=== PATIENT | female | born 1960 | race Caucasian/White ===

== ENCOUNTER 2023-06-04 15:39 | Inpatient (IN) | payer OTHER, SELFPAY ==
[2023-06-04 11:02] VITALS: BP 130/85
[2023-06-04] MEDS: ZOFRAN ODT (ORALLY DISINTEGRATING) 4 MG PO (11:07)
[2023-06-04] MEDS: ZOFRAN 4 MG IV ×2 (12:41→18:23)
[2023-06-04] MEDS: DILAUDID 1 MG IV ×2 (12:41→14:50)
[2023-06-04] MEDS: NSS 1000 IV ×2 (12:44→17:46)
[2023-06-04 12:45] LABS: % Basophils 0.2 % (0-2); % Eosinophils 0.7 % (0-6); % Immature Granulocytes 0.2 % (0-0.5); % Lymphocytes 53.9 % (20.5-51.1); % Monocytes 3.6 % (1.7-9.3); % Neutrophils 41.4 % (42.2-75.2); Absolute Eosinophils 0.1 10^3/uL (0-0.7); Absolute Lymphocytes 5.3 10^3/uL (1.2-3.4); Absolute Monocytes 0.4 10^3/uL (0.1-0.6); Absolute Neutrophils 4.1 10^3/uL (1.4-6.5); Hematocrit 43.9 % (37.0-47.0); Mean Corp Hgb Conc. 34.2 g/dL (33.0-37.0); Mean Corpuscular Hgb 32.3 pg (27.0-31.0); Mean Corpuscular Volume 94.4 fL (81.0-99.0); Mean Platelet Volume 9.9 fL (7.4-10.4); Nucleated Red Blood Cells % 0 %; Platelet Count 202 10^3/uL (130-400); Red Blood Cell Count 4.65 10^6/uL (4.20-5.40); White Blood Cell Count 9.8 10^3/uL (4.8-10.8)
[2023-06-04 12:47] VITALS: BMI 25.9
[2023-06-04 12:57] LABS: ALT (SGPT) 23 U/L (0-35); AST (SGOT) 24 U/L (14-36); Alkaline Phosphatase 80 U/L (38-126); Blood Urea Nitrogen 18 mg/dl (7-17); Calcium 9.1 mg/dl (8.4-10.2); Carbon Dioxide 27 mmol/L (22-30); Chloride 105 mmol/L (98-107); Estimated Creatinine Clearance 99 ml/min; Glucose 104 mg/dl (70-99); Potassium 4.4 mmol/L (3.5-5.1); Sodium 134 mmol/L (135-145); Total Bilirubin 0.4 mg/dl (0.2-1.3); eGFR > 60.00
[2023-06-04 13:40] LABS: Lipase 60 U/L (23-300)
[2023-06-04 14:38] VITALS: BP 113/74
--- NOTE | 2023-06-04 14:54 | ED.GENMED ---
History of Present Illness
General
Chief Complaint: Abdominal Pain
Source: patient
Exam Limitations: none
Time Seen by Provider: 06/04/23 12:13
Nursing documentation reviewed up to this point in time: agreed with
Travel History
Have you had any contact with someone who has COVID-19?: No
Do you have any symptoms of coronavirus? Fever > 100 degrees, chills, cough, shortness of breath, sore throat, loss of taste or smell, muscle aches, or headache?: No
History of Present Illness
History of Present Illness:
pt is a 62 y/o F with h/o CANDELARIO after cervical cancer treatment
h/o recurrent SBO
had been through [facility] system but she moved to this area
was dmitted in 02/03 with SBO
sometimes requires NGT and other times not
started with simlar pain and distention and n/v this am
has only vomited once
the pain is same as usual
passed gas a little here
no diarrhea, fever, chills, bloody stool
Past History
Past History
ED Past Medical History: Cancer (cervical cancer), GERD, Psychiatric (Anxiety, Panic disorder) and Other (Bowel obstruction, Adhesions)
ED Past Surgical History: Gynecological (Hysterectomy) and Other (lymph node disectioin. )
Social History
Tobacco: Non-smoker
Alcohol: Occasional
Drug: Marijuana
Personal:
Living: with family
Review of Systems
Review of Systems
Allergies reviewed?: Yes
All Other Systems: Not applicable
Phy Exam
Physical Exam
Physical Exam:
GENERAL: Alert , in no apparent distress
EYE: pupils equal and reactive
NECK: Supple
ENT: o/p clr, mmm.
CARDIAC: Regular rate and rhythm .
LUNGS: Clear breath sounds bilaterally, no acute respiratory distress, no wheezes/rales/rhonchi
ABDOMEN: Soft, lower abd tenderness, mild distension no r/g, no cvat, normal bowel sounds
NEUROLOGICAL: Alert and oriented, no focal neuro deficits
SKIN: Warm and dry, skin intact.
MUSCULOSKELETAL: No edema, well perfused. neg danae's sign
PSYCH: Normal and appropriate interaction.
Course
Orders/Labs/Results
Orders:
Orders
06/04/23 11:07
Ondansetron Orally Disint [Zofran Odt (Orally Disintegrating)] 4 mg .ROUTE .STK-MED ONE
Ondansetron Orally Disint [Zofran Odt (Orally Disintegrating)] 4 mg PO NOW STA
06/04/23 12:28
CT Abd/Pel (IV only)-DH only Urgent
Comment:
Reason For Exam: h/o sbo, vomiting and pain
0.9% Sodium Chloride 1000 ml [Nss] 1,000 ml IV BOLUS
HYDROmorphone [Dilaudid] 1 mg IV NOW STA
06/04/23 12:29
Complete Blood Count/With Diff Urgent
Comprehensive Metabolic Panel Urgent
Lipase Urgent
06/04/23 12:34
Ondansetron Injectable [Zofran] 4 mg IV NOW STA
06/04/23 14:49
HYDROmorphone [Dilaudid] 1 mg .ROUTE .STK-MED ONE
06/04/23 14:50
HYDROmorphone [Dilaudid] 1 mg IV NOW STA
Abnormal Lab Results
06/04/23
12:29
MCH 32.3 H pg
(27.0-31.0)
Sodium 134 L mmol/L
(135-145)
BUN 18 H mg/dl
(7-17)
Glucose 104 H mg/dl
(70-99)
Total Protein 6.0 L g/dl
(6.3-8.2)
06/04/23 12:29
06/04/23 12:29
Vital Signs
Initial and Last Documented VS:
Initial Vital Signs
Temp Pulse Resp BP Pulse Ox
97.8 F 89 18 130/85 97
06/04/23 11:02 06/04/23 11:02 06/04/23 11:02 06/04/23 11:02 06/04/23 11:02
Last Documented Vital Signs
Temp Pulse Resp BP Pulse Ox
98.1 F 65 18 113/74 98
06/04/23 14:38 06/04/23 14:38 06/04/23 14:38 06/04/23 14:38 06/04/23 14:38
MDM/Problems Addressed
Differential Diagnosis Includes:
sbo, partial sbo
MDM/Problems Addressed:
62 y/o F with h/o cervical cancer s/p CANDELARIO, with h/o recurrent SBO (x about 10 total in the past few years); nonop management; sometimes need NG sometimes not; started with pain an nausea this morning 1 episode vomiting, no active vomiting here, labs
ok, ct suggests partial SBO but she needs obs admission for ivf and pain meds, her pain returned and she has required another dose of iv pain meds;
gen surgery made aware
*Critical Care Note
Total Time (30-74mins, 75-104mins- exclusive of procedures): Not Applicable
ED Attending Note
-
Portions of this chart may have been created with voice recognition software.� Occasional wrong word or��sound alike� substitutions may have occurred due to the inherent limitations of voice recognition software.
Discharge Plan
Departure
Patient Disposition: Admit
Date of Disposition: 06/04/23
Time of Disposition: 14:50
Admit to: Med/Surg
Presentation/result/management discussed w/ accepting MD/DO: Hospitalist
Condition: Fair
Covid-19: Not Applicable
Discharge Problem:
SBO (small bowel obstruction)
Prescriptions:
No Action
alprazolam 0.5 mg Tablet
0.5 mg PO BID PRN (Reason: Anxiety)
omeprazole 20 mg Capsule,Delayed Release(Dr/Ec)
20 mg PO DAILY
cholecalciferol (vitamin D3) [Vitamin D3] 25 mcg (1,000 unit) Tablet
25 mcg PO DAILY
mecobalamin (vitamin B12) [B12 Active] 1,000 mcg Tablet,Chewable
1,000 mcg PO DAILY
fluoxetine [Prozac] 10 mg Capsule
10 mg PO DAILY
Referrals:
Maria Isabel Bruce MD [Family Provider] -
Interventions
Interventions:
*Risk Screen - Suicide Last Done: 06/04/23 11:02
*General Assessment Last Done: 06/04/23 11:02
*Neglect/Abuse Screening Last Done: 06/04/23 11:02
ED- Fall Risk Assessment Last Done: 06/04/23 14:40
*ED COVID-19 Vaccine History Last Done: 06/04/23 11:02
BE-Gecwit-Oojgrfzpgh Assessment Last Done: 06/04/23 14:39
Discharge Date and Time
Print Language: SWEDISH
--- NOTE | 2023-06-04 15:03 | HPS.HSE ---
Family Physician
-
Family Physician: Maria Isabel Bruce
Chief Complaint
-
abd pain
History of Present Illness
62-year-old female complaining of abdominal pain with distention/nausea and vomiting x 1 this a.m. She does report passing some gas.had formed stool last night . She has history of recurrent bowel obstruction last 12 January 2023 prior April 2022.
She denies fever, chills, chest pain, palpitations, shortness breath, cough, diarrhea, urinary symptoms.
PMH recurrent SBO last 1 01/28/2023, prior April 2022 at [facility], Hx cervical cancer status post hysterectomy, ex lap/JO x 2 anxiety, depression, GERD, former smoker [id number] total, occasional marijuana for anxiety
Medical History
Past Medical History
Past Medical History: Reports Other
Additional Past Medical History:
Recurrent SBO January 28, 2023 [place], April 2022 at [facility]
Cervical Cancer
Anxiety / Depression
GERD
Past Surgical History: Reports Other
Additional Past Surgical History:
CANDELARIO
Ex lap / JO (x 2)
Social History
Tobacco: Former Smoker (Quit several years ago. Approx 30 pack years total use.)
Alcohol: Occasional
Drug: Marijuana (Medical card for anxiety.)
Personal: (newly in the past few weeks.)
Living: With Family
Family History
Family History: Not pertinent
Allergies / Home Medications
Allergies reflects when Allergies were last updated in [facility].
Home Medications with original date entered in [facility]
Allergy/Medication List:
Allergies
Allergy/AdvReac Type Severity Reaction Status Date / Time
Sulfa (Sulfonamide Allergy Unknown Verified 06/04/23 11:04
Antibiotics)
Home Medications
alprazolam 0.5 mg tablet 0.5 mg PO BID PRN Anxiety 01/28/23
cholecalciferol (vitamin D3) 25 mcg (1,000 unit) tablet (Vitamin D3) 25 mcg PO DAILY Supplement 01/28/23
mecobalamin (vitamin B12) 1,000 mcg chewable tablet (B12 Active) 1,000 mcg PO DAILY Supplement 01/28/23
omeprazole 20 mg capsule,delayed release 20 mg PO DAILY Gastrointestinal Issue 01/28/23
fluoxetine 10 mg capsule (Prozac) 10 mg PO DAILY depression/anxiety 06/04/23
Review of Systems
-
History Source: Patient
A 12 point ROS was completed and negative except as noted: Yes
Constitutional: Denies Fever or Chills
EENT: Denies Tearing or Runny Nose
Respiratory: Denies Cough or Trouble Breathing
Cardiac: Denies Chest Pain, Diaphoresis, Palpitations or Syncope
Abdomen/GI: Reports Abdominal Pain (lower abd), Nausea and Vomiting (x1); Denies Diarrhea or Constipated
: Denies Dysuria, Frequency, Flank Pain, Incontinence or Difficulty Voiding
Musculoskeletal: Denies Joint Pain or Edema
Skin: Denies Itching or Rash
Neurological: Denies Dizzy, Headache or Weakness
Endocrine: Reports No Symptoms
Hematologic/Lymphatic: Reports No Symptoms
Psych: Reports Calm
Physical Exam
Vital Signs
Vital Signs
Temp Pulse Resp BP Pulse Ox
98.1 F 65 18 113/74 98
06/04/23 14:38 06/04/23 14:38 06/04/23 14:38 06/04/23 14:38 06/04/23 14:38
Physical Exam
General: No Apparent Distress and Conversant; No Pain, Fever or Chills
HEENT: NormoCephalic, Anicteric, Moist mucous membranes, PERRLA, [place] Conjunctivae and No Ptosis
Respiratory: Clear; No Wheezes, Rales or Rhonchi
Cardiac: S1/S2 and Regular Rhythm; No Murmur, Rub, Gallop or Peripheral Edema
Breast: Deferred by me
GI: Soft, Non Distended, Normal Bowel Sounds, Tender (lower abdomen) and No Hepatosplenomegaly
Rectal: Deferred by Provider
Genito-urinary: Deferred by me
Musculoskeletal: No Clubbing, No Cyanosis and No Edema
Skin: Warm and Dry; No Rash or Jaundice
Neuro: AO x 3, No Motor Deficits, Nonfocal/grossly intact and No Sensory Deficits; No Slurred Speech, Facial Droop, Tremors or Sedated
Psych: Calm
Laboratory Results
-
06/04/23 12:
06/04/23 12:
Laboratory Results
Total Bilirubin 0.4 mg/dl (0.2-1.3) 06/04/23 12:
AST 24 U/L (14-36) 06/04/23 12:
ALT 23 U/L (0-35) 06/04/23 12:
Alkaline Phosphatase 80 U/L (38-126) 06/04/23 12:
Lipase 60 U/L (23-300) 06/04/23 12:29
Data Reviewed
-
CT Scan: Report Reviewed by me
Lab Data: Labs Reviewed by me
Impression/Plan
-
Impression/plan:
Inpatient MedSurg
#Partial small bowel obstruction
#Hx SBO�recurrent treated medically/conservatively in past(last one was 01/28/2023
-N.p.o.
-If vomiting may require NG tube
-IV NSS
-IV Zofran
-IV PPI
-Consult surgery-Dr. Ronquillo aware
CT abdomen/pelvis IV contrast: Dilated mid small bowel with accompanying small bowel fecal sign measuring up to 4 cm likely on the basis of
adhesions possibly resulting in partial small bowel obstruction
#GERD
-Hold p.o. omeprazole give IV Protonix
#Anxiety
-Hold alprazolam 0.5 mg twice daily as needed
-Hold Prozac 10 mg daily
-Uses medical marijuana as needed
#Cervical cancer with total hysterectomy
#Laparoscopic with debulking
#Lysis of adhesions
# Former smoker
DVT prophylaxis
SCDs
Full code
--- NOTE | 2023-06-04 15:49 | W.PN.UPDATE ---
Update Note
Progress Note Update
This note serves as supplemental to history and physical dated 06/03 by Atiya Adan
62-year-old female with past medical history of recurrent SBO last 1 01/28/2023, prior April 2022 at [facility], Hx cervical cancer status post hysterectomy, ex lap/JO x 2 anxiety, depression, GERD, former smoker [id number] total, occasional
marijuana for anxiety now presents for abdominal pain, distention, nausea and vomiting this morning. Had passed gas in the waiting room although pain still present. Vitals grossly unremarkable. Labs with sodium 134. CAT scan with partial bowel
obstruction. Surgery consulted. Continue conservative management IV fluids, n.p.o., antiemetic, PPI.
--- NOTE | 2023-06-04 16:10 | CON.GS ---
Consultation
-
Date/Time Consultation Requested: 06/04/2023 3 PM
Date/Time Consultation Performed: 06/04/2023 4 PM
Requesting Provider: Dr. Khalil
Performing Provider: Dr. Perez
Reason for Consultation: Small bowel obstruction
Medical History
-
Chief Complaint: Abdominal pain, nausea
History of Present Illness:
This is a 62-year-old female with a history of cervical cancer status post total abdominal hysterectomy via Pfannenstiel incision as well as a lower exploratory laparotomy for ? Lymphadenopathy and lysis of adhesions as well as a laparoscopic lysis
of adhesions back in 2018 with history of recurrent small bowel obstructions most recently managed nonoperatively back in April and January 2023. She Represents today with similar abdominal pain as well as nausea but no vomiting. She does endorse
passing flatus earlier today, but minimal. The patient denies Fever, Chest Pain, Shortness Of Breath, Vomiting, changes in urinary habits, unintentional weight loss, jaundice, icterus, acolic stools.
Past Medical History
Past Medical History: Other (Cervical cancer, GERD, anxiety, small bowel obstructions.)
Past Surgical History: Other (Total abdominal hysterectomy, exploratory laparotomy, lap lysis of adhesions.)
Social History
Tobacco: Former Smoker
Alcohol: Occasional
Drug: Marijuana
Personal:
Living: With Family
Family History
Family History: Reviewed & Not Pertinent
Allergies / Home Medications
Allergy/AdvReac Type Severity Reaction Status Date / Time
Sulfa (Sulfonamide Allergy Unknown Verified 06/04/23 11:04
Antibiotics)
�Medication �Instructions �Recorded �Confirmed �Type
alprazolam 0.5 mg tablet 0.5 mg PO BID PRN Anxiety 01/28/23 06/04/23 History
cholecalciferol (vitamin D3) 25 25 mcg PO DAILY Supplement 01/28/23 06/04/23 History
mcg (1,000 unit) tablet (Vitamin
D3)
mecobalamin (vitamin B12) 1,000 1,000 mcg PO DAILY Supplement 01/28/23 06/04/23 History
mcg chewable tablet (B12 Active)
omeprazole 20 mg capsule,delayed 20 mg PO DAILY Gastrointestinal 01/28/23 06/04/23 History
release Issue
fluoxetine 10 mg capsule (Prozac) 10 mg PO DAILY depression/anxiety 06/04/23 06/04/23 History
Review of Systems
-
All other systems: Negative unless noted
A 10 point review of systems was completed, and was negative except as per HPI.
Physical Exam
Vital Signs
Temp Pulse Resp BP Pulse Ox
98.1 F 65 18 113/74 98
06/04/23 14:38 06/04/23 14:38 06/04/23 14:38 06/04/23 14:38 06/04/23 14:38
06/03/23 06/04/23 06/05/23
06:59 06:59 06:59
Actual Weight 79.379 kg
Body Mass Index (BMI) 25.9
Lab Results
06/04/23 12:29
06/04/23 12:29
WBC 9.8 10^3/uL (4.8-10.8) 06/04/23 12:29
Hgb 15.0 g/dL (12.0-16.0) 06/04/23 12:
Hct 43.9 % (37.0-47.0) 06/04/23 12:29
Plt Count 202 10^3/uL (130-400) 06/04/23 12:29
Abs Immat Gran (auto) 0.0 10^3/uL (0-0.05) 06/04/23 12:29
Neutrophils % 41.4 % (42.2-75.2) L 06/04/23 12:29
Physical Exam
General: Well Developed
HEENT: Normocephalic
Respiratory: Non Labored Respirations
GI: Soft, Non Distended and Tender (Focally tender in the left lower quadrant.)
Psych: Calm
Data Reviewed
-
CT Scan: Image Personally Visualized and interpreted, Report Reviewed by me, Discussed with Physician and Discussed with Patient
Labs: Labs Reviewed by me and Discussed with Patient
Total Time Spent with Patient (in minutes): 30
Assessment / Plan
-
This is a 62-year-old female with a history of cervical cancer status post total abdominal hysterectomy via Pfannenstiel, recurrent SBO cyst status post exploratory laparotomy, lysis of adhesions (last operation was in 2018), with multiple
readmissions for recurrent SBO's all manage since 2018 nonoperatively who presents with 1 day history of abdominal pain, nausea. Exam and imaging concerning for recurrent high-grade small bowel obstruction.
I reviewed the CT scan independently as well as with the reviewing radiologist. Fairly dilated segment of small bowel with some thickening and adjacent fluid however there does not seem to be any stigmata of a closed-loop obstruction.
Will pursue nonoperative management of small bowel obstruction for now.
N.p.o., IV fluids.
Can hold off on NG tube for now as her proximal bowel and stomach do not appear distended. If she does vomit however would place an NG tube.
Will follow clinically for now though anticipate a contrasted study in the next couple days.
All patient questions answered. Plan of care discussed with primary. General surgery will continue to follow.
I spent roughly 60 minutes in total for the care of this patient today including direct patient care and counseling, reviewing labs, imaging, coordination of care, as well as documentation.
[2023-06-04 17:28] VITALS: BP 168/67; BMI 26.3
[2023-06-04] MEDS: LOVENOX SC (17:58)
[2023-06-04] MEDS: DILAUDID 0.5 MG IV ×2 (18:23→23:43)
--- NOTE | 2023-06-04 19:30 | PTCARENOTE ---
Received patient from day shift RN. Pt AAOx3, VSS. Pt ambulatory in room, able to make needs known. Hypoactive BS, denying pain or nausea at this time. Oriented to room, call villareal and plan of care.
[2023-06-04 23:54] VITALS: BP 108/50
[2023-06-05] MEDS: DILAUDID 0.5 MG IV (04:37)
[2023-06-05] MEDS: NSS 1000 IV ×2 (04:37→13:14)
[2023-06-05] MEDS: DILAUDID 1 MG IV ×2 (05:00→09:52)
[2023-06-05 06:55] LABS: % Basophils 0.4 % (0-2); % Eosinophils 1.1 % (0-6); % Immature Granulocytes 0.1 % (0-0.5); % Lymphocytes 59.8 % (20.5-51.1); % Monocytes 4.3 % (1.7-9.3); % Neutrophils 34.3 % (42.2-75.2); Absolute Eosinophils 0.1 10^3/uL (0-0.7); Absolute Lymphocytes 4.3 10^3/uL (1.2-3.4); Absolute Monocytes 0.3 10^3/uL (0.1-0.6); Absolute Neutrophils 2.5 10^3/uL (1.4-6.5); Hematocrit 39.4 % (37.0-47.0); Hemoglobin 12.9 g/dL (12.0-16.0); Mean Corp Hgb Conc. 32.7 g/dL (33.0-37.0); Mean Corpuscular Hgb 31.2 pg (27.0-31.0); Mean Corpuscular Volume 95.4 fL (81.0-99.0); Mean Platelet Volume 9.8 fL (7.4-10.4); Nucleated Red Blood Cells % 0 %; Platelet Count 188 10^3/uL (130-400); Red Blood Cell Count 4.13 10^6/uL (4.20-5.40); Red Cell Dist. Width 13.1 % (11.5-14.5); White Blood Cell Count 7.2 10^3/uL (4.8-10.8)
[2023-06-05 07:19] LABS: Blood Urea Nitrogen 13 mg/dl (7-17); Calcium 8.3 mg/dl (8.4-10.2); Carbon Dioxide 29 mmol/L (22-30); Chloride 105 mmol/L (98-107); Estimated Creatinine Clearance 85 ml/min; Glucose 94 mg/dl (70-99); Potassium 4.4 mmol/L (3.5-5.1); Sodium 135 mmol/L (135-145); eGFR > 60.00
[2023-06-05 08:20] VITALS: BP 95/61
[2023-06-05 09:21] VITALS: BP 117/60; BP 145/86; PULSE 71; O2SAT 98
[2023-06-05] MEDS: ZOFRAN 4 MG IV (09:52)
[2023-06-05] MEDS: PROTONIX IV 40 MG IV (09:56)
[2023-06-05] MEDS: NSS (PRESERVATIVE FREE) 10 ML IV (09:57)
--- NOTE | 2023-06-05 10:19 | W.PN.GS2 ---
Today's Communication / Plan
-
-- Sips of clears, likely advancement tomorrow
-- If no improvement would proceed with contrast study
Assessment / Plan
-
Patient is a 62 yo F p/w SBO likely secondary to adhesions
Signs of clinical improvement with less pain, distention, passage of flatus. Recommend continued medical management. Given her recurrent episodes recommend outpatient follow-up for consideration of JO.
-- Sips of clears, likely advancement tomorrow
-- If no improvement would proceed with contrast study
-- OOB/ambulate
-- Correct lytes minimize narcotics as able
Subjective Data
-
Date of Service: June 05, 2023
Feels slightly improved. Less abdominal pain and distention, though not completely resolved. Passing flatus, no BM. No nausea or vomiting.
Objective Data
-
Intake and Output
06/04/23 06/05/23 06/06/23
06:59 06:59 06:59
Other:
Number of approximated MODERATE 4 1
amounts of urine
Vital Signs
Temp Pulse Resp BP Pulse Ox
97.7 F 64 18 95/61 98
06/05/23 08:20 06/05/23 08:20 06/05/23 08:20 06/05/23 08:20 06/05/23 08:20
Lab Results
06/05/23 05:53
06/05/23 05:53
Calcium 8.3 mg/dl (8.4-10.2) L 06/05/23 05:53
Total Bilirubin 0.4 mg/dl (0.2-1.3) 06/04/23 12:29
AST 24 U/L (14-36) 06/04/23 12:29
ALT 23 U/L (0-35) 06/04/23 12:29
Alkaline Phosphatase 80 U/L (38-126) 06/04/23 12:
Total Protein 6.0 g/dl (6.3-8.2) L 06/04/23 12:
Albumin 4.0 g/dl (3.5-5.0) 06/04/23 12:
Physical Exam
-
Gen: NAD
Abd: soft, mild tenderness, mild distension, non-peritoneal
--- NOTE | 2023-06-05 13:40 | W.PN.HOSP.TC ---
Today's Communication/Plan
-
sips of clears
supportive care
possible small bowel follow through depending on clinical course
Assessment / Plan
Assessment / Plan
Physical Exam
General: No Apparent Distress and Conversant; No Pain, Fever or Chills
HEENT: NormoCephalic, Anicteric, Moist mucous membranes, PERRLA, [place] Conjunctivae and No Ptosis
Respiratory: Clear; No Wheezes, Rales or Rhonchi
Cardiac: S1/S2 and Regular Rhythm; No Murmur, Rub, Gallop or Peripheral Edema
Breast: Deferred by me
GI: Soft, Non Distended, Normal Bowel Sounds, Tender (lower abdomen) and No Hepatosplenomegaly
Rectal: Deferred by Provider
Genito-urinary: Deferred by me
Musculoskeletal: No Clubbing, No Cyanosis and No Edema
Skin: Warm and Dry; No Rash or Jaundice
Neuro: AO x 3, No Motor Deficits, Nonfocal/grossly intact and No Sensory Deficits; No Slurred Speech, Facial Droop, Tremors or Sedated
Psych: Calm
#Partial small bowel obstruction
#Hx SBO�recurrent treated medically/conservatively in past(last one was 01/28/2023
-If vomiting may require NG tube
-IV NSS
-IV Zofran
-IV PPI
- Sips of clears, ADAT
-Surgery consulted
-OOB/ambulate
#GERD
-Hold p.o. omeprazole
-give IV Protonix
#Anxiety
-Hold alprazolam 0.5 mg twice daily as needed; add iv prn as needed
-Hold Prozac 10 mg daily
-Uses medical marijuana as needed
#Cervical cancer with total hysterectomy
#Laparoscopic with debulking
#Lysis of adhesions
# Former smoker
DVT prophylaxis
SCDs
Full code
Anticipated Discharge: 24 - 48 hours
Subjective/Interval History
-
Date of Service: June 05, 2023
slightly nauseous this am after ambulation
Objective Data
-
Labs:
Laboratory Results
06/05/23
05:53
WBC 7.2
Hgb 12.9
Hct 39.4
Plt Count 188
Sodium 135
Potassium 4.4
Chloride 105
Carbon Dioxide 29
BUN 13
Creatinine 0.7
Glucose 94
Calcium 8.3 L
Vital Signs:
Vital Signs
Temp Pulse Resp BP Pulse Ox
97.7 F 64 18 95/61 98
06/05/23 08:20 06/05/23 08:20 06/05/23 08:20 06/05/23 08:20 06/05/23 08:20
Review of Systems
-
History Source: Patient
All other systems: Not reviewed unless documented
Data Reviewed
-
CT Scan: Image personally visualized and interpreted and Report Reviewed by me
Labs: Labs Reviewed by me
[2023-06-05 16:10] VITALS: BP 92/75
--- NOTE | 2023-06-05 16:42 | CM ---
confectionery laboratory manager reviewed patient's chart and met with patient and patient lives with her spouse in a 2 story home, patient is independent with adl's and ambulation, no dme, patient drives, patient has a prescription plan and uses [facility] pharmacy.
PCP: Dr. Bruce
Plan; Home with spouse when stable.
[2023-06-05] MEDS: LOVENOX 40 MG SC (17:22)
[2023-06-05 23:38] VITALS: BP 115/67
[2023-06-06] MEDS: NSS 1000 IV ×2 (00:54→10:55)
[2023-06-06 05:41] LABS: % Basophils 0.4 % (0-2); % Immature Granulocytes 0.1 % (0-0.5); % Lymphocytes 61.8 % (20.5-51.1); % Monocytes 3.7 % (1.7-9.3); Absolute Eosinophils 0.1 10^3/uL (0-0.7); Absolute Lymphocytes 4.2 10^3/uL (1.2-3.4); Absolute Monocytes 0.3 10^3/uL (0.1-0.6); Absolute Neutrophils 2.3 10^3/uL (1.4-6.5); Hematocrit 38.1 % (37.0-47.0); Hemoglobin 12.8 g/dL (12.0-16.0); Mean Corp Hgb Conc. 33.6 g/dL (33.0-37.0); Mean Corpuscular Hgb 31.7 pg (27.0-31.0); Mean Corpuscular Volume 94.3 fL (81.0-99.0); Mean Platelet Volume 9.8 fL (7.4-10.4); Nucleated Red Blood Cells % 0 %; Platelet Count 170 10^3/uL (130-400); Red Blood Cell Count 4.04 10^6/uL (4.20-5.40); Red Cell Dist. Width 12.6 % (11.5-14.5); White Blood Cell Count 6.8 10^3/uL (4.8-10.8)
[2023-06-06 06:03] LABS: Blood Urea Nitrogen 7 mg/dl (7-17); Calcium 8.9 mg/dl (8.4-10.2); Carbon Dioxide 25 mmol/L (22-30); Chloride 106 mmol/L (98-107); Estimated Creatinine Clearance 99 ml/min; Glucose 84 mg/dl (70-99); Potassium 3.8 mmol/L (3.5-5.1); Sodium 136 mmol/L (135-145); eGFR > 60.00
[2023-06-06 08:11] VITALS: BP 119/76
[2023-06-06] MEDS: PROTONIX IV 40 MG IV (08:31)
[2023-06-06] MEDS: NSS (PRESERVATIVE FREE) 10 ML IV (08:32)
[2023-06-06 13:13] VITALS: BP 151/81; PULSE 72; O2SAT 97
--- NOTE | 2023-06-06 14:24 | W.PN.GS2 ---
Today's Communication / Plan
-
Advance diet as tolerated. Dispo planning
Assessment / Plan
-
Patient is a 62 yo F p/w SBO likely secondary to adhesions
Signs of clinical improvement with less pain, distention, passage of flatus. Recommend continued medical management. Given her recurrent episodes recommend outpatient follow-up for consideration of JO.
-- Sips of clears, likely advancement tomorrow
-- If no improvement would proceed with contrast study
-- OOB/ambulate
-- Correct lytes minimize narcotics as able
Time Spent
Total Time Spent with Patient (in minutes): 20
Subjective Data
-
Date of Service: June 06, 2023
Interval Events:
No acute events overnight. Slept well. Pain Controlled. Denies Nausea/Vomiting, +bowel function.
Objective Data
-
Intake and Output
06/05/23 06/06/23 06/07/23
06:59 06:59 06:59
Other:
Number of approximated MODERATE 4 1
amounts of urine
Number of approximated LARGE 2
amounts of urine
Vital Signs
Temp Pulse Resp BP Pulse Ox
98.1 F 69 18 119/76 98
06/06/23 08:11 06/06/23 08:11 06/06/23 08:11 06/06/23 08:11 06/06/23 09:20
Lab Results
06/06/23 05:01
06/06/23 05:01
Calcium 8.9 mg/dl (8.4-10.2) 06/06/23 05:01
Total Bilirubin 0.4 mg/dl (0.2-1.3) 06/04/23 12:29
AST 24 U/L (14-36) 06/04/23 12:29
ALT 23 U/L (0-35) 06/04/23 12:29
Alkaline Phosphatase 80 U/L (38-126) 06/04/23 12:
Total Protein 6.0 g/dl (6.3-8.2) L 06/04/23 12:
Albumin 4.0 g/dl (3.5-5.0) 06/04/23 12:
Physical Exam
-
GENERAL/NEURO: Awake, Alert, no distress
CHEST: Unlabored breathing on RA
ABDOMEN: Soft, Non-Tender, Non-Distended
--- NOTE | 2023-06-06 14:46 | W.PN.HOSP.TC ---
Today's Communication/Plan
-
adat
small bowel follow through as per surg
Assessment / Plan
Assessment / Plan
Physical Exam
General: No Apparent Distress and Conversant; No Pain, Fever or Chills
HEENT: NormoCephalic, Anicteric, Moist mucous membranes, PERRLA, [place] [address] Conjunctivae and No Ptosis
Respiratory: Clear; No Wheezes, Rales or Rhonchi
Cardiac: S1/S2 and Regular Rhythm; No Murmur, Rub, Gallop or Peripheral Edema
Breast: Deferred by me
GI: Soft, Non Distended, Normal Bowel Sounds, Tender (lower abdomen) and No Hepatosplenomegaly
Rectal: Deferred by Provider
Genito-urinary: Deferred by me
Musculoskeletal: No Clubbing, No Cyanosis and No Edema
Skin: Warm and Dry; No Rash or Jaundice
Neuro: AO x 3, No Motor Deficits, Nonfocal/grossly intact and No Sensory Deficits; No Slurred Speech, Facial Droop, Tremors or Sedated
Psych: Calm
#Partial small bowel obstruction
#Hx SBO�recurrent treated medically/conservatively in past(last one was 01/28/2023
-If vomiting may require NG tube
-IV NSS
-IV Zofran
-IV PPI
- Sips of clears, ADAT; can adv to [facility] today;
-Surgery consulted
-OOB/ambulate
#GERD
-Hold p.o. omeprazole
-give IV Protonix
#Anxiety
-Hold alprazolam 0.5 mg twice daily as needed; add iv prn as needed
-Prozac 10 mg daily started
-Uses medical marijuana as needed
#Cervical cancer with total hysterectomy
#Laparoscopic with debulking
#Lysis of adhesions
# Former smoker
DVT prophylaxis
SCDs
Full code
Anticipated Discharge: Within 24 hours
Subjective/Interval History
-
Date of Service: June 06, 2023
Symptomatically improved, passing gas
Objective Data
-
Labs:
Laboratory Results
06/06/23
05:01
WBC 6.8
Hgb 12.8
Hct 38.1
Plt Count 170
Sodium 136
Potassium 3.8
Chloride 106
Carbon Dioxide 25
BUN 7
Creatinine 0.6
Glucose 84
Calcium 8.9
Vital Signs:
Vital Signs
Temp Pulse Resp BP Pulse Ox
98.1 F 69 18 119/76 98
06/06/23 08:11 06/06/23 08:11 06/06/23 08:11 06/06/23 08:11 06/06/23 09:20
Review of Systems
-
History Source: Patient
All other systems: Not reviewed unless documented
Data Reviewed
-
CT Scan: Image personally visualized and interpreted and Report Reviewed by me
Labs: Labs Reviewed by me
[2023-06-06] MEDS: PROZAC 10 MG PO (15:18)
[2023-06-06 16:08] VITALS: BP 124/70
--- NOTE | 2023-06-06 16:15 | CM ---
chart reviewed; no skilled PT needed
--- NOTE | 2023-06-06 16:54 | PTCARENOTE ---
Received patient this am AAOx3. IVF infusing without difficulty. Pt tolerated a clear liquid diet. Diet then advanced to low residue an patient tolerated. Pt OOB ambulating in room hallway an room independently with a steady gait. Offered no
complaints. Made patient comfortable. Cont to assess patient status.
[2023-06-06] MEDS: LOVENOX 40 MG SC (17:35)
[2023-06-06] MEDS: NSS IV ×2 (19:42→23:10)
[2023-06-06 23:46] VITALS: BP 102/62
[2023-06-07 05:48] LABS: % Basophils 0.5 % (0-2); % Eosinophils 1.3 % (0-6); % Immature Granulocytes 0.3 % (0-0.5); % Lymphocytes 61.9 % (20.5-51.1); % Monocytes 4.4 % (1.7-9.3); % Neutrophils 31.6 % (42.2-75.2); Absolute Eosinophils 0.1 10^3/uL (0-0.7); Absolute Lymphocytes 3.8 10^3/uL (1.2-3.4); Absolute Monocytes 0.3 10^3/uL (0.1-0.6); Absolute Neutrophils 1.9 10^3/uL (1.4-6.5); Hematocrit 37.9 % (37.0-47.0); Hemoglobin 13.2 g/dL (12.0-16.0); Mean Corp Hgb Conc. 34.8 g/dL (33.0-37.0); Mean Corpuscular Hgb 31.7 pg (27.0-31.0); Mean Corpuscular Volume 90.9 fL (81.0-99.0); Mean Platelet Volume 9.7 fL (7.4-10.4); Nucleated Red Blood Cells % 0 %; Platelet Count 192 10^3/uL (130-400); Red Blood Cell Count 4.17 10^6/uL (4.20-5.40); Red Cell Dist. Width 12.3 % (11.5-14.5); White Blood Cell Count 6.1 10^3/uL (4.8-10.8)
[2023-06-07 06:08] LABS: Blood Urea Nitrogen 9 mg/dl (7-17); Calcium 9.1 mg/dl (8.4-10.2); Carbon Dioxide 29 mmol/L (22-30); Chloride 105 mmol/L (98-107); Estimated Creatinine Clearance 99 ml/min; Glucose 92 mg/dl (70-99); Sodium 136 mmol/L (135-145); eGFR > 60.00
[2023-06-07 08:02] VITALS: BP 107/76
[2023-06-07] MEDS: NSS (PRESERVATIVE FREE) IV (08:36)
[2023-06-07] MEDS: PROTONIX IV IV (08:36)
[2023-06-07] MEDS: PROZAC 10 MG PO (08:37)
[2023-06-07] MEDS: NSS (PRESERVATIVE FREE) 10 ML IV (09:47)
[2023-06-07] MEDS: PROTONIX IV 40 MG IV (09:49)
--- NOTE | 2023-06-07 11:00 | W.PN.GS2 ---
Addendum entered and electronically signed by Anjum Black MD 06/07/23 11:33:
pt seen and examined with CLERICAL AND OFFICE SUPPORT WORKERS
agree with documented progress note
pt reports symptoms resolve
tolerated regular dinner and breakfast
no abdominal pain, cramps, +flatus but no BM yet
AFVSS
ABD: soft, ND, NTTP, no R/R/G
A/P: clinically resolving recurrent SBO
stable for discharge
pt well educated already on jail dietary mangement for intermittent SBOs, at this point would lean towards continued expectant management unless re-occur with more frequency. offered pt outpatient follow up if she would like
Original Note:
Today's Communication / Plan
-
dispo planning
Assessment / Plan
-
Patient is a 62 yo F p/w SBO likely secondary to adhesions
Clinically much improved
-- Tolerating LRD
-- Clear for d/c from surgical standpoint
Subjective Data
-
Date of Service: June 07, 2023
Patient seen and examined at bedside with Dr. Black. Had spaghetti last night without nausea or vomiting. Eggs this am also went well. Passing flatus. No abdominal pain.
Objective Data
-
Intake and Output
06/06/23 06/07/23 06/08/23
06:59 06:59 06:59
Intake Total 2400 / 2400
Balance 2400 / 2400
Intake:
Oral fluids 1200 / 1200
IV fluids (Total) 1200 / 1200
Other:
Number of approximated MODERATE 1 2
amounts of urine
Number of approximated LARGE 2
amounts of urine
Vital Signs
Temp Pulse Resp BP Pulse Ox
98.0 F 66 17 107/76 96
06/07/23 08:02 06/07/23 08:02 06/07/23 08:02 06/07/23 08:02 06/07/23 08:02
Lab Results
06/07/23 05:20
06/07/23 05:20
Calcium 9.1 mg/dl (8.4-10.2) 06/07/23 05:20
Total Bilirubin 0.4 mg/dl (0.2-1.3) 06/04/23 12:29
AST 24 U/L (14-36) 06/04/23 12:29
ALT 23 U/L (0-35) 06/04/23 12:29
Alkaline Phosphatase 80 U/L (38-126) 06/04/23 12:29
Total Protein 6.0 g/dl (6.3-8.2) L 06/04/23 12:29
Albumin 4.0 g/dl (3.5-5.0) 06/04/23 12:29
Physical Exam
-
Gen: NAD
Abd: soft, NT, ND, non-peritoneal
--- NOTE | 2023-06-07 11:08 | W.PN.HOSP.TC ---
Addendum entered and electronically signed by Wilfredo Perez MD 06/08/23 17:51:
[id number]
Original Note:
Today's Communication/Plan
-
LRD
f/u surgery, pcp outpatient
Assessment / Plan
Assessment / Plan
Physical Exam
General: No Apparent Distress and Conversant; No Pain, Fever or Chills
HEENT: NormoCephalic, Anicteric, Moist mucous membranes, PERRLA, [place] Conjunctivae and No Ptosis
Respiratory: Clear; No Wheezes, Rales or Rhonchi
Cardiac: S1/S2 and Regular Rhythm; No Murmur, Rub, Gallop or Peripheral Edema
Breast: Deferred by me
GI: Soft, Non Distended, Normal Bowel Sounds, Tender (lower abdomen) and No Hepatosplenomegaly
Rectal: Deferred by Provider
Genito-urinary: Deferred by me
Musculoskeletal: No Clubbing, No Cyanosis and No Edema
Skin: Warm and Dry; No Rash or Jaundice
Neuro: AO x 3, No Motor Deficits, Nonfocal/grossly intact and No Sensory Deficits; No Slurred Speech, Facial Droop, Tremors or Sedated
Psych: Calm
#Partial small bowel obstruction
#Hx SBO�recurrent treated medically/conservatively in past(last one was 01/28/2023
-If vomiting may require NG tube
-IV NSS
-IV Zofran
-IV PPI
-Tolerating low residue diet; F/u outpatient
-Surgery consulted
-OOB/ambulate
#GERD
-p.o. omeprazole
#Anxiety
-alprazolam 0.5 mg twice daily as needed
-Prozac 10 mg daily started
-Uses medical marijuana as needed
#Cervical cancer with total hysterectomy
#Laparoscopic with debulking
#Lysis of adhesions
# Former smoker
DVT prophylaxis
SCDs
Full code
More than 30 minutes spent in discharge including
Final examination of the patient
Summarizing hospital stay
Instructions for continuing care to all relevant caregivers
Preparation of discharge records, prescriptions, and referral forms
Total time spent (35 in minutes):
Anticipated Discharge: Today
Subjective/Interval History
-
Date of Service: June 07, 2023
Tolerating low residue diet, passing flatus
Objective Data
-
Labs:
Laboratory Results
06/07/23
05:20
WBC 6.1
Hgb 13.2
Hct 37.9
Plt Count 192
Sodium 136
Potassium 4.0
Chloride 105
Carbon Dioxide 29
BUN 9
Creatinine 0.6
Glucose 92
Calcium 9.1
Vital Signs:
Vital Signs
Temp Pulse Resp BP Pulse Ox
98.0 F 66 17 107/76 96
06/07/23 08:02 06/07/23 08:02 06/07/23 08:02 06/07/23 08:02 06/07/23 08:02
I&O
06/06/23 06/07/23 06/08/23
06:59 06:59 06:59
Intake Total 2400 / 2400
Balance 2400 / 2400
Review of Systems
-
History Source: Patient
All other systems: Not reviewed unless documented
Data Reviewed
-
CT Scan: Image personally visualized and interpreted and Report Reviewed by me
Labs: Labs Reviewed by me
--- NOTE | 2023-06-07 11:10 | W.DS.TRANS ---
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
-
Discharge Instructions:
Discharge Diagnosis/Procedures #Partial small bowel obstruction
Diet Low Residue
Activity As tolerated
Instructions:
Stand-Alone Forms:
Changes to Home Medications: No
Discharge Medications:
DC Medications w/original date entered in [facility]
alprazolam 0.5 mg tablet 0.5 mg PO BID PRN Anxiety 01/28/23
cholecalciferol (vitamin D3) 25 mcg (1,000 unit) tablet (Vitamin D3) 25 mcg PO DAILY Supplement 01/28/23
mecobalamin (vitamin B12) 1,000 mcg chewable tablet (B12 Active) 1,000 mcg PO DAILY Supplement 01/28/23
omeprazole 20 mg capsule,delayed release 20 mg PO DAILY Gastrointestinal Issue 01/28/23
fluoxetine 10 mg capsule (Prozac) 10 mg PO DAILY depression/anxiety 06/04/23
Home Medication Changes
No
Pending Results: No
--- NOTE | 2023-06-07 11:31 | CM ---
Met with patient at bedside to discuss discharge plan
Plan: patient discharge to home today; no needs; will provide ride home
== END 2023-06-07 12:17 | disposition home or self-care (01) | DRG 390 ==
LOC: 4 EAST ACU 15:39
PROVIDERS: Clinical Nurse Specialist Family Health; Student in an Organized Health Care Education/Training Program; ADMITTING PHYSICIAN Internal Medicine; CONSULT PHYSICIAN Surgery; EMERGENCY PHYSICIAN Emergency Medicine; FAMILY PHYSICIAN Family Medicine
DX: K56.51 Intestinal adhesions [bands], with partial obstruction (principal); F41.0 Panic disorder [episodic paroxysmal anxiety]; F32.A Depression, unspecified; K21.9 Gastro-esophageal reflux disease without esophagitis; Z87.891 Personal history of nicotine dependence; Z88.2 Allergy status to sulfonamides; Z85.41 Personal history of malignant neoplasm of cervix uteri; Z90.710 Acquired absence of both cervix and uterus
CPT/HCPCS: 74177; 80048; 80053; 83690; 85025; 96361; 96374; 96375; 96376; 97161; 97530; 99285; Q9967

== ENCOUNTER 2023-11-19 19:53 | Inpatient (IN) | payer OTHER, SELFPAY ==
[2023-11-19 12:41] VITALS: BP 148/97
[2023-11-19 14:50] VITALS: BP 134/75
[2023-11-19 14:55] VITALS: BP 134/75
[2023-11-19 15:11] LABS: ALT (SGPT) 28 U/L (0-35); AST (SGOT) 26 U/L (14-36); Albumin 4.6 g/dl (3.5-5.0); Alkaline Phosphatase 98 U/L (38-126); Blood Urea Nitrogen 15 mg/dl (7-17); Calcium 9.6 mg/dl (8.4-10.2); Carbon Dioxide 27 mmol/L (22-30); Chloride 100 mmol/L (98-107); Glucose 100 mg/dl (70-99); Lipase 66 U/L (23-300); Potassium 3.7 mmol/L (3.5-5.1); Sodium 139 mmol/L (135-145); Total Bilirubin 0.8 mg/dl (0.2-1.3); Total Protein 6.6 g/dl (6.3-8.2); eGFR > 60.00
[2023-11-19] MEDS: ZOFRAN 4 MG IV ×3 (15:20→22:28)
[2023-11-19] MEDS: DILAUDID 1 MG IV ×2 (15:20→18:18)
[2023-11-19] MEDS: NSS 1000 IV ×2 (15:20→22:49)
--- NOTE | 2023-11-19 15:22 | ED.GENMED ---
History of Present Illness
General
Chief Complaint: Abdominal Pain
Time Seen by Provider: 11/19/23 14:30
History of Present Illness
History of Present Illness:
62-year-old female with history of stage IV cervical cancer status post hysterectomy complicated by adhesions and frequent bowel obstructions presenting to the emergency department for abdominal pain. Patient reports she ate a slice of pizza on
Sunday, 4 days ago, and since then has had severe abdominal cramping. She had 2 bowel movements yesterday and has been passing flatus. She has been having nausea, and had 1 episode of vomiting here. Denies chest pain or difficulty breathing. She
has been trying to clear diet without significant relief. Denies fever. Denies additional acute medical complaints
Past History
Past History
ED Past Medical History: Cancer (cervical cancer), GERD, Psychiatric (Anxiety, Panic disorder) and Other (Bowel obstruction, Adhesions)
ED Past Surgical History: Gynecological (Hysterectomy) and Other (lymph node disectioin. )
Social History
Tobacco: Non-smoker
Alcohol: Occasional
Drug: Marijuana
Personal:
Living: with family
Phy Exam
Physical Exam
Physical Exam:
General: Well-appearing, no clinical signs of dehydration, nontoxic and in no acute distress
HEENT: protecting airway
Neck: appears supple
CV: Normal heart rate
Resp: No accessory muscle use, no increased work of breathing
Abd: Soft and non-distended, generalized nonfocal tenderness, bowel sounds present
Extremities: No deformities, no swelling, no erythema
Neuro: alert, no focal neurologic deficit
: deferred
Rectal: deferred
Psych: Normal affect
Skin: Intact
Course
Orders/Labs/Results
Orders:
Orders
11/19/23 14:46
Complete Blood Count/With Diff Urgent
Comprehensive Metabolic Panel Urgent
Lipase Urgent
11/19/23 15:05
0.9% Sodium Chloride 1000 ml [Nss] 1,000 ml IV BOLUS
HYDROmorphone [Dilaudid] 1 mg IV NOW STA
Ondansetron Injectable [Zofran] 4 mg IV NOW STA
11/19/23 15:06
CT Abd/pelvis W Iv Cont Urgent
Comment:
Reason For Exam: diffuse pain, hx of several obstructions
11/19/23 17:58
HYDROmorphone [Dilaudid] 1 mg IV NOW STA
Ondansetron Injectable [Zofran] 4 mg IV NOW STA
11/19/23 18:18
Lactic Acid Urgent
Abnormal Lab Results
11/19/23
14:46
WBC 13.2 H 10^3/uL
(4.8-10.8)
MCH 31.5 H pg
(27.0-31.0)
Abs Immat Gran (auto) 0.1 H 10^3/uL
(0-0.05)
Absolute Lymphs (auto) 6.8 H 10^3/uL
(1.2-3.4)
Lymphocytes % 51.4 H %
(20.5-51.1)
Glucose 100 H mg/dl
(70-99)
11/19/23 14:46
11/19/23 14:46
Vital Signs
Initial and Last Documented VS:
Initial Vital Signs
Temp Pulse Resp BP Pulse Ox
99.1 F 122 20 148/97 97
11/19/23 12:41 11/19/23 12:41 11/19/23 12:41 11/19/23 12:41 11/19/23 12:41
Last Documented Vital Signs
Temp Pulse Resp BP Pulse Ox
99.1 F 88 18 134/75 98
11/19/23 12:41 11/19/23 14:55 11/19/23 14:55 11/19/23 14:55 11/19/23 14:55
MDM/Problems Addressed
MDM/Problems Addressed:
62-year-old female with history of recurrent bowel obstructions presenting for diffuse abdominal pain with nausea and vomiting. Vital signs on arrival are normal.
On exam, patient is in no acute distress, nontoxic. Abdomen is soft without significant distention. Generalized nonfocal tenderness. Patient high risk of obstruction. She notes that she is in significant pain. For this reason we will obtain
laboratory analysis and CT imaging, and administer Dilaudid to, Zofran, IV fluids
18:20 -labs show mild leukocytosis. Will add lactic acid. CT consistent with a partial small bowel obstruction. Surgery made aware. Plan for admission.
*Critical Care Note
Total Time (30-74mins, 75-104mins- exclusive of procedures): Not Applicable
ED Attending Note
-
Portions of this chart may have been created with voice recognition software.� Occasional wrong word or��sound alike� substitutions may have occurred due to the inherent limitations of voice recognition software.
Discharge Plan
Departure
Prescriptions:
No Action
alprazolam 0.5 mg Tablet
0.5 mg PO BID PRN (Reason: Anxiety)
omeprazole 20 mg Capsule,Delayed Release(Dr/Ec)
20 mg PO DAILY
cholecalciferol (vitamin D3) [Vitamin D3] 25 mcg (1,000 unit) Tablet
25 mcg PO DAILY
mecobalamin (vitamin B12) [B12 Active] 1,000 mcg Tablet,Chewable
1,000 mcg PO DAILY
fluoxetine [Prozac] 10 mg Capsule
10 mg PO DAILY
Referrals:
Maria Isabel Bruce MD [Family Provider] -
Interventions
Interventions:
*Neglect/Abuse Screening Last Done: 11/19/23 14:55
*ED COVID-19 Vaccine History Last Done: 11/19/23 14:53
QN-Qaibfc-Etzmhzghrt Assessment Last Done: 11/19/23 14:52
Discharge Date and Time
Print Language: INDONESIAN
[2023-11-19 15:47] LABS: Hematocrit 44.9 % (37.0-47.0); Hemoglobin 15.1 g/dL (12.0-16.0); Mean Corp Hgb Conc. 33.6 g/dL (33.0-37.0); Mean Corpuscular Hgb 31.5 pg (27.0-31.0); Mean Corpuscular Volume 93.5 fL (81.0-99.0); Mean Platelet Volume 9.7 fL (7.4-10.4); Platelet Count 266 10^3/uL (130-400); Red Cell Dist. Width 13.1 % (11.5-14.5); White Blood Cell Count 13.2 10^3/uL (4.8-10.8)
[2023-11-19 15:53] LABS: % Basophils 0.3 % (0-2); % Eosinophils 0.6 % (0-6); % Immature Granulocytes 0.5 % (0-0.5); % Lymphocytes 51.4 % (20.5-51.1); % Monocytes 2.8 % (1.7-9.3); % Neutrophils 44.4 % (42.2-75.2); Absolute Eosinophils 0.1 10^3/uL (0-0.7); Absolute Immature Granulocytes 0.1 10^3/uL (0-0.05); Absolute Lymphocytes 6.8 10^3/uL (1.2-3.4); Absolute Monocytes 0.4 10^3/uL (0.1-0.6); Absolute Neutrophils 5.9 10^3/uL (1.4-6.5); Nucleated Red Blood Cells % 0 %
[2023-11-19 18:25] VITALS: BP 131/63
[2023-11-19 18:53] LABS: Lactic Acid 0.8 mmol/L (0.7-2.0)
--- NOTE | 2023-11-19 19:07 | HPS.HSE ---
Family Physician
-
Family Physician: Maria Isabel Bruce
Chief Complaint
-
abdominal pain
History of Present Illness
62-year-old female past medical history of stage IV cervical cancer status post hysterectomy complicated by adhesions and frequent bowel obstructions, GERD, anxiety, panic disorder, presenting to the emergency room for abdominal pain. She ate a
slice of pizza 4 days ago and since has had severe abdominal cramping. She had 2 bowel movements yesterday and has been passing flatus. She has been having nausea and 1 episode of vomiting here. She denies chest pain or shortness of breath.
Denies fever.
Medical History
Past Medical History
Past Medical History: Reports Other (stage IV cervical cancer status post hysterectomy complicated by adhesions and frequent bowel obstructions, GERD, anxiety, panic disorder)
Past Surgical History: Reports Other (Gynecological (Hysterectomy) and Other (lymph node disectioin. ))
Social History
Tobacco: Non-smoker
Alcohol: None
Drug: Marijuana
Family History
Family History: Not pertinent
Allergies / Home Medications
Allergies reflects when Allergies were last updated in [facility].
Home Medications with original date entered in [facility]
Allergy/Medication List:
Allergies
Allergy/AdvReac Type Severity Reaction Status Date / Time
Sulfa (Sulfonamide Allergy Unknown Verified 11/19/23 15:20
Antibiotics)
Home Medications
cholecalciferol (vitamin D3) 25 mcg (1,000 unit) tablet (Vitamin D3) 25 mcg PO DAILY Supplement 01/28/23
fluoxetine 10 mg capsule (Prozac) 10 mg PO DAILY depression/anxiety 06/04/23
cyanocobalamin (vitamin B-12) 1,000 mcg tablet 1,000 mcg PO DAILY 11/19/23
Review of Systems
-
History Source: Patient
A 12 point ROS was completed and negative except as noted: Yes
Constitutional: Reports No Symptoms
EENT: Reports No Symptoms
Respiratory: Reports No Symptoms
Cardiac: Reports No Symptoms
Abdomen/GI: Reports See HPI
: Reports No Symptoms
Musculoskeletal: Reports No Symptoms
Skin: Reports No Symptoms
Neurological: Reports No Symptoms
Endocrine: Reports No Symptoms
Hematologic/Lymphatic: Reports No Symptoms
Psych: Reports No Symptoms
Physical Exam
Vital Signs
Vital Signs
Temp Pulse Resp BP Pulse Ox
98.3 F 77 18 131/63 97
11/19/23 18:25 11/19/23 18:25 11/19/23 14:55 11/19/23 18:25 11/19/23 18:25
Physical Exam
General: Well Developed, Well Nourished and No Apparent Distress
HEENT: NormoCephalic, Moist mucous membranes and Atraumatic
Respiratory: Clear
Cardiac: S1/S2 and Regular Rhythm; No Murmur or Rub
GI: Soft, Non Distended, Normal Bowel Sounds and Tender (RLQ tender ); No Organomegaly
Rectal: Deferred by Provider
Musculoskeletal: No Clubbing, No Cyanosis and No Edema
Skin: No Rash
Neuro: Nonfocal/grossly intact
Laboratory Results
-
11/19/23 14:46
11/19/23 14:46
Laboratory Results
Lactic Acid 0.8 mmol/L (0.7-2.0) 11/19/23 18:25
Total Bilirubin 0.8 mg/dl (0.2-1.3) 11/19/23 14:46
AST 26 U/L (14-36) 11/19/23 14:46
ALT 28 U/L (0-35) 11/19/23 14:46
Alkaline Phosphatase 98 U/L (38-126) 11/19/23 14:46
Lipase 66 U/L (23-300) 11/19/23 14:46
Data Reviewed
-
Lab Data: Labs Reviewed by me
Old Records: Reviewed
Impression/Plan
-
IMPRESSION:
PLAN:
# Partial small bowel obstruction
# History of recurrent small bowel obstructions
-N.p.o.
-IV fluids
-Zofran, Dilaudid
-General Surgery consult
Cervical cancer with total hysterectomy
-Status post laparoscopic surgery with debulking, lysis of adhesions
Anxiety
-Hold fluoxetine
GERD
Former smoker
Medical marijuana use
Full code
DVT prophylaxis heparin
N.p.o.
[2023-11-19 22:16] VITALS: BP 144/86
[2023-11-19] MEDS: DILAUDID 0.5 MG IV (22:28)
[2023-11-19] MEDS: HEPARIN 5000 UNITS SC (22:51)
[2023-11-20] MEDS: DILAUDID 0.5 MG IV (04:28)
[2023-11-20] MEDS: ZOFRAN 4 MG IV (04:29)
[2023-11-20 06:37] LABS: Hematocrit 38.2 % (37.0-47.0); Hemoglobin 12.5 g/dL (12.0-16.0); Mean Corp Hgb Conc. 32.7 g/dL (33.0-37.0); Mean Corpuscular Hgb 30.9 pg (27.0-31.0); Mean Corpuscular Volume 94.6 fL (81.0-99.0); Mean Platelet Volume 10.3 fL (7.4-10.4); Platelet Count 220 10^3/uL (130-400); Red Blood Cell Count 4.04 10^6/uL (4.20-5.40); Red Cell Dist. Width 12.8 % (11.5-14.5); White Blood Cell Count 7.6 10^3/uL (4.8-10.8)
[2023-11-20 07:04] LABS: ALT (SGPT) 21 U/L (0-35); AST (SGOT) 18 U/L (14-36); Albumin 3.6 g/dl (3.5-5.0); Alkaline Phosphatase 77 U/L (38-126); Blood Urea Nitrogen 13 mg/dl (7-17); Calcium 8.5 mg/dl (8.4-10.2); Carbon Dioxide 24 mmol/L (22-30); Chloride 105 mmol/L (98-107); Estimated Creatinine Clearance 85 ml/min; Glucose 76 mg/dl (70-99); Potassium 4.1 mmol/L (3.5-5.1); Sodium 142 mmol/L (135-145); Total Bilirubin 0.6 mg/dl (0.2-1.3); Total Protein 5.5 g/dl (6.3-8.2); eGFR > 60.00
[2023-11-20 07:11] LABS: % Basophils 0.4 % (0-2); % Eosinophils 0.5 % (0-6); % Immature Granulocytes 0.1 % (0-0.5); % Lymphocytes 60.3 % (20.5-51.1); % Neutrophils 35.7 % (42.2-75.2); Absolute Lymphocytes 4.6 10^3/uL (1.2-3.4); Absolute Monocytes 0.2 10^3/uL (0.1-0.6); Absolute Neutrophils 2.7 10^3/uL (1.4-6.5); Nucleated Red Blood Cells % 0 %
--- NOTE | 2023-11-20 07:21 | CON.GS ---
Addendum entered and electronically signed by Galo Nava MD 11/20/23 11:31:
Patient seen and examined. Agree with assessment plan as documented below.
Patient is a 62 yo F with a PMH of GERD, CLL, stage IV cervical cancer s/p CANDEALRIO via Pfannenstiel incision adjuvant XRT, and s/p exploratory laparotomy for lymphadenopathy? and JO and s/p laparoscopic JO in 2018 (all of her prior procedures have
been performed at [facility] [place] She has had recurrent issues with SBO's related to adhesions. She has previously been admitted to in 01/31/2023 and 06/02/2023. Previous episodes have been managed medically. She presents with several days
of abdominal discomfort and nausea. No episodes of vomiting. Currently she states that she is much improved and is passing flatus, no BM. No clear dietary indiscretion. No fevers or chills.
Gen: NAD
Abd: soft, NT/ND, non-peritoneal, prior incisions well healed
Labs and CT scan imaging were reviewed.
Patient is a 62 yo F p/w recurrent SBO secondary to adhesions
Patient well versed on the natural history and pathophysiology of bowel obstructions. Rapid clinical improvement with passage of flatus, decreased abdominal pain and distention. Plan for trials of sips of clears with possible clear liquids later
this afternoon. No plans or indication for surgical intervention at this time. All questions answered.
-- No plans for surgery
-- Sips of clears
-- UGI if symptoms do not improve
Original Note:
Consultation
-
Date/Time Consultation Requested: 11/19/2023
Date/Time Consultation Performed: 11/20/2023
Requesting Provider: Delaney Isidro
Performing Provider: Galo Greenberg
Reason for Consultation: SBO
Medical History
-
Chief Complaint: Nausea, Abdominal Pain
History of Present Illness:
Leny Oliveira is a 62 year old female with a past medical history of Stage IV cervical cancer s/p laparoscopic hysterectomy, pelvic radiation, CLL, history of recurrent SBO s/p x2 laparoscopic lysis of adhesions at [facility] with most recent JO
within 6 years.
She states that she was in her usual state of health until Sunday morning (11/16) when she began to feel 'off'. She thought that she was becoming sick and decided to eat soup, chicken and potatoes. However, her symptoms soon progressed to
abdominal pain, nausea and dry heaving but not vomiting. She felt the pain was worse than prior episodes in it's intensity, so much so that she was crying (which is unusual). She did not initially come to the ED as she had started having bowel
movements. However, the symptoms did not resolve over the weekend, despite the patient making herself NPO and so she finally came to the ED for evaluation and treatment.
Initially, pain medication requirements were high, but as of this morning she is felling much better and has minimal nausea/abdominal pain. She has passed quite a bit of gas since yesterday and feels much less bloated than before.
Past Medical History
Past Medical History: Cancer (Hx of Stage IV Cervical Cancer, CLL), GERD and Other (Hx of Bowel Obstruction)
Past Surgical History: Gynecological (Hysterectomy, lymph node dissection, lysis of adhesions x2)
Social History
Tobacco: Non-Smoker
Alcohol: None
Drug: Marijuana
Personal:
Living: With Family
Family History
Family History: Reviewed & Not Pertinent
Allergies / Home Medications
Allergy/AdvReac Type Severity Reaction Status Date / Time
Sulfa (Sulfonamide Allergy Unknown Verified 11/19/23 15:20
Antibiotics)
�Medication �Instructions �Recorded �Confirmed �Type
cholecalciferol (vitamin D3) 25 25 mcg PO DAILY Supplement 01/28/23 11/19/23 History
mcg (1,000 unit) tablet (Vitamin
D3)
fluoxetine 10 mg capsule (Prozac) 10 mg PO DAILY depression/anxiety 06/04/23 11/19/23 History
cyanocobalamin (vitamin B-12) 1,000 mcg PO DAILY 11/19/23 11/19/23 History
1,000 mcg tablet
Review of Systems
-
History Source: Patient
All other systems: Negative unless noted
Constitutional: No Symptoms
EENT: No Symptoms
Respiratory: No Symptoms
Cardiac: No Symptoms
Abdomen/GI: Abdominal Pain and Nausea
: No Symptoms
Musculoskeletal: No Symptoms
Skin: No Symptoms
Neurological: No Symptoms
Endocrine: No Symptoms
Hematologic/Lymphatic: No Symptoms
A 10 point review of systems was completed, and was negative except as per HPI.
Physical Exam
Vital Signs
Temp Pulse Resp BP Pulse Ox
97.8 F 86 18 144/86 95
11/19/23 22:16 11/19/23 22:16 11/19/23 22:16 11/19/23 22:16 11/19/23 22:45
11/19/23 11/20/23 11/21/23
06:59 06:59 06:59
Actual Weight 81 kg
Body Mass Index (BMI) 0.0
Lab Results
11/20/23 05:02
11/20/23 05:02
WBC 7.6 10^3/uL (4.8-10.8) 11/20/23 05:02
Hgb 12.5 g/dL (12.0-16.0) 11/20/23 05:02
Hct 38.2 % (37.0-47.0) 11/20/23 05:02
Plt Count 220 10^3/uL (130-400) 11/20/23 05:02
Abs Immat Gran (auto) 0.0 10^3/uL (0-0.05) 11/20/23 05:02
Neutrophils % 35.7 % (42.2-75.2) L 11/20/23 05:02
Physical Exam
General: Well Developed, Well Nourished, No Apparent Distress and Comfortable
HEENT: Normocephalic, Anicteric and Moist Mucous Membranes
Respiratory: Clear
Cardiac: S1/S2 and Regular Rhythm
Breast: Deferred by me
GI: Soft, Non Distended and Tender
Rectal: Deferred by Provider
Musculoskeletal: No Clubbing, No Cyanosis and No Edema
Neuro: Awake, Alert and Oriented
Assessment / Plan
-
62 year old female with PMHx of Stage IV cervical cancer s/p laparoscopic hysterectomy, pelvic radiation, CLL, history of recurrent SBO s/p x2 laparoscopic lysis of adhesions at [facility] with most recent JO within 6 years who presented to the ED
with x3d history of nausea/abdominal pain
#SBO, likely partial
- CT showing dilated, fluid filled loops with distal compression suggesting partial SBO
- AVSS, no indication for surgical intervention at this time
- c/w IVF, Zofran/Dilaudid prn for pain/nausea
- Can advance to CLD for lunch and then as tolerated to full liquid/low residue as symptoms improve
- If symptoms acutely worsen, can consider NGT placement or SB follow through
[2023-11-20 07:41] VITALS: BP 135/71
[2023-11-20 07:47] LABS: Hepatitis C Antibody Negative (Negative)
[2023-11-20] MEDS: NSS 1000 IV ×2 (09:17→22:39)
[2023-11-20] MEDS: HEPARIN 5000 UNITS SC ×2 (09:17→21:08)
--- NOTE | 2023-11-20 10:14 | CM ---
Met with patient at bedside
Dx: SBO - starting clears today
IA Completed.
Lives in a 2 story home with , 2 steps to enter, steps to 2nd floor
PLOF: Independent, uses no device
No DME in home
Denies any food/utilities/housing/transportation insecurities
PCP: Maria Isabel Bruce
Pharmacy: [facility], [id number], [place]
PLAN: Home, currently no needs anticipated.
--- NOTE | 2023-11-20 12:10 | W.PN.HOSP.TC ---
Today's Communication/Plan
-
ice chips, possible CLD later today
conservative management and supportive care
Assessment / Plan
Assessment / Plan
Physical Exam
General: Well Developed, Well Nourished and No Apparent Distress
HEENT: NormoCephalic, Moist mucous membranes and Atraumatic
Respiratory: Clear
Cardiac: S1/S2 and Regular Rhythm; No Murmur or Rub
GI: Soft, Non Distended, Normal Bowel Sounds and nontender; No Organomegaly
Rectal: Deferred by Provider
Musculoskeletal: No Clubbing, No Cyanosis and No Edema
Skin: No Rash
Neuro: Nonfocal/grossly intact
# Partial small bowel obstruction
# History of recurrent small bowel obstructions
-improving
-ice chips, and possible advancement to CLD today
-supportive care
-Surgery on board
-IV fluids
-Zofran, Dilaudid
-if worsens can perform UGI
Cervical cancer with total hysterectomy
-Status post laparoscopic surgery with debulking, lysis of adhesions
Anxiety
-fluoxetine
GERD
Former smoker
Medical marijuana use
Full code
DVT prophylaxis heparin
ADAT
Anticipated Discharge: 24 - 48 hours
Subjective/Interval History
-
Date of Service: November 20, 2023
Passing gas, symptoms improved.
Objective Data
-
Labs:
Laboratory Results
11/20/23
05:02
WBC 7.6
Hgb 12.5
Hct 38.2
Plt Count 220
Sodium 142
Potassium 4.1
Chloride 105
Carbon Dioxide 24
BUN 13
Creatinine 0.7
Glucose 76
Calcium 8.5
Total Bilirubin 0.6
AST 18
ALT 21
Alkaline Phosphatase 77
Vital Signs:
Vital Signs
Temp Pulse Resp BP Pulse Ox
98.2 F 71 15 135/71 97
11/20/23 07:41 11/20/23 07:41 11/20/23 07:41 11/20/23 07:41 11/20/23 07:41
I&O
11/19/23 11/20/23 11/21/23
06:59 06:59 06:59
Intake Total 1000 / 1000
Balance 1000 / 1000
Review of Systems
-
History Source: Patient
All other systems: Not reviewed unless documented
Data Reviewed
-
CT Scan: Image personally visualized and interpreted and Report Reviewed by me
Labs: Labs Reviewed by me
[2023-11-20 14:36] VITALS: BP 134/73
[2023-11-20] MEDS: MELATONIN 5 MG PO (22:39)
[2023-11-20 23:06] VITALS: BP 145/85
[2023-11-21 06:20] LABS: Hematocrit 33.9 % (37.0-47.0); Hemoglobin 11.8 g/dL (12.0-16.0); Mean Corp Hgb Conc. 34.8 g/dL (33.0-37.0); Mean Corpuscular Hgb 31.7 pg (27.0-31.0); Mean Corpuscular Volume 91.1 fL (81.0-99.0); Mean Platelet Volume 9.6 fL (7.4-10.4); Platelet Count 184 10^3/uL (130-400); Red Blood Cell Count 3.72 10^6/uL (4.20-5.40); Red Cell Dist. Width 12.4 % (11.5-14.5)
[2023-11-21 06:55] LABS: ALT (SGPT) 19 U/L (0-35); AST (SGOT) 19 U/L (14-36); Albumin 3.3 g/dl (3.5-5.0); Alkaline Phosphatase 67 U/L (38-126); Blood Urea Nitrogen 8 mg/dl (7-17); Calcium 8.6 mg/dl (8.4-10.2); Carbon Dioxide 27 mmol/L (22-30); Chloride 104 mmol/L (98-107); Estimated Creatinine Clearance 99 ml/min; Glucose 93 mg/dl (70-99); Magnesium 1.6 mg/dl (1.6-2.3); Potassium 4.1 mmol/L (3.5-5.1); Sodium 139 mmol/L (135-145); Total Bilirubin 0.4 mg/dl (0.2-1.3); Total Protein 5.1 g/dl (6.3-8.2); eGFR > 60.00
[2023-11-21 07:35] VITALS: BP 154/91
[2023-11-21] MEDS: PROZAC 10 MG PO (08:24)
[2023-11-21] MEDS: HEPARIN 5000 UNITS SC (08:24)
--- NOTE | 2023-11-21 11:06 | CM ---
Patient seen at bedside.
Regular diet today
no needs anticipated
PLAN: Home, no needs
--- NOTE | 2023-11-21 11:30 | W.PN.GS2 ---
Today's Communication / Plan
-
LRD
Assessment / Plan
-
62F with resolving pSBO liely 2/2 adhesions and possible a component of radiation damage to bowel function
AFVSS, passing flatus and BM, denies n/v
Plan:
Adv to LRD
Dietary education provided
If she does not do well would proceed with PO contrast imaging
If she kath LRD she is OK for DC home from surgical standpoint
DVT ppx
Subjective Data
-
Date of Service: November 21, 2023
AFVSS, ambulating, voiding, passing flatus and BMs, denies n/v
Objective Data
-
Intake and Output
11/20/23 11/21/23 11/22/23
06:59 06:59 06:59
Intake Total 1000 / 1000 2760 / 2760
Balance 1000 / 1000 2760 / 2760
Intake:
Oral fluids 0 / 0 1560 / 1560
IV fluids (Total) 1000 / 1000 1200 / 1200
Other:
Number of approximated MODERATE 1 5
amounts of urine
Number of approximated LARGE 1
amounts of urine
Vital Signs
Temp Pulse Resp BP Pulse Ox
99.0 F 84 16 154/91 98
11/21/23 07:35 11/21/23 07:35 11/21/23 07:35 11/21/23 07:35 11/21/23 07:35
Lab Results
11/21/23 05:26
11/21/23 05:26
Calcium 8.6 mg/dl (8.4-10.2) 11/21/23 05:26
Magnesium 1.6 mg/dl (1.6-2.3) 11/21/23 05:26
Total Bilirubin 0.4 mg/dl (0.2-1.3) 11/21/23 05:26
AST 19 U/L (14-36) 11/21/23 05:26
ALT 19 U/L (0-35) 11/21/23 05:26
Alkaline Phosphatase 67 U/L (38-126) 11/21/23 05:26
Total Protein 5.1 g/dl (6.3-8.2) L 11/21/23 05:26
Albumin 3.3 g/dl (3.5-5.0) L 11/21/23 05:26
Physical Exam
-
Gen: NAD
Abd: soft, nd, mild ttp diffusely
--- NOTE | 2023-11-21 12:06 | W.PN.HOSP.TC ---
Addendum entered and electronically signed by Wilfredo Perez MD 11/25/23 16:22:
SIRS due to a non-infectious source
Original Note:
Today's Communication/Plan
-
LRD
F/u PCP, Surgery outpatient
Assessment / Plan
Assessment / Plan
Physical Exam
General: Well Developed, Well Nourished and No Apparent Distress
HEENT: NormoCephalic, Moist mucous membranes and Atraumatic
Respiratory: Clear
Cardiac: S1/S2 and Regular Rhythm; No Murmur or Rub
GI: Soft, Non Distended, Normal Bowel Sounds and nontender; No Organomegaly
Rectal: Deferred by Provider
Musculoskeletal: No Clubbing, No Cyanosis and No Edema
Skin: No Rash
Neuro: Nonfocal/grossly intact
# Partial small bowel obstruction
# History of recurrent small bowel obstructions
-improving, had bowel movement this morning, distention resolved
-Advance to low residue diet this morning�tolerating low residue diet, continue low residue diet upon discharge
-supportive care
-Surgery on board�foll-up surgery outpatient
Cervical cancer with total hysterectomy
-Status post laparoscopic surgery with debulking, lysis of adhesions
Anxiety
-fluoxetine
GERD
Former smoker
Medical marijuana use
Full code
DVT prophylaxis heparin
More than 30 minutes spent in discharge including
Final examination of the patient
Summarizing hospital stay
Instructions for continuing care to all relevant caregivers
Preparation of discharge records, prescriptions, and referral forms
Total time spent (35 in minutes):
Anticipated Discharge: Today
Subjective/Interval History
-
Date of Service: November 21, 2023
Had bowel movement this morning, passing flatus, tolerated breakfast with low residue diet
Objective Data
-
Labs:
Laboratory Results
11/21/23
05:26
WBC 6.0
Hgb 11.8 L
Hct 33.9 L
Plt Count 184
Sodium 139
Potassium 4.1
Chloride 104
Carbon Dioxide 27
BUN 8
Creatinine 0.6
Glucose 93
Calcium 8.6
Total Bilirubin 0.4
AST 19
ALT 19
Alkaline Phosphatase 67
Vital Signs:
Vital Signs
Temp Pulse Resp BP Pulse Ox
99.0 F 84 16 154/91 98
11/21/23 07:35 11/21/23 07:35 11/21/23 07:35 11/21/23 07:35 11/21/23 07:35
I&O
11/20/23 11/21/23 11/22/23
06:59 06:59 06:59
Intake Total 1000 / 1000 2760 / 2760
Balance 1000 / 1000 2760 / 2760
Review of Systems
-
History Source: Patient
All other systems: Not reviewed unless documented
Data Reviewed
-
CT Scan: Image personally visualized and interpreted and Report Reviewed by me
Labs: Labs Reviewed by me
--- NOTE | 2023-11-21 12:08 | W.DS.TRANS ---
DC Summary - [employer]
-
Discharge Instructions:
Discharge Diagnosis/Procedures
# Partial small bowel obstruction
# History of recurrent small bowel obstructions
Diet Low Residue
Activity As tolerated
Instructions: Small Bowel Obstruction (DC)
Stand-Alone Forms:
Changes to Home Medications: No
Discharge Medications:
DC Medications w/original date entered in [employer]
cholecalciferol (vitamin D3) 25 mcg (1,000 unit) tablet (Vitamin D3) 25 mcg PO DAILY Supplement 01/28/23
fluoxetine 10 mg capsule (Prozac) 10 mg PO DAILY depression/anxiety 06/04/23
cyanocobalamin (vitamin B-12) 1,000 mcg tablet 1,000 mcg PO DAILY Supplement 11/19/23
Home Medication Changes
no
Pending Results: Yes
--- NOTE | 2023-11-21 12:43 | PN.CDI ---
CDI
- -
CDI:
Physician Documentation Request
Admit Date: 11/19/23 19:53
Dear Doctor Ana,
Patient admitted with partial small bowel obstruction.
WBC 11/18 13.4 Presenting heart rate 122, respiratory rate 20 , afebrile,
Please clarify which most accurately describes the patient:
SIRS due to a non-infectious source
Sepsis
Other
Use of terms such as suspected, likely, concern for, or probable (associated with a specific diagnosis that is being evaluated, monitored, or treated as if it exists) are acceptable and can be coded in the inpatient setting, when documented at the
time of discharge.
Thank you,
Tasha Mattehws RN, BSN
CDI Specialist
tiger text
Please use your independent medical judgment in providing your response.
[2023-11-21 12:55] VITALS: BP 148/78
== END 2023-11-21 13:10 | disposition home or self-care (01) | DRG 389 ==
LOC: 2 SOUTH 19:53
PROVIDERS: Emergency Medicine; ADMITTING PHYSICIAN Hospitalist; ATTENDING PHYSICIAN Internal Medicine; CONSULT PHYSICIAN Surgery; EMERGENCY PHYSICIAN Student in an Organized Health Care Education/Training Program; FAMILY PHYSICIAN Family Medicine
DX: K56.51 Intestinal adhesions [bands], with partial obstruction (principal); R65.10 Systemic inflammatory response syndrome (SIRS) of non-infectious origin without acute organ dysfunction; F32.A Depression, unspecified; F41.0 Panic disorder [episodic paroxysmal anxiety]; K21.9 Gastro-esophageal reflux disease without esophagitis; Z79.899 Other long term (current) drug therapy; Z87.19 Personal history of other diseases of the digestive system; Z87.891 Personal history of nicotine dependence; Z90.710 Acquired absence of both cervix and uterus; Z85.41 Personal history of malignant neoplasm of cervix uteri; Z92.3 Personal history of irradiation; Z85.6 Personal history of leukemia; Z88.2 Allergy status to sulfonamides
CPT/HCPCS: 74177; 80053; 83605; 83690; 83735; 85025; 85027; 86803; 96361; 96374; 96375; 96376; 99285; Q9967

== ENCOUNTER 2024-02-27 17:37 | Inpatient (IN) | payer MEDICARE, OTHER, SELFPAY ==
[2024-02-27 10:54] VITALS: BP 127/70
[2024-02-27 11:21] LABS: Urine Albumin Negative (Neg - Trace); Urine Bilirubin Negative (Negative); Urine Character Clear (Clear); Urine Color Yellow; Urine Glucose Negative (Negative); Urine Ketone Negative (Negative); Urine Leukocyte Negative (Negative); Urine Nitrite Negative (Negative); Urine Occult Blood Negative (Negative); Urine Urobilinogen Negative (Neg - 1+)
--- NOTE | 2024-02-27 11:55 | ED.GENMED ---
History of Present Illness
General
Chief Complaint: Abdominal Pain
Source: patient
Exam Limitations: none
Time Seen by Provider: 02/27/24 11:45
Nursing documentation reviewed up to this point in time: agreed with
History of Present Illness
History of Present Illness:
Patient is a 63-year-old with past history of cervical cancer, hysterectomy radiation and chemo adhesions, lysis of adhesions, bowel obstruction presents to the ER complaining abdominal pain. She reports this feels similar to her by obstructions
in the past. She started with abdominal pain yesterday and did vomit this morning. Patient was admitted November 18 and discharged November 20 for partial small bowel obstruction. At that time she had conservative management and symptoms resolved. no
fevers . She has passed gas. small amt of stool this am.
Past History
Past History
ED Past Medical History: Cancer (cervical cancer), GERD, Psychiatric (Anxiety, Panic disorder) and Other (Bowel obstruction, Adhesions)
ED Past Surgical History: Gynecological (Hysterectomy) and Other (lymph node disectioin. )
Social History
Tobacco: Non-smoker
Alcohol: Occasional
Drug: Marijuana
Personal:
Living: with family
Review of Systems
Review of Systems
Allergies reviewed?: Yes
All Other Systems: ROS reviewed and negative except as documented in HPI and ROS
Constitutional: Reports no symptoms; Denies fever, fatigue or chills
EENT: Reports no symptoms
Cardiac: Reports no symptoms
ABD/GI: Reports abdominal pain, nausea and vomiting; Denies diarrhea or constipated
: Reports no symptoms
Musculoskeletal: Reports no symptoms
Skin: Reports no symptoms
Neurological: Reports no symptoms
Psychiatric: Reports no symptoms
Phy Exam
General Physical Exam
General Presentation: no apparent distress
General age: appears stated age
General Skin: warm and dry
General Habitus: normal
General Hydration: appears well hydrated
Cardiovascular Exam
Cardiovascular Exam: regular rate/rhythm and normal peripheral pulses
Pulmonary Exam
Pulmonary Exam: lungs clear and no respiratory distress
Gastrointestinal Exam
Gastrointestinal Exam: soft and other (non specific tenderness)
Neurological Exam
Neurological Exam: alert and oriented x3
Musculoskeletal Exam
Musculoskeletal Exam: full ROM
Skin Exam
Skin Exam: normal color and warm/dry
Psychiatric Exam
Psychiatric Exam: normal mood/affect
Course
Orders/Labs/Results
Orders:
Orders
02/27/24 10:52
Electrocardiogram (*1) Urgent
Reason for Study: Abdominal Pain
02/27/24 10:53
EKG- Treatment ONCE
02/27/24 11:03
Urinalysis Reflex To Culture Urgent
Date Specimen was Collected: 02/27/24
Time Specimen was Collected: 10:53
02/27/24 12:11
IV Insert/Care/Rem.- Treatment PRN
0.9% Sodium Chloride 1000 ml [Nss] 1,000 ml IV BOLUS
HYDROmorphone [Dilaudid] 1 mg IV NOW STA
Ondansetron Injectable [Zofran] 4 mg IV NOW STA
02/27/24 12:31
Complete Blood Count/With Diff Urgent
Manual Differential Urgent
02/27/24 12:48
CT Abd/pelvis W Iv Cont Urgent
Comment:
Reason For Exam: pain n/v hx of SBO
02/27/24 13:22
Comprehensive Metabolic Panel Urgent
Lipase Urgent
02/27/24 15:28
HYDROmorphone [Dilaudid] 1 mg IV NOW STA
Ondansetron Injectable [Zofran] 4 mg IV NOW STA
02/27/24 16:41
NG Tube [Gastrointestinal Tubes] As Directed
Type: [place] sump
To suction?: Yes
Type of suction: Low intermittent
To straight drainage/gravity?: No
Directions to clamp NG tube: for med only clamp 45 min
Irrigate tube?: No
02/27/24 16:51
SURGICAL CONSULT Routine
Consulting Provider: Larry Bull
Was physician already notified: Yes
Reason for consult: impending sbo
02/27/24 16:52
Admit/Transfer Patient As Directed
Co-Sign Provider:
Level of Care: Inpatient admission
Assign to:: Medical/Surgical
Physician / Group: radha celestin
Diagnosis: impending sbo,intrac dry heaves/abd pain
Reason for Hospitalization: impending sbo,intrac dry heaves/abd pain
Expected length of stay greater than two midnights?: Yes
ELOS- Estimated Length of Stay in days: 3
I certify the patient meets the requirements for IP care: Yes
Code Status As Directed
Resuscitation Status: Full Code
02/27/24 16:56
PRN Pain Medication Management As Directed
May give lesser potent ordered pain med per pt: Yes
preference::
Protocol:: Medication orders for pain may be administered in a
manner that supports deferring to patient preference
when the pt is:
- Requesting an ordered lesser potent pain medication.
Least to most potent pain medications are defined
as: acetaminophen < NSAID < tramadol < opioids
(morphine, oxycodone, hydromorphone).
- Requesting a lesser dose of the same medication IF
ORDERED.
- Requesting a less intrusive route of administration
if both routes are prescribed by the provider (PO <
IV).
02/27/24 16:58
Pantoprazole [Protonix IV] 40 mg IV NOW STA
02/27/24 16:59
0.9% Sodium Chloride [Nss (Preservative Free)] 10 ml IV NOW STA
02/27/24 17:52
Influenza A+B Rapid Molecular Urgent
SANJIV Source: Nasal Swab
Specimen Description:
Abnormal Lab Results
02/27/24 02/27/24
12:31 13:22
MCH 31.5 H pg
(27.0-31.0)
Segmented Neutrophils 32 L %
(42-75)
Lymphocytes (Manual) 53 H %
(20-51)
BUN 19 H mg/dl
(7-17)
Glucose 100 H mg/dl
(70-99)
Total Protein 5.5 L g/dl
(6.3-8.2)
02/27/24 12:31
02/27/24 13:22
Vital Signs
Initial and Last Documented VS:
Initial Vital Signs
Temp Pulse Resp Pulse Ox
98.4 F 87 16 98
02/27/24 10:51 02/27/24 10:51 02/27/24 10:51 02/27/24 10:51
Last Documented Vital Signs
Temp Pulse Resp BP Pulse Ox
97.7 F 75 18 126/81 98
02/27/24 15:42 02/27/24 15:42 02/27/24 15:42 02/27/24 15:42 02/27/24 15:42
MDM/Problems Addressed
Differential Diagnosis Includes:
Not limited to small bowel obstruction, ileus, electrolyte abnormality, dehydration
MDM/Problems Addressed:
63 yr old female w/ history of cervical cancer, radiation chemo adhesions lysis of adhesions presents with abdominal pain nausea vomiting. She feels similar to when she had bowel structure in the past. CAT scan does show dilated small bowel
concerning for developing small bowel structure ileus excluded. Patient was treated with pain medication fluids and antiemetic. Case discussed with Dr. Blul will hold off on NGT . Will require admission to surg. will keep NPO.
*Radiology
Radiology exam reviewed: radiology read reviewed
*Pulse Oximetry
Patient hypoxic: no
*Critical Care Note
Total Time (30-74mins, 75-104mins- exclusive of procedures): Not Applicable
Patient Management
Discussion with other providers: Pharmacometrician (Dr. Bull, of surg )
ED Attending Note
-
Portions of this chart may have been created with voice recognition software.� Occasional wrong word or��sound alike� substitutions may have occurred due to the inherent limitations of voice recognition software.
Discharge Plan
Departure
Patient Disposition: Admit
Date of Disposition: 02/27/24
Time of Disposition: 15:54
Admit to: Med/Surg
Presentation/result/management discussed w/ accepting MD/DO: Hospitalist
Patient with high blood pressure during this ER visit?: No
Condition: Fair
Covid-19: Not Applicable
Discharge Problem:
developing small bowel obstruction
Interventions
Interventions:
*Risk Screen - Suicide Last Done: 02/27/24 10:51
*General Assessment Last Done: 02/27/24 12:13
*Neglect/Abuse Screening Last Done: 02/27/24 10:51
*ED COVID-19 Vaccine History Last Done: 02/27/24 12:14
DS-Mslftr-Rlmjtnyofj Assessment Last Done: 02/27/24 12:12
[2024-02-27 12:12] VITALS: BMI 26.7
[2024-02-27 12:43] LABS: Hematocrit 44.9 % (37.0-47.0); Hemoglobin 15.3 g/dL (12.0-16.0); Mean Corp Hgb Conc. 34.1 g/dL (33.0-37.0); Mean Corpuscular Hgb 31.5 pg (27.0-31.0); Mean Corpuscular Volume 92.4 fL (81.0-99.0); Mean Platelet Volume 9.2 fL (7.4-10.4); Platelet Count 305 10^3/uL (130-400); Red Blood Cell Count 4.86 10^6/uL (4.20-5.40); Red Cell Dist. Width 12.3 % (11.5-14.5); White Blood Cell Count 8.9 10^3/uL (4.8-10.8)
[2024-02-27] MEDS: NSS 1000 IV ×2 (12:46→22:00)
[2024-02-27] MEDS: ZOFRAN 4 MG IV ×2 (12:46→15:37)
[2024-02-27] MEDS: DILAUDID 1 MG IV ×3 (12:46→19:49)
[2024-02-27 13:04] LABS: Absolute Neutrophils -Man Diff 2.8 10^3/uL (1.4-6.5); Atypical Lymphocytes 10 %; Band Neutrophils 0 % (0-3); Eosinophils 3 % (0-6); Lymphocytes 53 % (20-51); Monocytes 2 % (2-9); Normal RBC Morphology Yes; Platelets Checked Yes; Segmented Neutrophils 32 % (42-75)
[2024-02-27 13:05] LABS: Total Cells Counted 100
[2024-02-27 13:52] LABS: ALT (SGPT) 24 U/L (0-35); AST (SGOT) 17 U/L (14-36); Albumin 3.7 g/dl (3.5-5.0); Alkaline Phosphatase 95 U/L (38-126); Blood Urea Nitrogen 19 mg/dl (7-17); Calcium 8.6 mg/dl (8.4-10.2); Carbon Dioxide 25 mmol/L (22-30); Chloride 106 mmol/L (98-107); Estimated Creatinine Clearance 73 ml/min; Glucose 100 mg/dl (70-99); Lipase 151 U/L (23-300); Sodium 137 mmol/L (135-145); Total Bilirubin 0.4 mg/dl (0.2-1.3); Total Protein 5.5 g/dl (6.3-8.2); eGFR > 60.00
[2024-02-27 15:42] VITALS: BP 126/81
--- NOTE | 2024-02-27 16:09 | HPS.HSE ---
Addendum entered and electronically signed by MEGHANA Rainey 02/27/24 21:11:
Flu a positive
-Symptoms of cough, runny nose, cold on and off since before June then approximately 4 days without symptoms and then reoccurring on 02/18/2024
-Past window for Tamiflu
-Advised patient to inform to test for flu and COVID or call restorative aide in a.m. for his routine visit. If he decides to go to cardiology visit she informed him to double mask
Original Note:
Family Physician
-
Family Physician: Maria Isabel Bruce
Chief Complaint
-
Small amount of vomit, belching, generalized abdominal pain.
History of Present Illness
63-year-old female complaining of abdominal pain that started yesterday with vomiting small amount this a.m. but mainly belching this morning 02/27/2024. She reports last bowel movement was this morning followed with gas and flatulence. She has
history of partial SBO 11/18 - 11/21/2023 secondary to history of cervical cancer stage IVb status post laparoscopic hysterectomy April 2012 with lymph nodes positive then requiring horizontal abdominal incision with debulking of lymph nodes/lysis of
adhesions May 2012 then radiation/chemo. She states her first bowel obstruction was in 2014. She reports recent runny nose, sore throat, has been sick with same things she states she vaped her medical marijuana which seemed to help that symptom
yesterday.
Her other past medical history includes CLL Dx 2006 stable as of January [address] Kim Sapp GERD, anxiety, panic disorder, former smoker, marijuana use.
Medical History
Past Medical History
Past Medical History: Reports Other
Additional Past Medical History:
CLL Dx 2006 stable as of January [address] [facility] [address] Kim Sapp
stage IVB cervical cancer status post laparoscopic hysterectomy April 2012 followed by linear open abdominal incision for debulking of cancerous lymph nodes May 2012 then followed by adhesions with lysis.
First SBO 2014, recent SBO November 2023
GERD
anxiety,/panic disorder
Daily marijuana flower use smoking at night
Occasional vaping during day
Former smoker
Past Surgical History: Reports Other
Additional Past Surgical History:
stage IVB cervical cancer status post laparoscopic hysterectomy April 2012 followed by linear open abdominal incision for debulking of cancerous lymph nodes May 2012 then followed by adhesions with lysis.
Social History
Tobacco: Former Smoker
Alcohol: None
Drug: Marijuana (Smokes marijuana but at night occasionally vapes daily)
Living: With Family
Employment: Retired
Family History
Family History: Not pertinent
Allergies / Home Medications
Allergies reflects when Allergies were last updated in [employer].
Home Medications with original date entered in [employer]
Allergy/Medication List:
Allergies
Allergy/AdvReac Type Severity Reaction Status Date / Time
Sulfa (Sulfonamide Allergy Unknown Verified 02/27/24 10:52
Antibiotics)
Home Medications
cholecalciferol (vitamin D3) 25 mcg (1,000 unit) tablet (Vitamin D3) 25 mcg PO DAILY Supplement 01/28/23
fluoxetine 10 mg capsule (Prozac) 10 mg PO DAILY depression/anxiety 06/04/23
cyanocobalamin (vitamin B-12) 1,000 mcg tablet 1,000 mcg PO DAILY Supplement 11/19/23
alprazolam 0.5 mg tablet 0.5 mg PO TIDPRN PRN anxiety 02/27/24
Review of Systems
-
History Source: Patient
A 12 point ROS was completed and negative except as noted: Yes
Constitutional: Denies Fever, Fatigue or Chills
EENT: Reports Sore Throat and Runny Nose
Respiratory: Reports Cough; Denies Trouble Breathing
Cardiac: Denies Chest Pain, Diaphoresis or Palpitations
Abdomen/GI: Reports Abdominal Pain (Generalized increased across lower abdomen on palpation), Nausea and Vomiting (Belching); Denies Diarrhea, Constipated, Bloody Stools or Black Stools
: Denies Dysuria, Frequency, Flank Pain, Incontinence or Difficulty Voiding
Musculoskeletal: Denies Joint Pain or Edema
Skin: Denies Itching or Rash
Neurological: Denies Dizzy, Headache or Weakness
Endocrine: Reports No Symptoms
Hematologic/Lymphatic: Reports No Symptoms
Psych: Reports Calm
Physical Exam
Vital Signs
Vital Signs
Temp Pulse Resp BP Pulse Ox
97.7 F 75 18 126/81 98
02/27/24 15:42 02/27/24 15:42 02/27/24 15:42 02/27/24 15:42 02/27/24 15:42
Physical Exam
General: Conversant and Other (Belching toward end of conversation); No Fever or Chills
HEENT: NormoCephalic, Anicteric, PERRLA, [place] Conjunctivae, No Ptosis and Nose Appears Normal
Respiratory: Clear; No Wheezes, Rales or Rhonchi
Cardiac: S1/S2 and Regular Rhythm; No Murmur, Rub, Gallop or Peripheral Edema
Breast: Deferred by me
GI: Soft, Non Distended, Tender (Across entire abdomen but increased across lower abdomen with hypoactive bowel sounds abdomen is not distended) and No Hepatosplenomegaly
Genito-urinary: Deferred by me
Musculoskeletal: No Clubbing, No Cyanosis and No Edema
Skin: Warm and Dry; No Rash
Neuro: AO x 3, No Motor Deficits, Nonfocal/grossly intact, Cranial Nerves Intact and No Sensory Deficits; No Slurred Speech, Facial Droop, Tremors or Sedated
Psych: Calm
Laboratory Results
-
02/27/24 12:31
02/27/24 13:22
Laboratory Results
Total Bilirubin 0.4 mg/dl (0.2-1.3) 02/27/24 13:22
AST 17 U/L (14-36) 02/27/24 13:22
ALT 24 U/L (0-35) 02/27/24 13:22
Alkaline Phosphatase 95 U/L (38-126) 02/27/24 13:22
Lipase 151 U/L (23-300) 02/27/24 13:22
Data Reviewed
-
CT Scan: Report Reviewed by me
Lab Data: Labs Reviewed by me
Impression/Plan
-
Impression/plan:
Admit to MedSurg
#Abdominal pain with Developing SBO
#Hx partial SBO 11/19/2023
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
-N.p.o.
-Patient requesting NG tube
-Consult general surgery Dr. Bull aware
-IV NSS
-IV Zofran as needed nausea vomiting
-IV Dilaudid as needed pain
-Flatplate abdomen in a.m.
CT abdomen pelvis with IV contrast:
1. Dilated small bowel in the pelvis concerning for developing small bowel obstruction. Progressed. Ileus cannot be completely excluded.
Limited evaluation without oral contrast.
2. Mild diverticulosis. No evidence of acute diverticulitis.
3. Moderate fecal material in the colon.
#Rhinorrhea, sore throat, cough
Has been the same symptoms
-Check influenza swab as
#Cervical cancer status post total laparoscopic hysterectomy April 2012
Followed by debulking/lysis of adhesions May 2012 then radiation and chemo
#CLL Dx 2006
-Has been stable had follow-up outpatient with Dr. Kim Sapp January 2024 reports stable
#Anxiety
-Continue fluoxetine
-Continue alprazolam 0.5 mg 3 times daily as needed anxiety
#GERD
-Will give IV Protonix 40 mg daily
#Former smoker
#Medical marijuana
-Smokes marijuana flower at night occasional vapes
-Cessation advised
#Insomnia
-Takes as needed melatonin
DVT prophylaxis
Subcu Lovenox
Full code
--- NOTE | 2024-02-27 16:32 | W.PN.UPDATE ---
Update Note
Progress Note Update
Pt seen and evaluated at bedside.
63F with acute onset abd pain, diffuse but more intense at suprapubic area that began yesterday in the evening. She has had multiple similar episodes in the past and knows how to follow a low res diet, denies any dietary indiscretion. This morning
the pain progressed to n/v prompting ED presentation. She has been passing flatus and some stool throughout up until earlier today. Denies f/c. She reports recent URI with persistent cough and malaise, tested herself for covid and was neg. Known to
our service for prior admissions for similar presentation. Presently she c/o nausea and pain.
AFVSS, mild-mod ttp on exam, diffusely and more severe at suprapubic area
labs unremarkable
CT with dilated sb loops and suspected transition point in the pelvis, similar location to prior scans also reviewed by me. No signs of bowel threat or compromise.
known hx of cervical cancer s/p hysterectomy, ex lap for debulking, chemoXRT and has undergone JO x2 in the past
We discussed that there is likely a component of chronic dysmotility in her recurrent presentations 2/2 chemoXRT and she likely also has adhesions from prior open surgery.
Plan
Agree with Hospitalist admit
Trial nonop mgmt
If nausea persists rec NGT placement
NPO/IVF
PRN pain meds and anti-emetics
DVT ppx
Ambulate
GS will follow
Full consult note to follow
--- NOTE | 2024-02-27 17:00 | W.PN.UPDATE ---
Addendum entered and electronically signed by Delaney Isidro MD 02/27/24 21:13:
Flu positive although URI symptoms since before New Years which resolved and again since Feb 17.
Original Note:
Update Note
Progress Note Update
This is an addendum to the H&P written by Atiya Adan on 02/27/2024.
63-year-old female past medical history of recurrent small bowel obstruction, cervical cancer status post total hysterectomy, anxiety, GERD, presenting with abdominal pain and vomiting.
CT abdomen pelvis shows developing small bowel obstruction. N.p.o., IV fluids, pain control, nausea control, general surgery consulted.
[2024-02-27] MEDS: PROTONIX IV 40 MG IV (17:19)
[2024-02-27] MEDS: NSS (PRESERVATIVE FREE) 10 ML IV (17:19)
[2024-02-27] MEDS: MELATONIN 5 MG PO (22:08)
[2024-02-27 22:24] VITALS: BP 107/67
[2024-02-28] MEDS: DILAUDID 1 MG IV (00:20)
[2024-02-28] MEDS: ZOFRAN 4 MG IV ×3 (00:23→16:00)
[2024-02-28 05:34] LABS: % Basophils 0.3 % (0-2); % Eosinophils 1.4 % (0-6); % Immature Granulocytes 0.1 % (0-0.5); % Lymphocytes 43.6 % (20.5-51.1); % Monocytes 4.3 % (1.7-9.3); % Neutrophils 50.3 % (42.2-75.2); Absolute Eosinophils 0.1 10^3/uL (0-0.7); Absolute Lymphocytes 3.3 10^3/uL (1.2-3.4); Absolute Monocytes 0.3 10^3/uL (0.1-0.6); Absolute Neutrophils 3.8 10^3/uL (1.4-6.5); Hematocrit 41.2 % (37.0-47.0); Hemoglobin 13.7 g/dL (12.0-16.0); Mean Corp Hgb Conc. 33.3 g/dL (33.0-37.0); Mean Corpuscular Hgb 31.1 pg (27.0-31.0); Mean Corpuscular Volume 93.4 fL (81.0-99.0); Mean Platelet Volume 9.3 fL (7.4-10.4); Nucleated Red Blood Cells % 0 %; Platelet Count 266 10^3/uL (130-400); Red Blood Cell Count 4.41 10^6/uL (4.20-5.40); Red Cell Dist. Width 12.4 % (11.5-14.5); White Blood Cell Count 7.6 10^3/uL (4.8-10.8)
[2024-02-28] MEDS: DILAUDID 0.5 MG IV ×5 (05:34→22:59)
[2024-02-28] MEDS: NSS 1000 IV ×2 (05:34→16:27)
[2024-02-28 06:06] LABS: ALT (SGPT) 21 U/L (0-35); AST (SGOT) 16 U/L (14-36); Albumin 3.4 g/dl (3.5-5.0); Alkaline Phosphatase 87 U/L (38-126); Blood Urea Nitrogen 17 mg/dl (7-17); Calcium 8.5 mg/dl (8.4-10.2); Carbon Dioxide 25 mmol/L (22-30); Chloride 104 mmol/L (98-107); Estimated Creatinine Clearance 98 ml/min; Glucose 110 mg/dl (70-99); Potassium 4.1 mmol/L (3.5-5.1); Sodium 137 mmol/L (135-145); Total Bilirubin 0.7 mg/dl (0.2-1.3); Total Protein 5.4 g/dl (6.3-8.2); eGFR > 60.00
[2024-02-28] MEDS: NSS (PRESERVATIVE FREE) 10 ML IV (08:58)
[2024-02-28] MEDS: PROTONIX IV 40 MG IV (08:58)
--- NOTE | 2024-02-28 09:03 | CON.GS ---
Consultation
-
Date/Time Consultation Performed: 02/27/24
Requesting Provider: Antionette
Performing Provider: Jorgito
Reason for Consultation: SBO
Medical History
-
Chief Complaint: Abd pain
History of Present Illness:
63F with acute onset abd pain, diffuse but more intense at suprapubic area that began yesterday in the evening. She has had multiple similar episodes in the past and knows how to follow a low res diet, denies any dietary indiscretion. This morning
the pain progressed to n/v prompting ED presentation. She has been passing flatus and some stool throughout up until earlier today. Denies f/c. She reports recent URI with persistent cough and malaise, tested herself for covid and was neg. Known to
our service for prior admissions for similar presentation. Presently she c/o nausea and pain.
Past Medical History
Past Medical History: Other (CLL Dx 2006 stable as of January 2024 ; stage IVB cervical cancer, sbo, gerd, anxiety )
Past Surgical History: Other (aparoscopic hysterectomy April 2012, then ex-lap for debulking and LND May 2012, ex-lap JO x2)
Social History
Tobacco: Non-Smoker
Alcohol: Occasional
Drug: Marijuana
Personal:
Living: With Family
Family History
Family History: Reviewed & Noncontributory
Allergies / Home Medications
Allergy/AdvReac Type Severity Reaction Status Date / Time
Sulfa (Sulfonamide Allergy Unknown Verified 02/27/24 10:52
Antibiotics)
�Medication �Instructions �Recorded �Confirmed �Type
cholecalciferol (vitamin D3) 25 25 mcg PO DAILY Supplement 01/28/23 02/27/24 History
mcg (1,000 unit) tablet (Vitamin
D3)
fluoxetine 10 mg capsule (Prozac) 10 mg PO DAILY depression/anxiety 06/04/23 02/27/24 History
cyanocobalamin (vitamin B-12) 1,000 mcg PO DAILY Supplement 11/19/23 02/27/24 History
1,000 mcg tablet
alprazolam 0.5 mg tablet 0.5 mg PO TIDPRN PRN anxiety 02/27/24 02/27/24 History
Review of Systems
-
A 10 point review of systems was completed, and was negative except as per HPI.
Physical Exam
Vital Signs
Temp Pulse Resp BP Pulse Ox
98.1 F 68 18 107/67 98
02/28/24 00:00 02/27/24 22:24 02/27/24 22:24 02/27/24 22:24 02/27/24 22:24
02/27/24 02/28/24 02/29/24
06:59 06:59 06:59
Actual Weight 82.1 kg
Body Mass Index (BMI) 26.7
Lab Results
02/28/24 05:23
02/28/24 05:23
WBC 7.6 10^3/uL (4.8-10.8) 02/28/24 05:23
Hgb 13.7 g/dL (12.0-16.0) 02/28/24 05:23
Hct 41.2 % (37.0-47.0) 02/28/24 05:23
Plt Count 266 10^3/uL (130-400) 02/28/24 05:23
Abs Immat Gran (auto) 0.0 10^3/uL (0-0.05) 02/28/24 05:23
Neutrophils % 50.3 % (42.2-75.2) 02/28/24 05:23
Physical Exam
General: No Apparent Distress
GI: Soft, Non Distended and Tender (diffuse mild ttp with mod-sev ttp at suprapubic)
Skin: Warm and Dry
Neuro: AO x 3
Psych: Calm
Data Reviewed
-
CT Scan: Image Personally Visualized and interpreted, Report Reviewed by me and Discussed with Patient
Labs: Labs Reviewed by me, Discussed with Physician and Discussed with Patient
Old Records: Reviewed
Assessment / Plan
-
63F with recurrent pSBO in setting of chronic dysmotility 2/2 radiation
AFVSS, mild-mod ttp on exam, diffusely and more severe at suprapubic area
labs unremarkable
CT with dilated sb loops and suspected transition point in the pelvis, similar location to prior scans also reviewed by me. No signs of bowel threat or compromise.
known hx of cervical cancer s/p hysterectomy, ex lap for debulking, chemoXRT and has undergone JO x2 in the past
We discussed that there is likely a component of chronic dysmotility in her recurrent presentations 2/2 chemoXRT and she likely also has adhesions from prior open surgery.
Plan
Agree with Hospitalist admit
Trial nonop mgmt
If nausea persists rec NGT placement
NPO/IVF
PRN pain meds and anti-emetics
DVT ppx
Ambulate
GS will follow
[2024-02-28 09:12] VITALS: BP 106/65
[2024-02-28 09:48] VITALS: BP 105/67
--- NOTE | 2024-02-28 11:26 | W.PN.GS2 ---
Today's Communication / Plan
-
`
Assessment / Plan
-
Assessment: 63-year-old female with recurrent small bowel obstruction; positive flu however radiographically and clinically her symptoms are more consistent with a mechanical small bowel obstruction.
Last laparotomy 2018 at outside hospital with lysis of adhesions. Previous admissions at [facility] for SBO include 02/03, 06/05, 12/05. Between these episodes she is generally feeling well and well adherent to a low residue diet.
AFVSS
X-ray imaging today reviewed and there remains a persistent dilated small bowel loop in a similar pattern as to CT imaging suggestive of persistent SBO.
Some subjective improvement but not resolved.
Plan: Okay to hold on NG tube as long as clinically stable/improving
Maintain n.p.o. except ice chips for comfort
Continue IV fluid hydration and supportive care
We had further discussions regarding indications for surgical intervention. No clinical signs of immediate bowel threat or compromise to necessitate urgent surgery.
Will follow
Subjective Data
-
Date of Service: February 28, 2024
Patient seen and examined.
Reports improvement overnight but still with some abdominal pain/discomfort. She has been able to reduce the frequency of narcotics.
Mild nausea but no vomiting.
No flatus or BM yet
No worsening abdominal bloating or distention reported.
Objective Data
-
Intake and Output
02/27/24 02/28/24 02/29/24
06:59 06:59 06:59
Intake Total 1200 / 1200
Balance 1200 / 1200
Intake:
IV fluids (Total) 1200 / 1200
Nss 1,000 ml @ 100 mls/hr IV . 1200 / 1200
Q10H REKHA Rx#:[id number]
Other:
Number of unmeasured voidings 4
Vital Signs
Temp Pulse Resp BP Pulse Ox
98.4 F 70 16 106/65 99
02/28/24 10:25 02/28/24 09:12 02/28/24 09:12 02/28/24 09:12 02/28/24 09:12
Lab Results
02/28/24 05:23
02/28/24 05:23
Calcium 8.5 mg/dl (8.4-10.2) 02/28/24 05:23
Total Bilirubin 0.7 mg/dl (0.2-1.3) 02/28/24 05:23
AST 16 U/L (14-36) 02/28/24 05:23
ALT 21 U/L (0-35) 02/28/24 05:23
Alkaline Phosphatase 87 U/L (38-126) 02/28/24 05:23
Total Protein 5.4 g/dl (6.3-8.2) L 02/28/24 05:23
Albumin 3.4 g/dl (3.5-5.0) L 02/28/24 05:23
Physical Exam
-
NAD AAOx3
ABD: Soft, slightly distended. Tenderness to palpation central and lower quadrant. Slight guarding on deep palpation. No rebound or rigidity. No significant right sided abdominal tenderness. Midline laparotomy surgical scar. No hernias.
--- NOTE | 2024-02-28 12:35 | W.PN.HOSP.TC ---
Today's Communication/Plan
-
N.p.o.
IV fluid
Pain control
Await return of bowel function
Assessment / Plan
Assessment / Plan
#Abdominal pain with Developing SBO
#Hx partial SBO 11/19/2023
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
-N.p.o.
-If it severe nausea, vomiting abdominal distention and then place NG tube
-IV NSS
-IV Zofran as needed nausea vomiting
-IV Dilaudid as needed pain
-AXR remains with distention
-General surgery following
# Influenza A positive
-Tylenol as needed. Symptomatic management. Seems out of window for Tamiflu and also unable to take p.o. meds
#Cervical cancer status post total laparoscopic hysterectomy April 2012
Followed by debulking/lysis of adhesions May 2012 then radiation and chemo
#CLL Dx 2006
-Has been stable had follow-up outpatient with Dr. Kim Sapp January 2024 reports stable
#Anxiety
-Continue fluoxetine
-Continue alprazolam 0.5 mg 3 times daily as needed anxiety
-restart above meds once can take po.
#GERD
-Will give IV Protonix 40 mg daily
#Former smoker
#Medical marijuana
-Smokes marijuana flower at night occasional vapes
-Cessation advised
#Insomnia
-Takes as needed melatonin
DVT prophylaxis
Subcu Lovenox
Full code
Anticipated Discharge: > 48 hours
Subjective/Interval History
-
Date of Service: February 28, 2024
States of intermittent abdominal pain
States of intermittent nausea
Denies passing flatulence or having bowel movements in the last 24 hours. States last bowel movement was earlier in the morning yesterday nothing since then
Objective Data
-
Labs:
Laboratory Results
02/28/24
05:23
WBC 7.6
Hgb 13.7
Hct 41.2
Plt Count 266
Sodium 137
Potassium 4.1
Chloride 104
Carbon Dioxide 25
BUN 17
Creatinine 0.6
Glucose 110 H
Calcium 8.5
Total Bilirubin 0.7
AST 16
ALT 21
Alkaline Phosphatase 87
Vital Signs:
Vital Signs
Temp Pulse Resp BP Pulse Ox
98.4 F 70 16 106/65 99
02/28/24 10:25 02/28/24 09:12 02/28/24 09:12 02/28/24 09:12 02/28/24 09:12
I&O
02/27/24 02/28/24 02/29/24
06:59 06:59 06:59
Intake Total 1200 / 1200
Balance 1200 / 1200
Physical Exam
-
General: Well Developed and No Apparent Distress
HEENT: Normocephalic, Atraumatic and Moist Mucous Membranes
Respiratory: Clear to Auscultation
Cardiac: Regular Rhythm and S1/S2; Negative Murmur, Rub or Gallop
GI: Soft, Nondistended and Normal Bowel Sounds; Negative Organomegaly
Rectal: Deferred by Provider
Musculoskeletal: No Clubbing, No Cyanosis and No Edema
Skin: Negative Rash
Neuro: Awake, Alert, Oriented, AO x 3, No Motor Deficits and Nonfocal/Grossly Intact
Psych: Calm
Data Reviewed
-
Total Time Spent with Patient (in minutes): 55
[2024-02-28 16:00] VITALS: BP 113/62
[2024-02-28 16:25] VITALS: BMI 26.2
[2024-02-28 19:19] LABS: Hepatitis C Antibody Negative (Negative)
[2024-02-28] MEDS: MELATONIN 5 MG PO (22:57)
[2024-02-28 23:19] VITALS: BP 102/63
[2024-02-29] MEDS: NSS 1000 IV (02:28)
[2024-02-29 06:43] LABS: Hematocrit 37.4 % (37.0-47.0); Hemoglobin 12.3 g/dL (12.0-16.0); Mean Corp Hgb Conc. 32.9 g/dL (33.0-37.0); Mean Corpuscular Hgb 31.1 pg (27.0-31.0); Mean Corpuscular Volume 94.7 fL (81.0-99.0); Mean Platelet Volume 9.5 fL (7.4-10.4); Platelet Count 212 10^3/uL (130-400); Red Blood Cell Count 3.95 10^6/uL (4.20-5.40); Red Cell Dist. Width 12.3 % (11.5-14.5); White Blood Cell Count 5.5 10^3/uL (4.8-10.8)
[2024-02-29 07:24] LABS: ALT (SGPT) 16 U/L (0-35); AST (SGOT) 16 U/L (14-36); Albumin 2.8 g/dl (3.5-5.0); Alkaline Phosphatase 72 U/L (38-126); Blood Urea Nitrogen 9 mg/dl (7-17); Calcium 7.8 mg/dl (8.4-10.2); Carbon Dioxide 28 mmol/L (22-30); Chloride 104 mmol/L (98-107); Estimated Creatinine Clearance 84 ml/min; Glucose 81 mg/dl (70-99); Sodium 138 mmol/L (135-145); Total Bilirubin 0.5 mg/dl (0.2-1.3); Total Protein 4.6 g/dl (6.3-8.2); eGFR > 60.00
[2024-02-29 07:45] VITALS: BP 107/59
--- NOTE | 2024-02-29 08:04 | CM ---
Reviewed the chart notes and spoke with the patient at the bedside. Patient resides with her spouse in a two story home with two steps to enter. The patient reports no DME/VN/SNF in the past. The patient confirmed her pharmacy of choice is the
[facility] and PCP is Maria Isabel Bruce. CM continues to be available to patient/family and is monitoring medical plan for needs at discharge.
Plan: Discharge to home when medically stable. No needs anticipated.
[2024-02-29 08:05] LABS: % Basophils 0.5 % (0-2); % Eosinophils 1.3 % (0-6); % Immature Granulocytes 0.2 % (0-0.5); % Monocytes 5.3 % (1.7-9.3); % Neutrophils 38.7 % (42.2-75.2); Absolute Eosinophils 0.1 10^3/uL (0-0.7); Absolute Monocytes 0.3 10^3/uL (0.1-0.6); Absolute Neutrophils 2.1 10^3/uL (1.4-6.5); Nucleated Red Blood Cells % 0 %
[2024-02-29] MEDS: NSS (PRESERVATIVE FREE) 10 ML IV (09:16)
[2024-02-29] MEDS: PROTONIX IV 40 MG IV (09:16)
--- NOTE | 2024-02-29 10:48 | PTCARENOTE ---
Patient reports that she tolerated clear liquids for breakfast; ambulating in hallway.
--- NOTE | 2024-02-29 11:03 | CM ---
Reviewed the chart notes. CM continues to be available to patient/family and is monitoring medical plan for needs at discharge.
Plan: Discharge to home when medically stable. No needs anticipated.
--- NOTE | 2024-02-29 11:15 | W.PN.GS2 ---
Addendum entered and electronically signed by Larry Bull MD 02/29/24 11:45:
I saw and examined the patient.
The Support Coordinator's note was reviewed and I agree with the note.
Comment: feels improved, nausea resolved, pain much improved, passing flatus, exam minimal distention, nt, will trial cld. OK to ADAT to LRD if she feels up to it
Original Note:
Today's Communication / Plan
-
Trial of clears
Assessment / Plan
-
Assessment: 63-year-old female with recurrent small bowel obstruction; positive flu however radiographically and clinically her symptoms are more consistent with a mechanical small bowel obstruction.
Last laparotomy 2018 at outside hospital with lysis of adhesions. Previous admissions at [facility] for SBO include 02/03, 06/05, 12/05. Between these episodes she is generally feeling well and well adherent to a low residue diet.
AFVSS
Continues to improve. Passing flatus, exam improved
Plan:
Trial of clears, ok to advance to FLD later today if tolerating
Continue IV fluid hydration and supportive care
Continue to follow clinically
Subjective Data
-
Date of Service: February 29, 2024
Patient seen and examined at bedside with Dr. Bull. Notes she is now passing flatus. Ambulating in halls. Denies n/v. Appetite is returning.
Objective Data
-
Intake and Output
02/28/24 02/29/24 03/01/24
06:59 06:59 06:59
Intake Total 1200 / 1200 400 / 400
Balance 1200 / 1200 400 / 400
Intake:
Oral fluids 0 / 0
IV fluids (Total) 1200 / 1200 400 / 400
Nss 1,000 ml @ 100 mls/hr IV . 1200 / 1200
Q10H REKHA Rx#:[id number]
Other:
Number of unmeasured voidings 4
Number of approximated MODERATE 3
amounts of urine
Vital Signs
Temp Pulse Resp BP Pulse Ox
99.0 F 66 17 107/59 97
02/29/24 07:45 02/29/24 07:45 02/29/24 07:45 02/29/24 07:45 02/29/24 07:45
Lab Results
02/29/24 06:16
02/29/24 06:16
Calcium 7.8 mg/dl (8.4-10.2) L 02/29/24 06:16
Total Bilirubin 0.5 mg/dl (0.2-1.3) 02/29/24 06:16
AST 16 U/L (14-36) 02/29/24 06:16
ALT 16 U/L (0-35) 02/29/24 06:16
Alkaline Phosphatase 72 U/L (38-126) 02/29/24 06:16
Total Protein 4.6 g/dl (6.3-8.2) L 02/29/24 06:16
Albumin 2.8 g/dl (3.5-5.0) L 02/29/24 06:16
Physical Exam
-
NAD AAOx3
ABD: Soft, slightly distended. Nt. No rebound or rigidity. Midline laparotomy surgical scar. No hernias.
--- NOTE | 2024-02-29 12:57 | W.PN.HOSP.TC ---
Today's Communication/Plan
-
clears
IVF
monitor for po intake tolerance
Assessment / Plan
Assessment / Plan
#Abdominal pain with Developing SBO
#Hx partial SBO 11/19/2023
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
-If it severe nausea, vomiting abdominal distention and then place NG tube
-IV NSS
-IV Zofran as needed nausea vomiting
-IV Dilaudid as needed pain
-AXR remains with distention
-Diet advance to clear liquid diet. Can we advance to LAD if patient is able to tolerated without any difficulty.
-Recommend continue to ambulate out of bed.
-General surgery following
# Influenza A positive
-Tylenol as needed. Symptomatic management. Seems out of window for Tamiflu and also unable to take p.o. meds
#Cervical cancer status post total laparoscopic hysterectomy April 2012
Followed by debulking/lysis of adhesions May 2012 then radiation and chemo
#CLL Dx 2006
-Has been stable had follow-up outpatient with Dr. Kim Sapp January 2024 reports stable
#Anxiety
-Continue fluoxetine
-Continue alprazolam 0.5 mg 3 times daily as needed anxiety
-restart above meds once can take po.
#GERD
-Will give IV Protonix 40 mg daily
#Former smoker
#Medical marijuana
-Smokes marijuana flower at night occasional vapes
-Cessation advised
#Insomnia
-Takes as needed melatonin
DVT prophylaxis
Subcu Lovenox
Full code
Anticipated Discharge: > 48 hours
Subjective/Interval History
-
Date of Service: February 29, 2024
passing increasing amount of flatulence
No bowel movements
Ambulating in the hallway
Denies abdominal pain nausea vomiting
Objective Data
-
Labs:
Laboratory Results
02/29/24
06:16
WBC 5.5
Hgb 12.3
Hct 37.4
Plt Count 212 D
Sodium 138
Potassium 4.0
Chloride 104
Carbon Dioxide 28
BUN 9
Creatinine 0.7
Glucose 81
Calcium 7.8 L
Total Bilirubin 0.5
AST 16
ALT 16
Alkaline Phosphatase 72
Vital Signs:
Vital Signs
Temp Pulse Resp BP Pulse Ox
99.0 F 66 17 107/59 97
02/29/24 07:45 02/29/24 07:45 02/29/24 07:45 02/29/24 07:45 02/29/24 07:45
I&O
02/28/24 02/29/24 03/01/24
06:59 06:59 06:59
Intake Total 1200 / 1200 400 / 400
Balance 1200 / 1200 400 / 400
Physical Exam
-
General: Well Developed and No Apparent Distress
HEENT: Normocephalic, Atraumatic and Moist Mucous Membranes
Respiratory: Clear to Auscultation
Cardiac: Regular Rhythm and S1/S2; Negative Murmur, Rub or Gallop
GI: Soft, Nondistended and Normal Bowel Sounds; Negative Organomegaly
Rectal: Deferred by Provider
Musculoskeletal: No Clubbing, No Cyanosis and No Edema
Skin: Negative Rash
Neuro: Awake, Alert, Oriented, AO x 3, No Motor Deficits and Nonfocal/Grossly Intact
Psych: Calm
Data Reviewed
-
Total Time Spent with Patient (in minutes): 55
[2024-02-29] MEDS: NSS IV (14:12)
[2024-02-29 15:53] VITALS: BP 110/66
--- NOTE | 2024-02-29 16:18 | W.DCSUMMARY ---
Discharge Summary
Discharge Data
Date of Admission: 02/27/24
Date of Discharge: 02/29/24
-
Pending Results: No
Hospital Course
63-year-old respiratory status cervical cancer status post hysterectomy, CLL anxiety, GERD, history of tobacco abuse, history of partial SBO who is presented with complaint of abdominal pain nausea vomiting. Patient with CT abdomen pelvis with
concern for developing SBO. Patient was kept n.p.o. and received IV fluid. Patient was eval by general surgery. Patient had significant pain and vomiting. Post vomiting patient felt better thus NG tube was not placed. Patient started to feel
better. Patient was passing increasing amount of flatulence and general surgery advance diet from liquids to low residue diet. Patient tolerated low residue diet without any abdominal pain nausea or vomiting. Patient notices symptoms of bowel
obstruction and understand to go easy on up titration of her diet. Patient also understand that she is to return to the ER if you develop significant abdominal pain nausea or vomiting. Currently patient vital signs are stable and she is
tolerating diet, passing flatulence and ambulating without any difficulty. Patient eager to get discharged home. Per general surgery patient can be discharged.
Discharge Plan
-
Patient Disposition: Home (Routine Discharge)
Discharge Diagnosis/Procedures: Small bowel obstruction
Condition: Fair
Diet: Low Residue
Activity: As tolerated
Driving Restrictions: As prior to admission
Referrals:
Maria Isabel Bruce MD [Family Provider] - in less than 1 week
Anjum Black MD [Active] - in four to six weeks
Prescriptions:
Continued
cholecalciferol (vitamin D3) [Vitamin D3] 25 mcg (1,000 unit) Tablet
25 mcg PO DAILY
fluoxetine [Prozac] 10 mg Capsule
10 mg PO DAILY
cyanocobalamin (vitamin B-12) 1,000 mcg Tablet
1,000 mcg PO DAILY
alprazolam 0.5 mg Tablet
0.5 mg PO TIDPRN PRN (Reason: anxiety)
Patient Comments:
02/27/24: last filled 02/04/24 for 45 tablets over 15 days
Discharge Orders:
Discharge Patient (As Directed); Ordered 02/29/24
Ordered By: Torito Sofia
Discharge Date and Time
Print Language: DANISH
== END 2024-02-29 17:00 | disposition home or self-care (01) | DRG 390 ==
LOC: 2 NORTH 17:37
PROVIDERS: Clinical Nurse Specialist Family Health; ADMITTING PHYSICIAN Hospitalist; ATTENDING PHYSICIAN Hospitalist; CONSULT PHYSICIAN Surgery; EMERGENCY PHYSICIAN Emergency Medicine; FAMILY PHYSICIAN Family Medicine
DX: K56.609 Unspecified intestinal obstruction, unspecified as to partial versus complete obstruction (principal); J10.1 Influenza due to other identified influenza virus with other respiratory manifestations; K21.9 Gastro-esophageal reflux disease without esophagitis; F17.290 Nicotine dependence, other tobacco product, uncomplicated; F41.0 Panic disorder [episodic paroxysmal anxiety]; G47.00 Insomnia, unspecified; Z79.899 Other long term (current) drug therapy; Z85.41 Personal history of malignant neoplasm of cervix uteri; Z90.710 Acquired absence of both cervix and uterus; Z88.2 Allergy status to sulfonamides; Z92.21 Personal history of antineoplastic chemotherapy; Z92.3 Personal history of irradiation
CPT/HCPCS: 74019; 74177; 80053; 81003; 83690; 85025; 86803; 87502; 93005; 96361; 96374; 96375; 96376; 97162; 99285; Q9967

== ENCOUNTER → 2024-04-03 14:02 | Outpatient (REF) | payer MEDICARE, OTHER, SELFPAY | LOC: HWRAD 14:02 | PROVIDERS: ATTENDING PHYSICIAN Internal Medicine Critical Care Medicine; FAMILY PHYSICIAN Family Medicine | DX: J43.9 Emphysema, unspecified (principal); R05.3 Chronic cough; C91.10 Chronic lymphocytic leukemia of B-cell type not having achieved remission | CPT/HCPCS: 71250 ==

== ENCOUNTER 2024-04-17 06:20 | Day surgery (SDC) | payer MEDICARE, OTHER, SELFPAY | END 2024-04-17 16:43 | disposition home or self-care (01) | LOC: GI 06:20 | PROVIDERS: ATTENDING PHYSICIAN Internal Medicine Gastroenterology | DX: K64.8 Other hemorrhoids (principal); K57.30 Diverticulosis of large intestine without perforation or abscess without bleeding; K31.7 Polyp of stomach and duodenum; K31.89 Other diseases of stomach and duodenum; D12.0 Benign neoplasm of cecum; D12.2 Benign neoplasm of ascending colon; K63.5 Polyp of colon; K29.50 Unspecified chronic gastritis without bleeding | CPT/HCPCS: 44361; 45380; 88305; 88342 ==

== ENCOUNTER → 2024-04-25 08:35 | Outpatient (REF) | payer MEDICARE, OTHER, SELFPAY | LOC: RAD 08:35 | PROVIDERS: ATTENDING PHYSICIAN Surgery; FAMILY PHYSICIAN Family Medicine | DX: Z87.19 Personal history of other diseases of the digestive system (principal) | CPT/HCPCS: 74250 ==

== ENCOUNTER 2024-07-25 13:03 | Inpatient (IN) | payer MEDICARE, OTHER, SELFPAY ==
[2024-07-25] VITALS (11 sets, daily range): BP systolic 98–138; BP diastolic 43–85; BMI 29.2; BMI 26.5
--- NOTE | 2024-07-25 08:16 | ED.GENMED ---
History of Present Illness
General
Chief Complaint: Abdominal Pain
Source: patient
Exam Limitations: none
Time Seen by Provider: 07/25/24 08:05
Nursing documentation reviewed up to this point in time: agreed with
History of Present Illness
History of Present Illness:
63-year-old female with a history of a previous hysterectomy secondary to cervical cancer, multiple surgeries for lysis of adhesions, most recent in 2018, history of SBO presents with pain similar to her previous SBO which began at 5 AM this
morning. Patient got up to go to the bathroom and started feeling discomfort generalized in her abdomen. She tried to have a bowel movement but was unable to. Patient developed nausea and dry heaves since. Her pain is up to a 6 out of 10 and is
diffuse. She feels like she cannot pass gas. This feels very similar to her previous SBO. She has seen Dr. Kaplan previously for this. She has not had a resection. Patient did take a dose of Xanax this morning but did not take anything for
pain.
Past History
Past History
ED Past Medical History: Cancer (cervical cancer), GERD, Psychiatric (Anxiety, Panic disorder) and Other (Bowel obstruction, Adhesions)
ED Past Surgical History: Gynecological (Hysterectomy) and Other (lymph node disectioin. )
Social History
Tobacco: Non-smoker
Alcohol: Occasional
Drug: Marijuana
Personal:
Living: with family
Review of Systems
Review of Systems
Allergies reviewed?: Yes
All Other Systems: Not applicable
Phy Exam
Physical Exam
Physical Exam:
GENERAL: Alert , in no apparent distress
EYE: pupils equal and reactive
NECK: Supple
ENT: o/p clr, mmm.
CARDIAC: Regular rate and rhythm .
LUNGS: Clear breath sounds bilaterally, no acute respiratory distress, no wheezes/rales/rhonchi
ABDOMEN: Soft, diffuse mild bloating, tenderness no r/g, no cvat, normal bowel sounds
NEUROLOGICAL: Alert and oriented, no focal neuro deficits
SKIN: Warm and dry, skin intact.
MUSCULOSKELETAL: No edema, well perfused.
PSYCH: Normal and appropriate interaction.
Course
Orders/Labs/Results
Orders:
Orders
07/25/24 08:15
CT Abd/Pel (IV only)-DH only Urgent
Comment:
Reason For Exam: h/o SBO, vomiting;
0.9% Sodium Chloride 1000 ml [Nss] 1,000 ml IV BOLUS
HYDROmorphone [Dilaudid] 0.5 mg IV NOW STA
Ondansetron Injectable [Zofran] 4 mg IV NOW STA
07/25/24 08:20
Complete Blood Count/With Diff Urgent
Comprehensive Metabolic Panel Urgent
Lipase Urgent
07/25/24 08:41
Urinalysis Reflex To Culture Urgent
Date Specimen was Collected: 07/25/24
Time Specimen was Collected: 08:21
Urine Microscopic Reflex Cult Urgent
Urine Culture Urgent
SANJIV Source: U
Specimen Description:
Date Specimen was Collected: 07/25/24
Time Specimen was Collected: 08:21
07/25/24 08:56
HYDROmorphone [Dilaudid] 0.5 mg IV NOW STA
07/25/24 11:17
Ketorolac [Toradol] 30 mg IV NOW STA
07/25/24 12:37
Admit/Transfer Patient As Directed
Co-Sign Provider:
Level of Care: Inpatient admission
Assign to:: Medical/Surgical
Physician / Group: [email or web address]
Diagnosis: small bowel obstrucion
Reason for Hospitalization: small bowel obstruction
Expected length of stay greater than two midnights?: Yes
ELOS- Estimated Length of Stay in days: 2
I certify the patient meets the requirements for IP care: Yes
Code Status As Directed
Resuscitation Status: Full Code
PRN Pain Medication Management As Directed
May give lesser potent ordered pain med per pt: Yes
preference::
Protocol:: Medication orders for pain may be administered in a
manner that supports deferring to patient preference
when the pt is:
- Requesting an ordered lesser potent pain medication.
Least to most potent pain medications are defined
as: acetaminophen < NSAID < tramadol < opioids
(morphine, oxycodone, hydromorphone).
- Requesting a lesser dose of the same medication IF
ORDERED.
- Requesting a less intrusive route of administration
if both routes are prescribed by the provider (PO <
IV).
07/25/24 13:58
0.9% Sodium Chloride 1000 ml [Nss] 1,000 ml IV 100 mls/hr
HYDROmorphone [Dilaudid] 0.5 mg IV Q4HPRN PRN
Ondansetron Injectable [Zofran] 4 mg IV Q6HPRN PRN
07/25/24 13:58
SURGICAL CONSULT Routine
Consulting Provider: Anjum Kaplan
Was physician already notified: Yes
Activity As Directed
Activity Level: As Tolerated
Vital Signs As Directed
Frequency: Per unit guidelines
DX Deep Vein Thrombosis Video Routine
07/25/24 Dinner
NPO
Allow oral meds: Yes
Allow clear liquids: No
07/25/24 20:00
Heparin 5,000 units SC Q12
07/26/24 06:00
Complete Blood Count/With Diff IN AM
Comprehensive Metabolic Panel IN AM
Abnormal Lab Results
07/25/24 07/25/24
08:20 08:41
MCH 32.0 H pg
(27.0-31.0)
Absolute Lymphs (auto) 5.0 H 10^3/uL
(1.2-3.4)
Neutrophils % 28.2 L %
(42.2-75.2)
Lymphocytes % 66.4 H %
(20.5-51.1)
BUN 23 H mg/dl
(7-17)
Glucose 107 H mg/dl
(70-99)
Total Protein 6.1 L g/dl
(6.3-8.2)
Ur Occult Blood Reflex 1+ A
(Negative)
Leukocyte Esterase Rfl 1+ A
(Negative)
07/25/24 08:20
07/25/24 08:20
Vital Signs
Initial and Last Documented VS:
Initial Vital Signs
Temp Pulse Resp BP Pulse Ox
36.5 C 70 16 103/76 98
07/25/24 07:28 07/25/24 07:28 07/25/24 07:28 07/25/24 07:28 07/25/24 07:28
Last Documented Vital Signs
Temp Pulse Resp BP Pulse Ox
36.6 C 62 16 129/69 96
07/25/24 14:03 07/25/24 14:03 07/25/24 14:03 07/25/24 14:03 07/25/24 14:03
MDM/Problems Addressed
Differential Diagnosis Includes:
SBO, ileus, enteritis, uti
MDM/Problems Addressed:
63 y/o F
h/o multiple SBO in the past
sometimes treated witH NGT
previous hysterectomy, lysis of adhesions
presents with several hours of similar type pain diffusely in abdomen, coming in waves, nausea, dry heaves;
no fever
abdomen soft, hypoactive BS
mild distension
pending CT
CT shows SBO
d/w dr. kaplan
will admit to medicine, ivf, npo
*Pulse Oximetry
Patient hypoxic: no
Comment: 96%
*Critical Care Note
Total Time (30-74mins, 75-104mins- exclusive of procedures): Not Applicable
ED Attending Note
-
Portions of this chart may have been created with voice recognition software.� Occasional wrong word or��sound alike� substitutions may have occurred due to the inherent limitations of voice recognition software.
Discharge Plan
Departure
Patient Disposition: Admit
Date of Disposition: 07/25/24
Time of Disposition: 12:20
Admit to: Med/Surg
Presentation/result/management discussed w/ accepting MD/DO: Hospitalist
Condition: Fair
Covid-19: Not Applicable
Discharge Problem:
Complete small bowel obstruction
Interventions
Interventions:
*Risk Screen - Suicide Last Done: 07/25/24 07:28
*General Assessment Last Done: 07/25/24 07:45
*Neglect/Abuse Screening Last Done: 07/25/24 07:28
*ED- Fall Risk Assessment Last Done: 07/25/24 07:45
*ED COVID-19 Vaccine History Last Done: 07/25/24 14:13
*Nursing Disposition Last Done: 07/25/24 13:14
XZ-Gircbs-Sfhwerfkgv Assessment Last Done: 07/25/24 07:45
Discharge Date and Time
Discharge Date/Time: 07/25/24 13:45
[2024-07-25] MEDS: ZOFRAN 4 MG IV ×2 (08:19→22:27)
[2024-07-25] MEDS: NSS 1000 IV ×3 (08:19→22:26)
[2024-07-25] MEDS: DILAUDID 0.5 MG IV ×5 (08:19→22:26)
[2024-07-25 08:48] LABS: Hematocrit 40.7 % (37.0-47.0); Hemoglobin 13.9 g/dL (12.0-16.0); Mean Corp Hgb Conc. 34.2 g/dL (33.0-37.0); Mean Corpuscular Volume 93.6 fL (81.0-99.0); Mean Platelet Volume 9.6 fL (7.4-10.4); Platelet Count 215 10^3/uL (130-400); Red Blood Cell Count 4.35 10^6/uL (4.20-5.40); Red Cell Dist. Width 13.1 % (11.5-14.5); White Blood Cell Count 7.6 10^3/uL (4.8-10.8)
[2024-07-25 09:04] LABS: Urine Albumin Negative (Neg - Trace); Urine Bilirubin Negative (Negative); Urine Character Clear (Clear); Urine Color Yellow; Urine Glucose Negative (Negative); Urine Ketone Negative (Negative); Urine Leukocyte 1+ (Negative); Urine Nitrite Negative (Negative); Urine Occult Blood 1+ (Negative); Urine Urobilinogen Negative (Neg - 1+)
[2024-07-25 09:16] LABS: ALT (SGPT) 26 U/L (0-35); AST (SGOT) 20 U/L (14-36); Albumin 4.1 g/dl (3.5-5.0); Alkaline Phosphatase 72 U/L (38-126); Blood Urea Nitrogen 23 mg/dl (7-17); Calcium 9.4 mg/dl (8.4-10.2); Carbon Dioxide 28 mmol/L (22-30); Chloride 107 mmol/L (98-107); Estimated Creatinine Clearance 93 ml/min; Glucose 107 mg/dl (70-99); Lipase 123 U/L (23-300); Potassium 4.2 mmol/L (3.5-5.1); Sodium 141 mmol/L (135-145); Total Bilirubin 0.6 mg/dl (0.2-1.3); Total Protein 6.1 g/dl (6.3-8.2); eGFR > 60.00
[2024-07-25 09:19] LABS: % Basophils 0.7 % (0-2); % Eosinophils 1.2 % (0-6); % Immature Granulocytes 0.3 % (0-0.5); % Lymphocytes 66.4 % (20.5-51.1); % Monocytes 3.2 % (1.7-9.3); % Neutrophils 28.2 % (42.2-75.2); Absolute Basophils 0.1 10^3/uL (0-0.2); Absolute Eosinophils 0.1 10^3/uL (0-0.7); Absolute Monocytes 0.2 10^3/uL (0.1-0.6); Absolute Neutrophils 2.2 10^3/uL (1.4-6.5); Nucleated Red Blood Cells % 0 %
[2024-07-25 09:29] LABS: Urine Squamous Cell >30 /LPF (Few)
[2024-07-25 09:30] LABS: Urine Amorphous Seen; Urine Urothelial Cell 16-20 /LPF (FEW)
[2024-07-25 09:32] LABS: Urine Red Blood Cell 0-2 /HPF (0-2)
[2024-07-25] MEDS: TORADOL 30 MG IV (11:23)
--- NOTE | 2024-07-25 12:39 | HPS.HSE ---
Family Physician
-
Family Physician: Maria Isabel Bruce
Chief Complaint
-
abdominal pain
History of Present Illness
63-year-old female past medical history of cervical cancer status post prior hysterectomy, multiple surgeries for lysis of adhesions most recently in 2018, history of SBO, CLL, GERD, anxiety/panic disorder, presenting with abdominal pain similar to
prior small bowel obstruction which started this morning. She went up to go to the bathroom and started feeling generalized discomfort in her abdomen. Was unable to have a bowel movement apart from a little bit in the morning. She has nausea and
dry heaving since then. She feels like she cannot pass gas. No fevers or chills.
She smokes marijuana. She drinks alcohol occasionally. Does not smoke cigarettes.
Medical History
Past Medical History
Past Medical History: Reports Other (cervical cancer status post prior hysterectomy, multiple surgeries for lysis of adhesions most recently in 2018, history of SBO, CLL, GERD, anxiety/panic disorder)
Past Surgical History: Reports Other (Gynecological (Hysterectomy) and Other (lymph node disectioin)
Social History
Tobacco: Non-smoker
Alcohol: None
Drug: Marijuana
Family History
Family History: Not pertinent
Allergies / Home Medications
Allergies reflects when Allergies were last updated in [facility].
Home Medications with original date entered in [facility]
Allergy/Medication List:
Allergies
Allergy/AdvReac Type Severity Reaction Status Date / Time
Sulfa (Sulfonamide Allergy Unknown Verified 07/25/24 07:29
Antibiotics)
Home Medications
cholecalciferol (vitamin D3) 25 mcg (1,000 unit) tablet (Vitamin D3) 25 mcg PO DAILY Supplement 01/28/23
fluoxetine 10 mg capsule (Prozac) 10 mg PO DAILY depression/anxiety 06/04/23
cyanocobalamin (vitamin B-12) 1,000 mcg tablet 1,000 mcg PO DAILY Supplement 11/19/23
alprazolam 0.5 mg tablet 0.5 mg PO TIDPRN PRN anxiety 02/27/24
Review of Systems
-
History Source: Patient
A 12 point ROS was completed and negative except as noted: Yes
Constitutional: Reports No Symptoms
EENT: Reports No Symptoms
Respiratory: Reports No Symptoms
Cardiac: Reports No Symptoms
Abdomen/GI: Reports See HPI
: Reports No Symptoms
Musculoskeletal: Reports No Symptoms
Skin: Reports No Symptoms
Neurological: Reports No Symptoms
Endocrine: Reports No Symptoms
Hematologic/Lymphatic: Reports No Symptoms
Psych: Reports No Symptoms
Physical Exam
Vital Signs
Vital Signs
Temp Pulse Resp BP Pulse Ox
98 F 69 16 118/69 99
07/25/24 10:00 07/25/24 12:00 07/25/24 12:00 07/25/24 12:00 07/25/24 12:00
Physical Exam
General: Well Developed, Well Nourished and No Apparent Distress
HEENT: NormoCephalic, Moist mucous membranes and Atraumatic
Respiratory: Clear
Cardiac: S1/S2 and Regular Rhythm; No Murmur or Rub
GI: Soft, Non Tender, Normal Bowel Sounds and Tender (diffusely ); No Organomegaly
Rectal: Deferred by Provider
Musculoskeletal: No Clubbing, No Cyanosis and No Edema
Skin: No Rash
Neuro: Nonfocal/grossly intact
Laboratory Results
-
07/25/24 08:20
07/25/24 08:20
Laboratory Results
Total Bilirubin 0.6 mg/dl (0.2-1.3) 07/25/24 08:20
AST 20 U/L (14-36) 07/25/24 08:20
ALT 26 U/L (0-35) 07/25/24 08:20
Alkaline Phosphatase 72 U/L (38-126) 07/25/24 08:20
Lipase 123 U/L (23-300) 07/25/24 08:20
Data Reviewed
-
Lab Data: Labs Reviewed by me
Old Records: Reviewed
Impression/Plan
-
IMPRESSION:
PLAN:
# Recurrent small bowel obstruction
# History of prior hysterectomy for cervical cancer status post multiple surgeries for debulking and lysis of adhesions most recently 2017
-CT abdomen pelvis shows small bowel obstruction
- N.p.o.
- IV fluids
- Zofran, Dilaudid
- General Surgery consulted
Cervical cancer status post laparoscopic hysterectomy in April 2012
History of CLL diagnosed 2006
- Being followed by Dr. Rubio
Anxiety/panic disorder
- Continue alprazolam, fluoxetine, when able
GERD
Former smoker
Medical marijuana use
Insomnia
Full code
DVT prophylaxis�heparin
N.p.o.
--- NOTE | 2024-07-25 13:21 | CON.GS ---
Addendum entered and electronically signed by Anjum Black MD 07/26/24 10:39:
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 Agree with documented consultation note consistent with my concurrent evaluation.
This is a delayed entry.
HPI: 63-year-old female well-known to myself due to history of recurrent partial small bowel obstructions. We have been following these expectantly. Recent outpatient small bowel follow-through study was unremarkable showing no signs of chronic
partial obstruction between episodes.
She was in her usual baseline state of health until this a.m. when she began developing nausea and colicky abdominal pain followed by vomiting. She reports no dietary indiscretion. Only recent changes that she has not been taking MiraLAX as
frequently but also has not had significant constipation. She thinks this may be stress related as her had a cardiac procedure scheduled for today which she brought him to and then went to the emergency department.
Feeling better at this time of evaluation. Has passed intermittent flatus. No nausea and no significant active abdominal pain.
AFVSS
NAD AAO x 3
ABD: Soft, not distended or significantly tympanitic. Mild tenderness palpation lower midline and left lower quadrant. No rebound or guarding.
CT abdomen/pelvis. No significant gastric distention. Proximal small bowel loops generally normal caliber. Central small bowel with feces sign and transition point similar to previous CT imaging. Distal small bowel decompression.
Assessment/plan: 63-year-old female presenting with recurrent partial small bowel obstruction
Clinically improving
No indications for urgent surgical intervention
N.p.o., IV fluids and supportive care
Will follow
Original Note:
Consultation
-
Date/Time Consultation Performed: 07/25/24 1320
Requesting Provider: Vance
Performing Provider: Lucian Black
Reason for Consultation: recurrent SBO
Medical History
-
Chief Complaint: Abd pain
History of Present Illness:
63 with a h/o CLL, cervical cancer s/p hysterectomy and ex lap for debulking in 2012, SBO's with ex lap for JO x2 (most recent was in 2017), and multiple SBO's last admitted at 01/2023, 05/2023, 11/2023 and 02/2024 with recent endo/colo in April
with benign polyps who presents with acute onset of nausea, vomiting and abdominal pain near the umbilicus which began early this morning. Between admissions, she notes that she generally does quite well and does follow a low residue diet. She was
in her normal state of health when she awakened this am and developed nausea and vomiting with pain. She was able to pass some flatus and a small amount of stool but discomfort has persisted although not as severe. She has passed flatus once or
twice since presentation. She reports a good deal of retching but not much emesis. She has been belching but currently denies active nausea. She denies fevers or chills. She denies hematemesis or hematochezia.
Past Medical History
Past Medical History: Cancer (CLL Dx 2006, stage IVB cervical cancer tx surgically and with XRT/Chemo), GERD, Psychiatric (anxiety) and Other (multiple sbo with last admission February 2024, cervical radiculopathy)
Past Surgical History: Gynecological (Lap hysterectomy followed by ex lap for debulking and LND 2012) and Other (Ex-lap JO x2 (most recent was 2017), Colonoscopy/Small bowel enteroscopy 04/2024 )
Social History
Tobacco: Former Smoker
Alcohol: Occasional
Drug: Marijuana (medical )
Personal:
Living: With Family
Family History
Family History: Reviewed & Noncontributory and Cancer (mother: breast)
Allergies / Home Medications
Allergy/AdvReac Type Severity Reaction Status Date / Time
Sulfa (Sulfonamide Allergy Unknown Verified 07/25/24 07:29
Antibiotics)
�Medication �Instructions �Recorded �Confirmed �Type
cholecalciferol (vitamin D3) 25 25 mcg PO DAILY Supplement 01/28/23 07/25/24 History
mcg (1,000 unit) tablet (Vitamin
D3)
fluoxetine 10 mg capsule (Prozac) 10 mg PO DAILY depression/anxiety 06/04/23 07/25/24 History
cyanocobalamin (vitamin B-12) 1,000 mcg PO DAILY Supplement 11/19/23 07/25/24 History
1,000 mcg tablet
alprazolam 0.5 mg tablet 0.5 mg PO TIDPRN PRN anxiety 02/27/24 07/25/24 History
Review of Systems
-
History Source: Patient and Family
All other systems: Negative unless noted
A 10 point review of systems was completed, and was negative except as per HPI.
Physical Exam
Vital Signs
Temp Pulse Resp BP Pulse Ox
98 F 69 16 118/69 99
07/25/24 10:00 07/25/24 12:00 07/25/24 12:00 07/25/24 12:00 07/25/24 12:00
07/24/24 07/25/24 07/26/24
06:59 06:59 06:59
Actual Weight 87.1 kg
Body Mass Index (BMI) 29.2
Lab Results
07/25/24 08:20
07/25/24 08:20
WBC 7.6 10^3/uL (4.8-10.8) 07/25/24 08:20
Hgb 13.9 g/dL (12.0-16.0) 07/25/24 08:20
Hct 40.7 % (37.0-47.0) 07/25/24 08:20
Plt Count 215 10^3/uL (130-400) 07/25/24 08:20
Abs Immat Gran (auto) 0.0 10^3/uL (0-0.05) 07/25/24 08:20
Neutrophils % 28.2 % (42.2-75.2) L 07/25/24 08:20
Physical Exam
General: Well Developed, Well Nourished and Comfortable
HEENT: Normocephalic and Moist Mucous Membranes
Respiratory: Non Labored Respirations
GI: Soft, Tender (mild to the right of the umbilicus) and Distended (mild)
Skin: Warm and Dry
Neuro: Awake, Alert and AO x 3
Psych: Calm
Data Reviewed
-
CT Scan: Image Personally Visualized and interpreted, Report Reviewed by me, Discussed with Physician and Discussed with Patient
Labs: Labs Reviewed by me, Discussed with Physician and Discussed with Patient
Old Records: Reviewed
Assessment / Plan
-
63 with a h/o CLL, cervical cancer s/p hysterectomy and ex lap for debulking in 2012, SBO's with ex lap for JO x2 (most recent was in 2017), and multiple SBO's last admitted at 01/2023, 05/2023, 11/2023 and 02/2024 which resolved with nonoperative
management who presents with acute onset of nausea, vomiting and abdominal pain near the umbilicus which began early this morning.
CT imaging w/o PO contrast reviewed with likely adhesive partial SBO. Transition point suspected near the proximal ileum. No evidence of bowel threat or compromise. No pneumatosis or free air. Labs without leukocytosis. Afebrile, VSS.
Plan:
--NPO for bowel rest, ok for PO meds
--IVF until tolerating PO
--Analgesics/antiemetics prn
--Medical management as per primary team
Will follow
--- NOTE | 2024-07-25 15:50 | CM ---
CM reviewed chart and met with pt bedside in rm 327. Pt lives with , multistory home, [address], 1st floor BA.
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
PCP: Maria Isabel Bruce
Pharmacy: [facility] [address], [place]
Plan: Anticipate home, watch for needs
[2024-07-25] MEDS: HEPARIN 5000 UNITS SC (20:14)
[2024-07-26] MEDS: DILAUDID 0.5 MG IV (03:03)
[2024-07-26 06:49] LABS: Hematocrit 36.7 % (37.0-47.0); Mean Corp Hgb Conc. 32.7 g/dL (33.0-37.0); Mean Corpuscular Hgb 30.8 pg (27.0-31.0); Mean Corpuscular Volume 94.1 fL (81.0-99.0); Mean Platelet Volume 9.9 fL (7.4-10.4); Platelet Count 168 10^3/uL (130-400); Red Cell Dist. Width 13.2 % (11.5-14.5); White Blood Cell Count 5.6 10^3/uL (4.8-10.8)
[2024-07-26 06:54] LABS: ALT (SGPT) 19 U/L (0-35); AST (SGOT) 16 U/L (14-36); Alkaline Phosphatase 65 U/L (38-126); Blood Urea Nitrogen 15 mg/dl (7-17); Calcium 8.2 mg/dl (8.4-10.2); Carbon Dioxide 24 mmol/L (22-30); Chloride 112 mmol/L (98-107); Estimated Creatinine Clearance 84 ml/min; Glucose 75 mg/dl (70-99); Sodium 140 mmol/L (135-145); Total Bilirubin 0.4 mg/dl (0.2-1.3); Total Protein 4.8 g/dl (6.3-8.2); eGFR > 60.00
[2024-07-26 08:06] VITALS: BP 92/48
[2024-07-26] MEDS: NSS 1000 IV (09:03)
[2024-07-26] MEDS: HEPARIN 5000 UNITS SC (09:13)
[2024-07-26 10:20] LABS: % Basophils 0.4 % (0-2); % Eosinophils 1.3 % (0-6); % Immature Granulocytes 0.2 % (0-0.5); % Lymphocytes 58.6 % (20.5-51.1); % Monocytes 3.9 % (1.7-9.3); % Neutrophils 35.6 % (42.2-75.2); Absolute Eosinophils 0.1 10^3/uL (0-0.7); Absolute Lymphocytes 3.3 10^3/uL (1.2-3.4); Absolute Monocytes 0.2 10^3/uL (0.1-0.6); Nucleated Red Blood Cells % 0 %
--- NOTE | 2024-07-26 10:39 | W.PN.GS2 ---
Today's Communication / Plan
-
`
Assessment / Plan
-
Assessment: 63-year-old female with recurrent probable low-grade partial small bowel obstruction likely adhesive related given her extensive prior abdominal surgical history.
AFVSS
Clinically resolving.
Plan: Full liquid diet
MiraLAX x 1
Okay with discharge from surgical standpoint this afternoon if tolerates liquid p.o. challenge without return of obstructive symptoms. Patient very familiar with managing her partial small bowel obstructions and can progress diet at home if doing
well with full liquid intake.
Subjective Data
-
Date of Service: July 26, 2024
Patient seen and examined this a.m.
Feeling much better. Denies significant abdominal pain just slight discomfort.
No nausea, appetite returning.
Passing flatus. No bowel movement
Feels like obstructive symptoms are resolving
Objective Data
-
Intake and Output
07/25/24 07/26/24 07/27/24
06:59 06:59 06:59
Intake Total 1320 / 1320
Balance 1320 / 1320
Intake:
Oral fluids 120 / 120
IV piggybacks 1200 / 1200
Other:
Number of approximated MODERATE 2
amounts of urine
Vital Signs
Temp Pulse Resp BP Pulse Ox
97.3 F 52 16 92/48 97
07/26/24 08:06 07/26/24 08:06 07/26/24 08:06 07/26/24 08:06 07/26/24 08:06
Lab Results
07/26/24 05:50
07/26/24 05:50
Calcium 8.2 mg/dl (8.4-10.2) L 07/26/24 05:50
Total Bilirubin 0.4 mg/dl (0.2-1.3) 07/26/24 05:50
AST 16 U/L (14-36) 07/26/24 05:50
ALT 19 U/L (0-35) 07/26/24 05:50
Alkaline Phosphatase 65 U/L (38-126) 07/26/24 05:50
Total Protein 4.8 g/dl (6.3-8.2) L D 07/26/24 05:50
Albumin 3.0 g/dl (3.5-5.0) L 07/26/24 05:50
Physical Exam
-
NAD, AAO x 3 resting comfortably in hospital bed
ABD: Soft, nondistended, no significant tenderness on palpation.
[2024-07-26] MEDS: MIRALAX 17 GRAMS PO (11:05)
[2024-07-26 11:31] VITALS: BP 101/35
--- NOTE | 2024-07-26 14:27 | W.PN.HOSP.TC ---
Today's Communication/Plan
-
possible discharge later today if tolerated liquid lunch
Assessment / Plan
Assessment / Plan
# Recurrent small bowel obstruction
# History of prior hysterectomy for cervical cancer status post multiple surgeries for debulking and lysis of adhesions most recently 2017
-CT abdomen pelvis shows small bowel obstruction
-General Surgery evaluated and patient cleared to be started on liqui diet
-As patient have episode of recurrent SBO, feels comfortable advancing diet at home. General surgery is okay with this. If patient able to tolerate liquid diet will be discharged home
Cervical cancer status post laparoscopic hysterectomy in April 2012
History of CLL diagnosed 2006 - Being followed by Dr. Rubio
Anxiety/panic disorder - Continue alprazolam, fluoxetine, when able
GERD
Former smoker
Medical marijuana use
Insomnia
Full code
DVT prophylaxis�heparin
Anticipated Discharge: Within 24 hours
Subjective/Interval History
-
Date of Service: July 26, 2024
Able to pass some gas
No significant abdominal pain/nausea/vomiting
No other acute events reported
Objective Data
-
Labs:
Laboratory Results
07/26/24
05:50
WBC 5.6
Hgb 12.0
Hct 36.7 L
Plt Count 168 D
Sodium 140
Potassium 4.0
Chloride 112 H
Carbon Dioxide 24
BUN 15
Creatinine 0.7
Glucose 75
Calcium 8.2 L
Total Bilirubin 0.4
AST 16
ALT 19
Alkaline Phosphatase 65
Vital Signs:
Vital Signs
Temp Pulse Resp BP Pulse Ox
97.3 F 52 16 101/35 97
07/26/24 08:06 07/26/24 08:06 07/26/24 08:06 07/26/24 11:31 07/26/24 08:06
I&O
07/25/24 07/26/24 07/27/24
06:59 06:59 06:59
Intake Total 1320 / 1320
Balance 1320 / 1320
Review of Systems
-
Respiratory: Reports No Symptoms
Cardiac: Reports No Symptoms
Abdomen/GI: Reports No Symptoms
Physical Exam
-
General: Negative Cachectic
HEENT: Negative Oxygen
GI: Soft and Nontender; Negative Normal Bowel Sounds (Decreased bowel sounds)
Neuro: Awake, Alert, Oriented and No Motor Deficits
--- NOTE | 2024-07-26 16:09 | CM ---
MD entered order for discharge.
Spoke with pt she tolerated her lunch and she said she is ready for discharge today.
Her Boy will drive her home.
PLAN Home no needs
--- NOTE | 2024-07-26 16:32 | W.DCSUMMARY ---
Discharge Summary
Discharge Data
Date of Admission: 07/25/24
Date of Discharge: 07/26/24
-
Pending Results: No
Hospital Course
Discharging Physician : Dr Harley Berg
Disposition : To home
Primary care physician : Dr Maria Isabel Bruce
Principal Discharge diagnosis :
Small bowel obstruction/ileus
Chronic Discharge diagnosis :
History of hysterectomy for cervical cancer
History of recurrent bowel obstruction
History of lysis of adhesion
History of chronic lymphocytic leukemia
Generalized anxiety disorder
Gastroesophageal reflux disorder
Former smoker
History of medical marijuana use
Hospital Course :
Patient is a 63-year-old female with mentioned past medical history came to ER for having new onset of abdominal pain and some distention. Patient has history of recurrent small bowel obstruction and was concerned about having a repeat episode. In
ER patient had CT abdomen pelvis which showed possible developing small bowel obstruction. General surgery was evaluated in care and patient was managed conservatively. Patient did recovery of bowel function within 24 hours and was started on
trial of clear liquid diet. Patient was able to tolerate diet without any problems. As patient felt confident advancing diet slowly at home General Surgery recommended for patient to be discharged home with follow-up in the office.
Important imaging findings :
None
Procedure findings :
None
Discharge Plan
-
Patient Disposition: Home (Routine Discharge)
Discharge Diagnosis/Procedures: SBO
Condition: Fair
Diet: Low Fiber
Additional Diets: slowly advance back to low fiber diet
Activity: As tolerated
Driving Restrictions: As prior to admission
Bathing Restrictions: OK to Shower
Referrals:
Maria Isabel Bruce MD [Family Provider, Family Practice] - in one week
Anjum Black MD [Active, Surgical] - As needed
Prescriptions:
Continued
cholecalciferol (vitamin D3) [Vitamin D3] 25 mcg (1,000 unit) Tablet
25 mcg PO DAILY
fluoxetine [Prozac] 10 mg Capsule
10 mg PO DAILY
cyanocobalamin (vitamin B-12) 1,000 mcg Tablet
1,000 mcg PO DAILY
alprazolam 0.5 mg Tablet
0.5 mg PO TIDPRN PRN (Reason: anxiety)
Patient Comments:
02/27/24: last filled 02/04/24 for 45 tablets over 15 days
Discharge Orders:
Discharge Patient (As Directed); Ordered 07/26/24
Ordered By: Harley Berg
Discharge Date and Time
Discharge Date/Time: 07/26/24 16:39
Print Language: TONGAN
== END 2024-07-26 16:39 | disposition home or self-care (01) | DRG 390 ==
LOC: 3 WEST ACU 13:03
PROVIDERS: Physician Assistant; ADMITTING PHYSICIAN Hospitalist; ATTENDING PHYSICIAN Hospitalist; CONSULT PHYSICIAN Surgery; EMERGENCY PHYSICIAN Emergency Medicine; FAMILY PHYSICIAN Family Medicine
DX: K56.600 Partial intestinal obstruction, unspecified as to cause (principal); Z85.41 Personal history of malignant neoplasm of cervix uteri; Z85.6 Personal history of leukemia; K21.9 Gastro-esophageal reflux disease without esophagitis; Z87.891 Personal history of nicotine dependence; F41.0 Panic disorder [episodic paroxysmal anxiety]; G47.00 Insomnia, unspecified; Z80.3 Family history of malignant neoplasm of breast; Z88.2 Allergy status to sulfonamides; Z90.710 Acquired absence of both cervix and uterus
CPT/HCPCS: 74177; 80053; 81003; 81015; 83690; 85025; 87086; 96361; 96374; 96375; 96376; 99284; Q9967

== ENCOUNTER 2024-08-12 21:21 | Inpatient (IN) | payer MEDICARE, OTHER, SELFPAY ==
[2024-08-12 18:16] VITALS: BP 144/96
[2024-08-12 18:37] VITALS: BP 160/98
--- NOTE | 2024-08-12 18:40 | ED.GENMED ---
History of Present Illness
General
Chief Complaint: Bowel Problem
Source: patient and records
Exam Limitations: none
Time Seen by Provider: 08/12/24 18:32
History of Present Illness
History of Present Illness:
63yoF with a history of cervical cancer s/p hysterectomy and recurrent bowel obstructions presenting with her for evaluation of abdominal pain. She started with abdominal pain earlier today and thought she may have eaten something that made
her stomach upset. The pain has been constant and gradually worsening. She is now having nausea and dry heaving. She had 3 bowel movements today but has not passed flatus since around noon. Symptoms feel identical to her prior bowel
obstructions. Of note, patient was admitted about 2 weeks ago for a bowel obstruction that was managed conservatively.
Past History
Past History
ED Past Medical History: Cancer (cervical cancer), GERD, Psychiatric (Anxiety, Panic disorder) and Other (Bowel obstruction, Adhesions)
ED Past Surgical History: Gynecological (Hysterectomy) and Other (lymph node disectioin. )
Social History
Tobacco: Non-smoker
Alcohol: Occasional
Drug: Marijuana
Personal:
Living: with family
Phy Exam
Physical Exam
Physical Exam:
Moaning in pain, dry heaving
General Physical Exam
General Presentation: moderate distress
General Skin: warm and dry
General Habitus: normal
ENT Exam
ENT Exam: normocephalic
Cardiovascular Exam
Cardiovascular Exam: regular rate/rhythm
Pulmonary Exam
Pulmonary Exam: no respiratory distress
Gastrointestinal Exam
Gastrointestinal Exam: soft, non distended and other (+Generalized abdominal tenderness. No rebound or guarding.)
Neurological Exam
Neurological Exam: alert
[place] Coma Scale
Eye Opening: Spontaneous
Verbal Response: Oriented
Motor Response: Obeys Commands
GCS Total Score: 15
Skin Exam
Skin Exam: normal color and warm/dry
Psychiatric Exam
Psychiatric Exam: normal mood/affect
Course
Orders/Labs/Results
Orders:
Orders
08/12/24 Dinner
NPO
Allow oral meds: Yes
Allow clear liquids: No
NPO with Ice Chips: Yes
08/12/24 18:38
CT Abd/pelvis W Iv Cont Urgent
Reason For Exam: abd pain, vomiting, hx of SBO
0.9% Sodium Chloride 1000 ml [Nss] 1,000 ml IV BOLUS
HYDROmorphone [Dilaudid] 1 mg IV NOW STA
Iohexol [Omnipaque] See Protocol PO NOW STA
Ondansetron Injectable [Zofran] 4 mg IV NOW STA
08/12/24 18:50
Complete Blood Count/With Diff Urgent
Comprehensive Metabolic Panel Urgent
Lactate Level [Lactic Acid] Urgent
Lipase Urgent
08/12/24 20:41
HYDROmorphone [Dilaudid] 1 mg IV NOW STA
08/12/24 20:45
Ondansetron Injectable [Zofran] 4 mg IV NOW STA
08/12/24 21:08
Admit/Transfer Patient As Directed
Co-Sign Provider:
Level of Care: Inpatient admission
Assign to:: Medical/Surgical
Physician / Group: Delaney Isidro
Diagnosis: recurrent small bowel obstruction
Reason for Hospitalization: recurrent small bowel obstruction
Expected length of stay greater than two midnights?: Yes
ELOS- Estimated Length of Stay in days: 2
I certify the patient meets the requirements for IP care: Yes
PRN Pain Medication Management As Directed
May give lesser potent ordered pain med per pt: Yes
preference::
Protocol:: Medication orders for pain may be administered in a
manner that supports deferring to patient preference
when the pt is:
- Requesting an ordered lesser potent pain medication.
Least to most potent pain medications are defined
as: acetaminophen < NSAID < tramadol < opioids
(morphine, oxycodone, hydromorphone).
- Requesting a lesser dose of the same medication IF
ORDERED.
- Requesting a less intrusive route of administration
if both routes are prescribed by the provider (PO <
IV).
08/12/24 21:09
Code Status As Directed
Resuscitation Status: Full Code
08/12/24 22:00
0.9% Sodium Chloride 1000 ml [Nss] 1,000 ml IV 100 mls/hr
HYDROmorphone [Dilaudid] 0.5 mg IV Q4HPRN PRN
Ondansetron Injectable [Zofran] 4 mg IV Q6HPRN PRN
08/12/24 22:00
Activity As Directed
Activity Level: As Tolerated
Intake/ Output As Directed
Frequency: Per unit guidelines
Vital Signs As Directed
Frequency: Per unit guidelines
Weight As Directed
Frequency: Once
Comment: on admission
DX Deep Vein Thrombosis Video Routine
08/13/24 06:00
Basic Metabolic Panel IN AM
08/13/24 18:00
Enoxaparin Sodium [Lovenox] 40 mg SC QPM
Abnormal Lab Results
08/12/24
18:50
MCH 31.9 H pg
(27.0-31.0)
Absolute Lymphs (auto) 4.2 H 10^3/uL
(1.2-3.4)
Chloride 110 H mmol/L
(98-107)
Glucose 108 H mg/dl
(70-99)
08/12/24 18:50
08/12/24 18:50
Vital Signs
Initial and Last Documented VS:
Initial Vital Signs
Temp Pulse Resp BP Pulse Ox
97.8 F 89 16 144/96 99
08/12/24 18:16 08/12/24 18:16 08/12/24 18:16 08/12/24 18:16 08/12/24 18:16
Last Documented Vital Signs
Temp Pulse Resp BP Pulse Ox
97.4 F 62 18 109/64 99
08/12/24 23:58 08/12/24 23:58 08/12/24 23:58 08/12/24 23:58 08/12/24 23:58
MDM/Problems Addressed
Differential Diagnosis Includes:
63yoF here with abd pain and vomiting that began today. Hx of SBO and this feels the same. VSS. She is moaning in pain and dry heaving. No signs of peritonitis on abdominal exam. Differential diagnosis includes but is not limited to: SBO,
gastroenteritis, constipation
Initial ED plan: Check abdominal labs, lactate, and CT abdomen. IV Zofran, Dilaudid, and fluid bolus for symptoms.
*Pulse Oximetry
SaO2: 99
Oxygen Mode of Delivery: Room air
Patient hypoxic: no (99%)
*Critical Care Note
Total Time (30-74mins, 75-104mins- exclusive of procedures): Not Applicable
Update Note
Update Note:
CT originally ordered with PO contrast but patient refused. CT shows evidence of developing SBO. White count and lactate normal. She has not had any vomiting here and stomach does not look distended on CT so will hold off on NG tube. Patient
admitted for further management.
ED Attending Note
-
Portions of this chart may have been created with voice recognition software.� Occasional wrong word or��sound alike� substitutions may have occurred due to the inherent limitations of voice recognition software.
Discharge Plan
Departure
Patient Disposition: Admit
Date of Disposition: 08/12/24
Time of Disposition: 20:47
Presentation/result/management discussed w/ accepting MD/DO: Hospitalist
Discharge Problem:
Small bowel obstruction
Interventions
Interventions:
*Risk Screen - Suicide Last Done: 08/12/24 23:14
*General Assessment Last Done: 08/12/24 22:08
*Neglect/Abuse Screening Last Done: 08/12/24 18:18
*ED- Fall Risk Assessment Last Done: 08/12/24 22:08
*ED COVID-19 Vaccine History Last Done: 08/12/24 23:14
*Nursing Disposition Last Done: 08/12/24 22:07
FQ-Ipusvd-Ahxkrghney Assessment Last Done: 08/12/24 19:28
[2024-08-12 18:57] VITALS: BMI 25.9
[2024-08-12] MEDS: DILAUDID 1 MG IV ×2 (19:05→20:55)
[2024-08-12] MEDS: ZOFRAN 4 MG IV ×2 (19:06→20:54)
[2024-08-12 19:22] LABS: Hematocrit 44.6 % (37.0-47.0); Hemoglobin 15.7 g/dL (12.0-16.0); Mean Corp Hgb Conc. 35.2 g/dL (33.0-37.0); Mean Corpuscular Volume 90.7 fL (81.0-99.0); Nucleated Red Blood Cells % 0 %; Platelet Count 230 10^3/uL (130-400); Red Cell Dist. Width 13.2 % (11.5-14.5)
[2024-08-12] MEDS: NSS 1000 IV ×2 (19:41→22:32)
[2024-08-12 19:49] LABS: ALT (SGPT) 21 U/L (0-35); AST (SGOT) 19 U/L (14-36); Albumin 4.5 g/dl (3.5-5.0); Alkaline Phosphatase 88 U/L (38-126); Blood Urea Nitrogen 16 mg/dl (7-17); Calcium 9.8 mg/dl (8.4-10.2); Carbon Dioxide 22 mmol/L (22-30); Chloride 110 mmol/L (98-107); Estimated Creatinine Clearance 84 ml/min; Glucose 108 mg/dl (70-99); Lipase 58 U/L (23-300); Potassium 3.9 mmol/L (3.5-5.1); Sodium 139 mmol/L (135-145); Total Protein 6.4 g/dl (6.3-8.2); eGFR > 60.00
[2024-08-12 20:00] VITALS: BP 112/67
--- NOTE | 2024-08-12 20:50 | HPS.HSE ---
Family Physician
-
Family Physician: Maria Isabel Bruce
Chief Complaint
-
abdominal pain
History of Present Illness
Patient is a 63-year-old female with past medical history significant for history of small bowel obstruction, CLL, GERD and anxiety/panic disorder who presented to [facility] ED for evaluation of abdominal pain. Patient reports acute onset of abdominal
pain earlier today that gradually got worse as the day when on. She then started with nausea and vomiting. She does report 3 bowel movements today and denies diarrhea. She does not recall passing any faltus since lunchtime. Denies any fever, chills,
cough, shortness of breath, chest pain or urinary symptoms.
Medical History
Past Medical History
Past Medical History: Reports Other
Additional Past Medical History:
history of small bowel obstruction
CLL
GERD
anxiety/panic disorder
Hx cervical cancer
Past Surgical History: Reports Other
Additional Past Surgical History:
cervical cancer status post prior hysterectomy
multiple surgeries for lysis of adhesions most recently in 2018
Social History
Tobacco: Non-smoker
Alcohol: Occasional
Drug: Marijuana (daily )
Personal:
Living: With Family
Family History
Family History: Not pertinent
Allergies / Home Medications
Allergies reflects when Allergies were last updated in [employer].
Home Medications with original date entered in [employer]
Allergy/Medication List:
Allergies
Allergy/AdvReac Type Severity Reaction Status Date / Time
Sulfa (Sulfonamide Allergy Unknown Verified 07/25/24 07:29
Antibiotics)
Home Medications
fluoxetine 10 mg capsule (Prozac) 10 mg PO DAILY depression/anxiety 06/04/23
cyanocobalamin (vitamin B-12) 1,000 mcg tablet 1,000 mcg PO DAILY Supplement 11/19/23
alprazolam 0.5 mg tablet 0.5 mg PO TIDPRN PRN anxiety 02/27/24
cholecalciferol (vitamin D3) 50 mcg (2,000 unit) chewable tablet 50 mcg PO DAILY 08/12/24
diphenhydramine HCl 25 mg capsule (Benadryl) 25 mg PO ONCE PRN antihistamine 08/12/24
polyethylene glycol 3350 17 gram oral powder packet (Miralax) 17 g PO Q48H 08/12/24
Review of Systems
-
History Source: Patient
A 12 point ROS was completed and negative except as noted: Yes
Constitutional: Reports No Symptoms
EENT: Reports No Symptoms
Respiratory: Reports No Symptoms
Cardiac: Reports No Symptoms
Abdomen/GI: Reports Abdominal Pain, Nausea and Vomiting
: Reports No Symptoms
Musculoskeletal: Reports No Symptoms
Skin: Reports No Symptoms
Neurological: Reports No Symptoms
Endocrine: Reports No Symptoms
Hematologic/Lymphatic: Reports No Symptoms
Psych: Reports No Symptoms
Physical Exam
Vital Signs
Vital Signs
Temp Pulse Resp BP Pulse Ox
97.8 F 72 18 160/98 99
08/12/24 18:16 08/12/24 18:45 08/12/24 18:45 08/12/24 18:37 08/12/24 18:45
Physical Exam
General: Well Developed, Well Nourished and No Apparent Distress
HEENT: NormoCephalic, Moist mucous membranes, Atraumatic, Nose Appears Normal and Ears Appear Normal
Respiratory: Clear
Cardiac: S1/S2 and Regular Rhythm
GI: Soft, Non Tender, Normal Bowel Sounds and Tender (diffusely )
Rectal: Deferred by Provider
Genito-urinary: Deferred by me
Musculoskeletal: No Clubbing, No Cyanosis and No Edema
Neuro: Awake, Alert, AO x 3 and Nonfocal/grossly intact
Psych: Calm and Intact Judgment/Insight
Laboratory Results
-
08/12/24 18:50
08/12/24 18:50
Laboratory Results
Lactic Acid 1.3 mmol/L (0.7-2.0) 08/12/24 18:50
Total Bilirubin 0.7 mg/dl (0.2-1.3) 08/12/24 18:50
AST 19 U/L (14-36) 08/12/24 18:50
ALT 21 U/L (0-35) 08/12/24 18:50
Alkaline Phosphatase 88 U/L (38-126) 08/12/24 18:50
Lipase 58 U/L (23-300) 08/12/24 18:50
Data Reviewed
-
CT Scan: Report Reviewed by me (Abd/Pel: CT findings most suspicious for a developing small bowel obstruction. The transition point is located in the lower abdomen/pelvis where there is a 6 cm in length segment of small bowel wall thickening
suggestive of an enteritis.)
Lab Data: Labs Reviewed by me
Impression/Plan
-
IMPRESSION/PLAN:
#recurrent small bowel obstruction
Abd/Pel CT: CT findings most suspicious for a developing small bowel obstruction. The transition point is located in the lower abdomen/pelvis where there is a 6 cm in length segment of small bowel wall
thickening suggestive of an enteritis.
- Admit to med/surg
- Consult surgery
- NPO
- IVF NSS 100cc/hr
- consider NGT if vomiting returns
- supportive care
#CLL
follows with Dr. Sapp at [place]
#anxiety/panic disorder
- continue alprazolam and fluoxetine when able to tolerate
#GERD
#Hx cervical cancer
Code status: Full code
DVT prophylaxis: Lovenox sq
--- NOTE | 2024-08-12 20:58 | W.PN.UPDATE ---
Update Note
Progress Note Update
This is an addendum to the H&P written by Nicki Dc on 02/27/2024.
65-year-old female 63-year-old female past medical history of cervical cancer status post prior hysterectomy, multiple surgeries for lysis of adhesions most recently in 2018, history of recurrent SBO, CLL, GERD, anxiety/panic disorder, here for
abdominal pain, and vomiting. Had a few bowel movements today. Recently admitted 2 weeks ago for mild small bowel obstruction.
Vital signs normal. Labs unremarkable.
CT scan shows developing small bowel obstruction. Transition point in the lower abdomen/pelvis further 6 cm length segment of small bowel thickening suggestive of enteritis.
N.p.o., IV fluids, Zofran, Dilaudid, general surgery consulted.
[2024-08-12 21:00] VITALS: BP 125/79
[2024-08-12 22:06] VITALS: BP 128/78
[2024-08-12 22:07] VITALS: BMI 26.3
[2024-08-12] MEDS: BENADRYL 12.5 MG IV (22:40)
[2024-08-12 23:58] VITALS: BP 109/64
--- NOTE | 2024-08-13 00:11 | PTCARENOTE ---
Patient arrived from the ED via stretcher at approximately 2200. Patient ambulated from stretcher to bed x1 assist - gait steady. AAOx3. VSS as documented. Assessment as documented. Patient oriented to room. Bed in lowest position. Call villareal within
reach.
[2024-08-13] MEDS: DILAUDID 0.5 MG IV ×3 (00:57→22:33)
[2024-08-13] MEDS: NSS 1000 IV ×2 (07:35→17:06)
[2024-08-13 07:53] VITALS: BP 98/63
[2024-08-13 08:37] LABS: Blood Urea Nitrogen 12 mg/dl (7-17); Calcium 8.2 mg/dl (8.4-10.2); Carbon Dioxide 23 mmol/L (22-30); Chloride 111 mmol/L (98-107); Estimated Creatinine Clearance 98 ml/min; Glucose 86 mg/dl (70-99); Potassium 4.1 mmol/L (3.5-5.1); Sodium 139 mmol/L (135-145); eGFR > 60.00
--- NOTE | 2024-08-13 10:54 | W.PN.GS2 ---
Today's Communication / Plan
-
Continue diet regimen of clears
Continue IV fluid
Continue Zofran
Continue Dilaudid
Continue monitoring for flatus and BM
Encourage ambulation
SBO resolved through nonsurgical management
Assessment / Plan
-
Continue to progress diet regimen by allowing clears
Continue IV Fluids
Continue pain/nausea medications prn
Monitor for flatus episodes or BM
Time Spent
Total Time Spent with Patient (in minutes): 20
Subjective Data
-
Date of Service: August 13, 2024
63 y/o F presenting on 08/12/2024 with abdominal pain and vomiting for a recurrent small bowel obstruction that has been resolved. As of today, patient states she had a mild episode of nausea around 2 AM, but denies any fever or vomiting. Patient has
a significant PMH of cervical cancer s/p hysterectomy, multiple surgeries for lysis of adhesions, and a hx of recurrent SBO, CLL, and GERD, along with anxiety and panic disorder. Patient states that she is feeling much better and denies any pain or
tenderness. Patient states that she had 3 bowel movements yesterday and one recent episode of flatus earlier today. She also states that she hasn't eaten anything since she was admitted. Of note, the patient was recently admitted two weeks ago for
SBO that was managed conservatively.
Objective Data
-
Intake and Output
08/12/24 08/13/24 08/14/24
06:59 06:59 06:59
Intake Total 1200 / 1200
Balance 1200 / 1200
Intake:
IV fluids (Total) 1200 / 1200
Other:
Number of approximated MODERATE 2
amounts of urine
Vital Signs
Temp Pulse Resp BP Pulse Ox
97.9 F 59 16 98/63 96
08/13/24 07:53 08/13/24 07:53 08/13/24 07:53 08/13/24 07:53 08/13/24 07:53
Lab Results
08/12/24 18:50
08/13/24 07:33
Calcium 8.2 mg/dl (8.4-10.2) L D 08/13/24 07:33
Total Bilirubin 0.7 mg/dl (0.2-1.3) 08/12/24 18:50
AST 19 U/L (14-36) 08/12/24 18:50
ALT 21 U/L (0-35) 08/12/24 18:50
Alkaline Phosphatase 88 U/L (38-126) 08/12/24 18:50
Total Protein 6.4 g/dl (6.3-8.2) 08/12/24 18:50
Albumin 4.5 g/dl (3.5-5.0) 08/12/24 18:50
AFVSS
Labs WNL
Physical Exam
-
General: NAD
AAAOx3
Chest: No labored breathing
Abdomen: Mild tenderness and distension around abdominal area. No erythema noted.
Patient has a zamudio catheter: No
Patient has a central line: No
--- NOTE | 2024-08-13 11:45 | CON.GS ---
Consultation
-
Date/Time Consultation Performed: 08/13/24
Requesting Provider: Ana
Performing Provider: Jorgito
Reason for Consultation: pSBO
Medical History
-
Chief Complaint: Abd pain
History of Present Illness:
63F with acute onset abd pain that began yesterday, a/w retching, n/v. Denies f/c. Had this many times before and known to our service from multiple prior admissions for SBO, most recently 2 weeks ago. Last BM yesterday was normal. Denies dietary
indiscretion. Tried xanax and cannabis without relief. This am she feels '180 degrees' better and passed some flatus.
Past Medical History
Past Medical History: Other (history of small bowel obstruction CLL GERD anxiety/panic disorder Hx cervical cancer)
Past Surgical History: Other (cervical cancer status post prior hysterectomy, ex lap for unknown reasons, lap lysis of adhesions in 2018)
Social History
Tobacco: Non-Smoker
Alcohol: Occasional
Drug: Marijuana
Personal:
Living: With Family
Family History
Family History: Reviewed & Noncontributory
Allergies / Home Medications
Allergy/AdvReac Type Severity Reaction Status Date / Time
Sulfa (Sulfonamide Allergy Unknown Verified 07/25/24 07:29
Antibiotics)
�Medication �Instructions �Recorded �Confirmed �Type
fluoxetine 10 mg capsule (Prozac) 10 mg PO DAILY depression/anxiety 06/04/23 08/12/24 History
cyanocobalamin (vitamin B-12) 1,000 mcg PO DAILY Supplement 11/19/23 08/12/24 History
1,000 mcg tablet
alprazolam 0.5 mg tablet 0.5 mg PO TIDPRN PRN anxiety 02/27/24 08/12/24 History
cholecalciferol (vitamin D3) 50 50 mcg PO DAILY 08/12/24 08/12/24 History
mcg (2,000 unit) chewable tablet
diphenhydramine HCl 25 mg capsule 25 mg PO ONCE PRN antihistamine 08/12/24 08/12/24 History
(Benadryl)
polyethylene glycol 3350 17 gram 17 g PO Q48H 08/12/24 08/12/24 History
oral powder packet (Miralax)
Review of Systems
-
A 10 point review of systems was completed, and was negative except as per HPI.
Physical Exam
Vital Signs
Temp Pulse Resp BP Pulse Ox
97.9 F 59 16 98/63 96
08/13/24 07:53 08/13/24 07:53 08/13/24 07:53 08/13/24 07:53 08/13/24 07:53
08/12/24 08/13/24 08/14/24
06:59 06:59 06:59
Actual Weight 80.739 kg
Body Mass Index (BMI) 26.3
Lab Results
08/12/24 18:50
08/13/24 07:33
WBC 9.3 10^3/uL (4.8-10.8) 08/12/24 18:50
Hgb 15.7 g/dL (12.0-16.0) 08/12/24 18:50
Hct 44.6 % (37.0-47.0) 08/12/24 18:50
Plt Count 230 10^3/uL (130-400) 08/12/24 18:50
Abs Immat Gran (auto) 0.0 10^3/uL (0-0.05) 08/12/24 18:50
Neutrophils % 49.9 % (42.2-75.2) 08/12/24 18:50
Physical Exam
General: Well Developed, Well Nourished and No Apparent Distress
GI: Soft, Non Tender and Non Distended
Skin: Warm and Dry
Hematologic/Lymphatic: No Lymphadenopathy
Psych: Calm
Data Reviewed
-
CT Scan: Image Personally Visualized and interpreted, Report Reviewed by me and Discussed with Patient
Labs: Labs Reviewed by me
Old Records: Reviewed
Assessment / Plan
-
63F with resolving pSBO
AFVSS, exam benign, passing flatus, clinically improved
Labs unremarkable
CT with pSBO, right pelvis transition point, decompressed distal sb with some wall edema suggestive of possible enteritis, no PV gas, no free air, no pneumatosis
Plan:
Adv to CLD
Ambulate
DC IVF when PO intake adequate
PRN pain meds and anti-emetics
Home meds
DVT ppx
--- NOTE | 2024-08-13 11:59 | W.PN.HOSP.TC ---
Today's Communication/Plan
-
ADAT
supportive care
Assessment / Plan
Assessment / Plan
Physical Exam
General: Well Developed, Well Nourished and No Apparent Distress
HEENT: NormoCephalic, Moist mucous membranes, Atraumatic, Nose Appears Normal and Ears Appear Normal
Respiratory: Clear
Cardiac: S1/S2 and Regular Rhythm
GI: Soft, Non Tender, Normal Bowel Sounds and Tender (diffusely)
Rectal: Deferred by Provider
Genito-urinary: Deferred by me
Musculoskeletal: No Clubbing, No Cyanosis and No Edema
Neuro: Awake, Alert, AO x 3 and Nonfocal/grossly intact
Psych: Calm and Intact Judgment/Insight
#recurrent small bowel obstruction
Abd/Pel CT: CT findings most suspicious for a developing small bowel obstruction. The transition point is located in the lower abdomen/pelvis where there is a 6 cm in length segment of small bowel wall
thickening suggestive of an enteritis.
- Improving
- ADAT - CLD
- surgery consulted
-Supportive care
#CLL
follows with Dr. Sapp at [place]
#anxiety/panic disorder
- continue alprazolam and fluoxetine when able to tolerate
#GERD
#Hx cervical cancer
Code status: Full code
DVT prophylaxis: Lovenox sq
Anticipated Discharge: Within 24 hours
Subjective/Interval History
-
Date of Service: August 13, 2024
feeling better, passing flatus, ambulating
Objective Data
-
Labs:
Laboratory Results
08/13/24
07:33
Sodium 139
Potassium 4.1
Chloride 111 H
Carbon Dioxide 23
BUN 12
Creatinine 0.6
Glucose 86
Calcium 8.2 L D
Vital Signs:
Vital Signs
Temp Pulse Resp BP Pulse Ox
97.9 F 59 16 98/63 96
08/13/24 07:53 08/13/24 07:53 08/13/24 07:53 08/13/24 07:53 08/13/24 07:53
I&O
08/12/24 08/13/24 08/14/24
06:59 06:59 06:59
Intake Total 1200 / 1200
Balance 1200 / 1200
Review of Systems
-
History Source: Patient
All other systems: Not reviewed unless documented
Physical Exam
-
General: Negative Cachectic
HEENT: Negative Oxygen
GI: Soft and Nontender; Negative Normal Bowel Sounds (Decreased bowel sounds)
Neuro: Awake, Alert, Oriented and No Motor Deficits
Data Reviewed
-
Total Time Spent with Patient (in minutes): 55
CT Scan: Report Reviewed by me
Labs: Labs Reviewed by me
--- NOTE | 2024-08-13 13:58 | CM ---
Reviewed the chart notes and spoke with the patient and her spouse at the bedside. The patient resides with spouse in a two story home with two steps to enter. The patient reports no DME/VN/SNF in the past. The patient confirmed her pharmacy of
choice is [facility] [address] [place]. CM continues to be available to patient/family and is monitoring medical plan for needs at discharge.
Plan: Discharge to home when medically stable. Patient's spouse will provide transportation.
[2024-08-13 15:53] VITALS: BP 108/65
[2024-08-13] MEDS: LOVENOX 40 MG SC (17:04)
[2024-08-13 17:31] LABS: Urine Character Clear (Clear)
[2024-08-13] MEDS: ZOFRAN 4 MG IV (17:57)
[2024-08-13] MEDS: MOTRIN 200 MG PO (21:44)
[2024-08-13] MEDS: MELATONIN 5 MG PO (21:44)
[2024-08-13] MEDS: BENADRYL 12.5 MG IV (21:45)
[2024-08-13 23:38] VITALS: BP 99/66
[2024-08-14] VITALS (11 sets, daily range): BP systolic 95–120; BP diastolic 51–65
[2024-08-14 06:49] LABS: Hematocrit 36.8 % (37.0-47.0); Hemoglobin 12.2 g/dL (12.0-16.0); Mean Corp Hgb Conc. 33.2 g/dL (33.0-37.0); Mean Corpuscular Volume 94.6 fL (81.0-99.0); Platelet Count 169 10^3/uL (130-400); Red Cell Dist. Width 13.2 % (11.5-14.5)
[2024-08-14 07:32] LABS: ALT (SGPT) 15 U/L (0-35); AST (SGOT) 16 U/L (14-36); Albumin 3.2 g/dl (3.5-5.0); Alkaline Phosphatase 65 U/L (38-126); Blood Urea Nitrogen 8 mg/dl (7-17); Calcium 8.4 mg/dl (8.4-10.2); Carbon Dioxide 21 mmol/L (22-30); Chloride 112 mmol/L (98-107); Estimated Creatinine Clearance 98 ml/min; Glucose 72 mg/dl (70-99); Potassium 3.9 mmol/L (3.5-5.1); Sodium 138 mmol/L (135-145); Total Protein 5.0 g/dl (6.3-8.2); eGFR > 60.00
[2024-08-14] MEDS: NSS 1000 IV (08:14)
[2024-08-14] MEDS: DILAUDID 0.5 MG IV ×3 (08:20→16:34)
[2024-08-14] MEDS: ZOFRAN 4 MG IV (08:21)
--- NOTE | 2024-08-14 08:43 | W.PN.GS2 ---
Addendum entered and electronically signed by Anjum Black MD 08/14/24 09:08:
Patient seen and examined in follow-up today with residents. Agree with documented progress note with additions noted here.
Still with some right lower quadrant abdominal pain. Did not have much clear liquids for dinner due to nausea and anorexia. No vomiting. She has passed a bit of flatus but no BM over the last 24 hours.
AFVSS
NAD AAO x 3
ABD: Softly distended, mild tenderness to palpation, no rebound rigidity or guarding
Assessment/plan: 63-year-old female well-known to our surgical service with numerous admissions for small bowel obstruction. Her most recent episode was just over 2 weeks ago. Preceding that was February 2024 and November 2023. While these are all
partial obstructions that do alleviate themselves with conservative management there appears to be a similar radiographic appearance and transition point on all of the CT imaging studies. Given the fact that she has had 4 hospitalizations over the
last 10 months we discussed indications for consideration of surgical intervention.
Diagnostic laparoscopy, laparoscopic lysis of adhesions, possible open, possible bowel resection was reviewed in detail with the patient including the operative technique, potential operative findings and the management, alternative treatment
options including continued nonoperative management. We discussed potential benefits of surgery mainly being reducing but not eliminating future risk of small bowel obstruction. Risks such as but not limited to bleeding, infectious and related
complications, iatrogenic injury to surrounding viscera, anastomotic related complications. Reviewed the typical postoperative recovery pending operative findings and subsequent care.
Any of the patient's concerns or questions were fully addressed and she advises that she would like to proceed with surgical intervention over continue conservative management.
Patient has been added onto the OR schedule for today for the above outlined procedure.
NPO
Supportive care
Await OR availability today
[facility] on-call to the OR
Original Note:
Today's Communication / Plan
-
Patient is scheduled for surgery as early as this afternoon the remove scar tissue from the bowel.
Patient is educated on the risks and recovery process of her elective procedure.
Keep patient on IV fluids and prep for procedure
Assessment / Plan
-
Patient is recovering well via nonoperative management from her SBO
Dr. Black offered patient various options in terms of penitentiary treatment plan
Patient opted to have surgery for lysis of adhesions and scar tissue with bowel resection and anastomosis.
Time Spent
Total Time Spent with Patient (in minutes): 20
Subjective Data
-
Date of Service: August 14, 2024
63 y/o F with PMH of cervical cancer s/p hysterectomy, multiple surgeries for lysis of adhesions, and Hx of recurrent SBO, CLL, GERD and anxiety/panic disorder, presented on August 12 with recurrent abdominal pain and vomiting indicative of a mild
small bowel obstruction. Patients obstruction was resolved nonoperatively. She has been tolerating a clears diet, ambulating well, passing gas and had 3 bowel movements since yesterday. She denies any fever, chills, nausea or vomiting. Patient
states that she isn't in any pain but she does display frustration with the frequency of her condition.
Objective Data
-
Intake and Output
08/13/24 08/14/24 08/15/24
06:59 06:59 06:59
Intake Total 1200 / 1200 2039
Balance 1200 / 1200 2039
Intake:
Oral fluids 840 / 840
IV fluids (Total) 1200 / 1200 1200 / 1200
Other:
Number of approximated MODERATE 2 2
amounts of urine
Vital Signs
Temp Pulse Resp BP Pulse Ox
98 F 63 20 95/51 96
08/14/24 07:00 08/14/24 07:00 08/14/24 07:00 08/14/24 07:00 08/14/24 07:00
Lab Results
08/14/24 06:36
08/14/24 06:36
Calcium 8.4 mg/dl (8.4-10.2) 08/14/24 06:36
Total Bilirubin 0.6 mg/dl (0.2-1.3) 08/14/24 06:36
AST 16 U/L (14-36) 08/14/24 06:36
ALT 15 U/L (0-35) 08/14/24 06:36
Alkaline Phosphatase 65 U/L (38-126) 08/14/24 06:36
Total Protein 5.0 g/dl (6.3-8.2) L D 08/14/24 06:36
Albumin 3.2 g/dl (3.5-5.0) L 08/14/24 06:36
AFVSS
Lab values WNL
Physical Exam
-
General: NAD
AAAOx3
Chest: No labored breathing
Abdomen: mild distention and discomfort on palpation of the abdominal area. No swelling or erythema
Patient has a zamudio catheter: No
Patient has a central line: No
[2024-08-14] MEDS: NORMOSOL-R/PLASMALYTE-A 1000 IV ×3 (09:43→23:42)
[2024-08-14] MEDS: XANAX 0.5 MG PO (09:44)
--- NOTE | 2024-08-14 12:29 | W.SUR.PREOP ---
Pre-Operative Surgical Note
-
I have examined this patient prior to the performance of the scheduled procedure.
The patient's condition is unchanged from the time of the current History and
Physical and the patient is able to undergo the scheduled procedure.
--- NOTE | 2024-08-14 13:27 | CM ---
OR today for Dx laparoscopy, laparoscopic lysis of adhesions, possibly open, possible bowel resection. Discharge POC: TBD following surgery.
--- NOTE | 2024-08-14 15:00 | W.PN.HOSP.TC ---
Today's Communication/Plan
-
OR today
NPO
Assessment / Plan
Assessment / Plan
Physical Exam
General: Well Developed, Well Nourished and No Apparent Distress
HEENT: NormoCephalic, Moist mucous membranes, Atraumatic, Nose Appears Normal and Ears Appear Normal
Respiratory: Clear
Cardiac: S1/S2 and Regular Rhythm
GI: Soft, Non Tender, Normal Bowel Sounds and Tender (diffusely)
Rectal: Deferred by Provider
Genito-urinary: Deferred by me
Musculoskeletal: No Clubbing, No Cyanosis and No Edema
Neuro: Awake, Alert, AO x 3 and Nonfocal/grossly intact
Psych: Calm and Intact Judgment/Insight
#recurrent small bowel obstruction
Abd/Pel CT: CT findings most suspicious for a developing small bowel obstruction. The transition point is located in the lower abdomen/pelvis where there is a 6 cm in length segment of small bowel wall
thickening suggestive of an enteritis.
- gong to OR today
- NPO
- surgery consulted
-Supportive care
#CLL
follows with Dr. Sapp at [place]
#anxiety/panic disorder
- continue alprazolam and fluoxetine when able to tolerate
#GERD
#Hx cervical cancer
Code status: Full code
DVT prophylaxis: Lovenox sq
Total time spent on today's encounter was 50 minutes which included time spent in counseling the patient/family regarding diagnosis and treatment plan as listed above, goals of care, and symptom management. Case was discussed with nursing staff,
specialists, and care coordinators/case management. All labs and imaging personally reviewed by me. Remainder the time spent in detailed review of previous records, lab data, imaging, and other medical provider documentation.
Anticipated Discharge: Today
Subjective/Interval History
-
Date of Service: August 14, 2024
worsening symptoms overnight
Objective Data
-
Labs:
Laboratory Results
08/14/24
06:36
WBC 5.8
Hgb 12.2 D
Hct 36.8 L
Plt Count 169 D
Sodium 138
Potassium 3.9
Chloride 112 H
Carbon Dioxide 21 L
BUN 8
Creatinine 0.6
Glucose 72
Calcium 8.4
Total Bilirubin 0.6
AST 16
ALT 15
Alkaline Phosphatase 65
Vital Signs:
Vital Signs
Temp Pulse Resp BP Pulse Ox
98 F 63 20 95/51 96
08/14/24 07:00 08/14/24 07:00 08/14/24 07:00 08/14/24 07:00 08/14/24 07:00
I&O
08/13/24 08/14/24 08/15/24
06:59 06:59 06:59
Intake Total 1200 / 1200 2039
Balance 1200 / 1200 2039
Review of Systems
-
History Source: Patient
All other systems: Not reviewed unless documented
Physical Exam
-
General: Negative Cachectic
HEENT: Negative Oxygen
GI: Soft and Nontender; Negative Normal Bowel Sounds (Decreased bowel sounds)
Neuro: Awake, Alert, Oriented and No Motor Deficits
Data Reviewed
-
Total Time Spent with Patient (in minutes): 55
CT Scan: Report Reviewed by me
Labs: Labs Reviewed by me
--- NOTE | 2024-08-14 15:20 | W.IMMPOSTOP ---
Addendum entered and electronically signed by Anjum Black MD 08/21/24 18:42:
#[id number]
Original Note:
Surgical Immed Post Op Note
-
Primary Surgeon: Anjum Black MD
Assisting Surgeon: Bela TURK
Pre-op Diagnosis: Multiple recurrent pSBO
Post-op Diagnosis: Distal ileal strictures x 4
Procedure Performed: Laparoscopic Assisted Small Bowel Resection x 2, JO
Anesthesia Type: GETA +0.25% Marcaine/1% lidocaine fascial and incisional block
Specimen / Cultures: Small bowel resection x 2 -distal ileum
Estimated Blood Loss: 20 mL
Complications: None immediate
Operative Findings: Modest distal ileal adhesions lysed laparoscopically. Visible areas of stricturing identified in the distal ileum with resultant partial SBO. Lower midline hand-assisted port placed for small bowel extraction confirming for
palpable stricture sites. 3 were adjacent to each other with 1 more proximal. 3 distal sites resected en bloc -35cm -[id number] Vijay technique anastomosis with CARLA 80 purple. Few centimeter short segment small bowel resection at more
proximal isolated site of pSBO; [id number] Vijay technique anastomosis with CARLA purple stapler. No additional adhesions noted. 1 more proximal site of slight nodularity along the mesenteric border of small bowel but elected not to resect as
there did not appear to be any signs of luminal narrowing or chronic stricturing similar to distal ileal sites identified.
Patient and spouse updated postoperatively via phone call
[2024-08-14] MEDS: TORADOL 10 MG IV ×2 (16:39→23:37)
[2024-08-14] MEDS: DILAUDID 1 MG IV ×2 (17:39→20:47)
[2024-08-14] MEDS: BENADRYL 12.5 MG IV (21:51)
[2024-08-15] MEDS: DILAUDID 1 MG IV (01:32)
[2024-08-15 03:28] VITALS: BP 103/56
[2024-08-15] MEDS: ZOFRAN 4 MG IV ×2 (05:27→20:31)
[2024-08-15] MEDS: TORADOL 10 MG IV ×2 (05:37→22:52)
[2024-08-15 07:20] VITALS: BP 99/57
[2024-08-15 07:30] LABS: Hematocrit 37.5 % (37.0-47.0); Hemoglobin 12.6 g/dL (12.0-16.0); Mean Corp Hgb Conc. 33.6 g/dL (33.0-37.0); Mean Corpuscular Volume 93.1 fL (81.0-99.0); Platelet Count 133 10^3/uL (130-400); Red Cell Dist. Width 12.7 % (11.5-14.5)
--- NOTE | 2024-08-15 07:38 | W.PN.GS2 ---
Today's Communication / Plan
-
-- No major changes from surgical perspective
-- Lovenox resumed
Assessment / Plan
-
Patient is a 63 yo F p/w recurrent pSBO likely secondary to adhesions
POD#1 s/p laparoscopic assisted JO, and SBR x2
AVSS, BP soft
Labs with normal WBC, stable Hb, BMP pending
Recovering well overall. Awaiting ROBF.
-- NPO, NGT decompression
-- IVF
-- Pain control: Toradol and IV Dilaudid PRN
-- OOB/ambulate
-- Zamudio removed, due to void
-- DVT: Lovenox
-- GI: PPI
Subjective Data
-
Date of Service: August 15, 2024
Pain overall well controlled. No nausea or emesis. No flatus or BM.
Objective Data
-
Intake and Output
08/14/24 08/15/24 08/16/24
06:59 06:59 06:59
Intake Total 2039
Output Total 1899
Balance 2039 130 / 130
Intake:
Oral fluids 840 / 840 0 / 0
IV fluids (Total) 1200 / 1200 1909
normosol 350 / 350
Amount instilled into GI Tube ( 120 / 120
Total)
[place] Sump 120 / 120
Output:
Gastrointestinal tube output ( 375 / 375
Total)
[place] Sump 375 / 375
Urine, Zamudio 1525 / 1525
Other:
Number of approximated MODERATE 2
amounts of urine
Vital Signs
Temp Pulse Resp BP Pulse Ox
99.1 F 74 16 99/57 95
08/15/24 07:20 08/15/24 07:20 08/15/24 07:20 08/15/24 07:20 08/15/24 07:20
Lab Results
08/15/24 06:18
Calcium 8.4 mg/dl (8.4-10.2) 08/14/24 06:36
Total Bilirubin 0.6 mg/dl (0.2-1.3) 08/14/24 06:36
AST 16 U/L (14-36) 08/14/24 06:36
ALT 15 U/L (0-35) 08/14/24 06:36
Alkaline Phosphatase 65 U/L (38-126) 08/14/24 06:36
Total Protein 5.0 g/dl (6.3-8.2) L D 08/14/24 06:36
Albumin 3.2 g/dl (3.5-5.0) L 08/14/24 06:36
Physical Exam
-
Gen: NAD
HEENT: light brownish output, non-bilious
Abd: soft, mild tenderness, mild distension, non-peritoneal, incisions c/d/i - no erythema, ecchymosis or drainage
Patient has a zamudio catheter: No
Patient has a central line: No
[2024-08-15] MEDS: NSS (PRESERVATIVE FREE) 10 ML IV (08:19)
[2024-08-15] MEDS: PROTONIX IV 40 MG IV (08:20)
[2024-08-15] MEDS: DILAUDID 0.5 MG IV ×4 (08:22→20:36)
[2024-08-15 08:49] LABS: ALT (SGPT) 14 U/L (0-35); AST (SGOT) 18 U/L (14-36); Albumin 3.3 g/dl (3.5-5.0); Alkaline Phosphatase 71 U/L (38-126); Blood Urea Nitrogen 9 mg/dl (7-17); Calcium 8.2 mg/dl (8.4-10.2); Carbon Dioxide 19 mmol/L (22-30); Chloride 107 mmol/L (98-107); Estimated Creatinine Clearance 98 ml/min; Glucose 63 mg/dl (70-99); Potassium 3.9 mmol/L (3.5-5.1); Sodium 135 mmol/L (135-145); Total Protein 5.0 g/dl (6.3-8.2); eGFR > 60.00
[2024-08-15 10:31] VITALS: BMI 26.3
[2024-08-15 11:25] VITALS: BP 115/63
[2024-08-15] MEDS: NORMOSOL-R/PLASMALYTE-A 1000 IV (12:36)
[2024-08-15 15:16] VITALS: BP 108/61
[2024-08-15] MEDS: LOVENOX 40 MG SC (17:03)
[2024-08-15 23:12] VITALS: BP 121/65
[2024-08-16] MEDS: DILAUDID 0.5 MG IV ×3 (00:55→19:49)
[2024-08-16 06:23] LABS: Hematocrit 35.0 % (37.0-47.0); Hemoglobin 11.9 g/dL (12.0-16.0); Mean Corp Hgb Conc. 34.0 g/dL (33.0-37.0); Mean Corpuscular Volume 93.3 fL (81.0-99.0); Platelet Count 178 10^3/uL (130-400); Red Cell Dist. Width 12.9 % (11.5-14.5)
[2024-08-16] MEDS: ZOFRAN 4 MG IV ×2 (06:30→13:48)
[2024-08-16 06:42] LABS: ALT (SGPT) 12 U/L (0-35); AST (SGOT) 15 U/L (14-36); Albumin 3.3 g/dl (3.5-5.0); Alkaline Phosphatase 64 U/L (38-126); Blood Urea Nitrogen 10 mg/dl (7-17); Calcium 8.5 mg/dl (8.4-10.2); Carbon Dioxide 18 mmol/L (22-30); Chloride 109 mmol/L (98-107); Estimated Creatinine Clearance 98 ml/min; Glucose 70 mg/dl (70-99); Potassium 4.0 mmol/L (3.5-5.1); Sodium 136 mmol/L (135-145); Total Protein 5.1 g/dl (6.3-8.2); eGFR > 60.00
[2024-08-16 07:20] VITALS: BP 124/67
[2024-08-16] MEDS: NSS (PRESERVATIVE FREE) 10 ML IV (07:53)
[2024-08-16] MEDS: PROTONIX IV 40 MG IV (07:53)
[2024-08-16] MEDS: NORMOSOL-R/PLASMALYTE-A 1000 IV (09:33)
[2024-08-16] MEDS: TORADOL 10 MG IV (10:06)
--- NOTE | 2024-08-16 12:49 | W.PN.GS2 ---
Today's Communication / Plan
-
-- Awaiting ROBF
-- mIVF
Assessment / Plan
-
Patient is a 63 yo F p/w recurrent pSBO likely secondary to adhesions
POD#2 s/p laparoscopic assisted JO, and SBR x2
AVSS, BP soft
Labs with normal WBC, stable Hb, normal lytes and renal function
Recovering well overall. Awaiting ROBF.
-- NPO, NGT decompression
-- mIVF
-- Pain control: Toradol and IV Dilaudid PRN
-- OOB/ambulate
-- DVT: Lovenox
-- GI: PPI
Subjective Data
-
Date of Service: August 16, 2024
No complaints. Mild crampy abdominal discomfort. No nausea or vomiting. No flatus or BM. No fevers. Voiding. No ambulation.
Objective Data
-
Intake and Output
08/15/24 08/16/24 08/17/24
06:59 06:59 06:59
Intake Total 2029 90 / 90 270 / 270
Output Total 1899 675 / 675
Balance 130 / 130 -585 / -585 270 / 270
Intake:
Oral fluids 0 / 0
IV fluids (Total) 1909 240 / 240
normosol 350 / 350
Amount instilled into GI Tube ( 120 / 120 90 / 90 30 / 30
Total)
[place] Sump 120 / 120 90 / 90 30 / 30
Output:
Gastrointestinal tube output ( 375 / 375 375 / 375
Total)
[place] S[place] 375 / 375 375 / 375
Urine, Zamudio 1525 / 1525
Urine, Voided 300 / 300
Other:
Number of approximated MODERATE 3
amounts of urine
Number of approximated LARGE 2
amounts of urine
Vital Signs
Temp Pulse Resp BP Pulse Ox
98.3 F 74 16 124/67 96
08/16/24 07:20 08/16/24 07:20 08/16/24 07:20 08/16/24 07:20 08/16/24 08:04
Lab Results
08/16/24 05:56
08/16/24 05:56
Calcium 8.5 mg/dl (8.4-10.2) 08/16/24 05:56
Total Bilirubin 0.7 mg/dl (0.2-1.3) 08/16/24 05:56
AST 15 U/L (14-36) 08/16/24 05:56
ALT 12 U/L (0-35) 08/16/24 05:56
Alkaline Phosphatase 64 U/L (38-126) 08/16/24 05:56
Total Protein 5.1 g/dl (6.3-8.2) L 08/16/24 05:56
Albumin 3.3 g/dl (3.5-5.0) L 08/16/24 05:56
Physical Exam
-
Gen: NAD
HEENT: NGT currently clamped
Abd: soft, mild tenderness around midline incision, ND, non-peritoneal, incisions c/d/i - no erythema, ecchymosis or drainage
Patient has a zamudio catheter: No
Patient has a central line: No
[2024-08-16] MEDS: D5/0.45%NSS with KCL 20 MEQ 1000 IV (13:48)
[2024-08-16 15:20] VITALS: BP 123/69
[2024-08-16] MEDS: LOVENOX 40 MG SC (17:02)
[2024-08-16 23:43] VITALS: BP 131/75
[2024-08-17] MEDS: D5/0.45%NSS with KCL 20 MEQ 1000 IV ×2 (01:20→15:07)
[2024-08-17] MEDS: TORADOL 10 MG IV ×3 (01:29→22:25)
[2024-08-17 05:53] LABS: Hematocrit 33.9 % (37.0-47.0); Hemoglobin 11.8 g/dL (12.0-16.0); Mean Corp Hgb Conc. 34.8 g/dL (33.0-37.0); Mean Corpuscular Volume 90.6 fL (81.0-99.0); Platelet Count 186 10^3/uL (130-400); Red Cell Dist. Width 12.8 % (11.5-14.5)
[2024-08-17 06:26] LABS: ALT (SGPT) 11 U/L (0-35); AST (SGOT) 14 U/L (14-36); Albumin 3.3 g/dl (3.5-5.0); Alkaline Phosphatase 66 U/L (38-126); Blood Urea Nitrogen 6 mg/dl (7-17); Calcium 8.8 mg/dl (8.4-10.2); Carbon Dioxide 21 mmol/L (22-30); Chloride 109 mmol/L (98-107); Estimated Creatinine Clearance 98 ml/min; Glucose 132 mg/dl (70-99); Potassium 3.8 mmol/L (3.5-5.1); Sodium 136 mmol/L (135-145); Total Protein 5.2 g/dl (6.3-8.2); eGFR > 60.00
[2024-08-17] MEDS: ZOFRAN 4 MG IV (06:34)
[2024-08-17 07:20] VITALS: BP 128/71
[2024-08-17] MEDS: PROTONIX IV 40 MG IV (08:00)
[2024-08-17] MEDS: DILAUDID 0.5 MG IV (08:00)
[2024-08-17] MEDS: NSS (PRESERVATIVE FREE) 10 ML IV (08:01)
--- NOTE | 2024-08-17 09:26 | W.PN.GS2 ---
Today's Communication / Plan
-
-- DC NGT
-- Sips of clears
Assessment / Plan
-
Patient is a 63 yo F p/w recurrent pSBO likely secondary to adhesions
POD#3 s/p laparoscopic assisted JO, and SBR x2
AVSS, BP soft
Labs with normal WBC, stable Hb, normal lytes and renal function
Recovering well overall. Beginning to have signs of ROBF. Plan to D/C NGT and trial sips of clears throughout the day.
-- DC NGT
-- Sips of clears
-- mIVF
-- Pain control: Tylenol, Toradol and IV Dilaudid PRN
-- OOB/ambulate
-- DVT: Lovenox
-- GI: PPI
Subjective Data
-
Date of Service: August 17, 2024
Reports throat irritation and mucus. No nausea or vomiting. Abdominal discomfort well-controlled. Passing flatus, no BM. Ambulating. Voiding
Objective Data
-
Intake and Output
08/16/24 08/17/24 08/18/24
06:59 06:59 06:59
Intake Total 90 / 90 2310 / 2310
Output Total 675 / 675 80 / 80
Balance -585 / -585 2229 / 223
Intake:
IV fluids (Total) 2189 / 2189
Amount instilled into GI Tube ( 90 / 90 120 / 120
Total)
[place] Sump 90 / 90 120 / 120
Output:
Gastrointestinal tube output ( 375 / 375 80 / 80
Total)
[place] Sump 375 / 375 80 / 80
Urine, Voided 300 / 300
Other:
Number of approximated MODERATE 3 5
amounts of urine
Number of approximated LARGE 2
amounts of urine
Vital Signs
Temp Pulse Resp BP Pulse Ox
98.3 F 69 16 128/71 96
08/17/24 07:20 08/17/24 07:20 08/17/24 07:20 08/17/24 07:20 08/17/24 08:13
Lab Results
08/17/24 05:25
08/17/24 05:25
Calcium 8.8 mg/dl (8.4-10.2) 08/17/24 05:25
Total Bilirubin 0.7 mg/dl (0.2-1.3) 08/17/24 05:25
AST 14 U/L (14-36) 08/17/24 05:25
ALT 11 U/L (0-35) 08/17/24 05:25
Alkaline Phosphatase 66 U/L (38-126) 08/17/24 05:25
Total Protein 5.2 g/dl (6.3-8.2) L 08/17/24 05:25
Albumin 3.3 g/dl (3.5-5.0) L 08/17/24 05:25
Physical Exam
-
Gen: NAD
HEENT: thin light brown output
Abd: soft, mild tenderness, mild distension, non-peritoneal, incisions c/d/i - no erythema, ecchymosis or drainage
Patient has a zamudio catheter: No
Patient has a central line: No
[2024-08-17 15:35] VITALS: BP 133/82
--- NOTE | 2024-08-17 16:18 | CM ---
Reviewed the chart notes and spoke with the patient and her spouse at the bedside. NGT removed today. Ice chips and sips today. IMM reviewed. CM continues to be available to patient/family and is monitoring medical plan for needs at discharge.
Plan: Discharge to home when medically stable. No needs anticipated at this time.
[2024-08-17] MEDS: LOVENOX 40 MG SC (17:16)
[2024-08-17 23:00] VITALS: BP 130/72
[2024-08-18] MEDS: D5/0.45%NSS with KCL 20 MEQ 1000 IV ×2 (04:20→17:00)
[2024-08-18 06:53] LABS: Hematocrit 33.0 % (37.0-47.0); Hemoglobin 11.6 g/dL (12.0-16.0); Mean Corp Hgb Conc. 35.2 g/dL (33.0-37.0); Mean Corpuscular Volume 89.4 fL (81.0-99.0); Platelet Count 186 10^3/uL (130-400); Red Cell Dist. Width 12.8 % (11.5-14.5)
[2024-08-18 07:12] LABS: ALT (SGPT) 11 U/L (0-35); AST (SGOT) 15 U/L (14-36); Albumin 3.2 g/dl (3.5-5.0); Alkaline Phosphatase 57 U/L (38-126); Blood Urea Nitrogen 5 mg/dl (7-17); Calcium 8.9 mg/dl (8.4-10.2); Carbon Dioxide 25 mmol/L (22-30); Chloride 107 mmol/L (98-107); Estimated Creatinine Clearance 98 ml/min; Glucose 122 mg/dl (70-99); Potassium 4.1 mmol/L (3.5-5.1); Sodium 136 mmol/L (135-145); Total Protein 5.1 g/dl (6.3-8.2); eGFR > 60.00
[2024-08-18 08:08] VITALS: BP 128/73
[2024-08-18] MEDS: TORADOL 10 MG IV ×2 (08:18→22:18)
[2024-08-18] MEDS: PROTONIX IV 40 MG IV (08:21)
[2024-08-18] MEDS: NSS (PRESERVATIVE FREE) 10 ML IV (08:21)
--- NOTE | 2024-08-18 09:31 | W.PN.GS2 ---
Addendum entered and electronically signed by Dio Ronquillo MD 08/18/24 14:34:
I saw and examined the patient independently.
The Pest Control Applicator's note was reviewed and I agree with the note, assessment and plan except where noted below.
Comment: This is a 63-year-old female with recurrent SBO's now postoperative day 4 from a laparoscopic assisted lysis of adhesions with SBR x 2. Doing well, expected postoperative course, now with return of bowel function.
Clears, will advance diet as tolerated to low reds.
Continue IV fluids.
Pain control.
DVT prophylaxis
Can begin dispo planning, anticipate discharge home as early as tomorrow versus Sunday pending clinical progress.
Patient will follow-up with Dr. Black in 2 weeks, DCI instructions updated.
Original Note:
Today's Communication / Plan
-
Advance to clears
Educate patient on dietary restrictions for 2 weeks after discharge.
Plan Discharge if patient is able to tolerate advance diet and continue flatus and BM.
Assessment / Plan
-
Patient seems to be recovering well POD 4.
Advance patient diet to sips of clears
Continue IV Fluids
Pain Control: Tylenol, Toradol and IV Dilaudid PRN
OOB/Ambulate
DVT: Lovenox
GI: PPI
Time Spent
Total Time Spent with Patient (in minutes): 25
Subjective Data
-
Date of Service: August 18, 2024
63 y/o F presenting with recurrent SBO likely secondary to adhesions. Patient is POD 4 s/p laparoscopic assisted JO and SBRx2. Patient denies any f/c/n/v. Patient states that she has passed gas since yesterday and had a solid bowel movement earlier
this morning. She rates her pain a 2/10 and states that shes not in any pain until she tries to get up and walk. Patient states that she is ready to advance her diet.
Objective Data
-
Intake and Output
08/17/24 08/18/24 08/19/24
06:59 06:59 06:59
Intake Total 2310 / 2310 1000 / 1000
Output Total 80 / 80
Balance 2230 / 2230 1000 / 1000
Intake:
Oral fluids 100 / 100
IV fluids (Total) 2190 / 219 900 / 900
Amount instilled into GI Tube ( 120 / 120
Total)
[place] Sump 120 / 120
Output:
Gastrointestinal tube output ( 80 / 80
Total)
[place] Sump 80 / 80
Other:
Number of approximated MODERATE 5 1
amounts of urine
Vital Signs
Temp Pulse Resp BP Pulse Ox
98.6 F 69 16 128/73 97
08/18/24 08:08 08/18/24 08:08 08/18/24 08:08 08/18/24 08:08 08/18/24 08:41
Lab Results
08/18/24 06:03
08/18/24 06:03
Calcium 8.9 mg/dl (8.4-10.2) 08/18/24 06:03
Total Bilirubin 0.6 mg/dl (0.2-1.3) 08/18/24 06:03
AST 15 U/L (14-36) 08/18/24 06:03
ALT 11 U/L (0-35) 08/18/24 06:03
Alkaline Phosphatase 57 U/L (38-126) 08/18/24 06:03
Total Protein 5.1 g/dl (6.3-8.2) L 08/18/24 06:03
Albumin 3.2 g/dl (3.5-5.0) L 08/18/24 06:03
AFVSS
Labs: RBC HgB, Hct are low.
Glucose is elevated.
Physical Exam
-
General: NAD
AAAOx3
Chest: No labored breathing
Abdomen: Mild distention and tenderness on palpation of abdominal area. Scar is healing well. No erythema, redness, swelling or fluid.
Patient has a zamudio catheter: No
Patient has a central line: No
[2024-08-18] MEDS: XANAX 0.5 MG PO (09:54)
--- NOTE | 2024-08-18 12:40 | CM ---
CM met with pt bedside
She is not anticipating dc today as diet still advancing
IMM was issued day prior and remain valid
Spouse to transport home
Discharge Disposition- home, no needs, spouse transport
[2024-08-18 16:39] VITALS: BP 139/78
[2024-08-18] MEDS: LOVENOX 40 MG SC (17:00)
[2024-08-18] MEDS: PROZAC 10 MG PO (17:01)
[2024-08-18 23:00] VITALS: BP 137/75
[2024-08-19] MEDS: D5/0.45%NSS with KCL 20 MEQ 1000 IV (06:05)
--- NOTE | 2024-08-19 07:08 | W.PN.GS2 ---
Today's Communication / Plan
-
`
Assessment / Plan
-
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
AFVSS
Doing well postop with return to GI function
Plan: Low residue diet
Multimodal pain control options
Appears stable for discharge. D/C instructions reviewed.
Subjective Data
-
Date of Service: August 19, 2024
Patient seen and examined.
Feeling well, postoperative incisional pain is controlled. Occasional mild gas cramps.
No nausea, no vomiting, no heartburn or indigestion/reflux
Passing flatus and had multiple bowel movements yesterday
Tolerated dietary advancement well
Objective Data
-
Intake and Output
08/18/24 08/19/24 08/20/24
06:59 06:59 06:59
Intake Total 1000 / 1000 2640 / 2640
Balance 1000 / 1000 2640 / 2640
Intake:
Oral fluids 100 / 100 840 / 840
IV fluids (Total) 900 / 900 1800 / 1800
Other:
Number of approximated MODERATE 1 3
amounts of urine
Vital Signs
Temp Pulse Resp BP Pulse Ox
98.2 F 85 16 137/75 98
08/18/24 23:00 08/18/24 23:00 08/18/24 23:00 08/18/24 23:00 08/18/24 23:00
Lab Results
08/18/24 06:03
08/18/24 06:03
Calcium 8.9 mg/dl (8.4-10.2) 08/18/24 06:03
Total Bilirubin 0.6 mg/dl (0.2-1.3) 08/18/24 06:03
AST 15 U/L (14-36) 08/18/24 06:03
ALT 11 U/L (0-35) 08/18/24 06:03
Alkaline Phosphatase 57 U/L (38-126) 08/18/24 06:03
Total Protein 5.1 g/dl (6.3-8.2) L 08/18/24 06:03
Albumin 3.2 g/dl (3.5-5.0) L 08/18/24 06:03
Physical Exam
-
NAD AAO x 3
ABD: Soft, nondistended, minimal incisional tenderness
Incisions with glue dressings, no erythema, no open wounds, no drainage
[2024-08-19 07:40] VITALS: BP 119/74
[2024-08-19] MEDS: PROZAC 10 MG PO (08:15)
[2024-08-19] MEDS: PROTONIX IV 40 MG IV (08:15)
[2024-08-19] MEDS: NSS (PRESERVATIVE FREE) 10 ML IV (08:15)
--- NOTE | 2024-08-22 10:39 | W.DS.TRANS ---
Addendum entered and electronically signed by MEGHANA Emery 08/22/24 10:42:
dictated #[id number]
Original Note:
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
-
Discharge Instructions:
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
ileal strictures status post laparoscopic
assisted small bowel resection x2 with lysis of
adhesions
Diet Low Fiber
Additional Diets Smaller meals/portions scattered throughout the
day as abdominal bloating and distention may be
common for the first few weeks postoperatively
Activity No strenuous activity
Additional Activity do not lift over 20lbs for the next 6 weeks
Driving Restrictions No driving for 2 to 3 days or if using narcotics
Bathing Restrictions OK to Shower
Wound Care Allow the glue to flake off your incisions on
its own over the next 2-3 weeks. Avoid soaking
in tubs or pools during this time. Beneath the
glue are dissolving sutures
Instructions:
Stand-Alone Forms:
Changes to Home Medications: No
Discharge Medications:
DC Medications w/original date entered in [facility]
fluoxetine 10 mg capsule (Prozac) 10 mg PO DAILY depression/anxiety 06/04/23
cyanocobalamin (vitamin B-12) 1,000 mcg tablet 1,000 mcg PO DAILY Supplement 11/19/23
alprazolam 0.5 mg tablet 0.5 mg PO TIDPRN PRN anxiety 02/27/24
cholecalciferol (vitamin D3) 50 mcg (2,000 unit) chewable tablet 50 mcg PO DAILY 08/12/24
diphenhydramine HCl 25 mg capsule (Benadryl) 25 mg PO ONCE PRN antihistamine 08/12/24
polyethylene glycol 3350 17 gram oral powder packet (Miralax) 17 g PO Q48H 08/12/24
acetaminophen 500 mg tablet (Tylenol Extra Strength) 1,000 mg (2 x 500 mg) PO Q6HPRN PRN mild pain #1 tab 08/19/24
ibuprofen 200 mg tablet 400 mg (2 x 200 mg) PO Q6HPRN PRN moderate pain #1 tab 08/19/24
oxycodone 5 mg tablet 5 mg PO Q4HPRN PRN breakthrough/severe pain #5 tabs 08/19/24
Home Medication Changes
Pending Results: No
== END 2024-08-19 11:25 | disposition home or self-care (01) | DRG 331 ==
LOC: 2 SOUTH 21:21
PROVIDERS: Internal Medicine; Nurse Practitioner Family; Physician Assistant; ADMITTING PHYSICIAN Hospitalist; ATTENDING PHYSICIAN Surgery; CONSULT PHYSICIAN Surgery; EMERGENCY PHYSICIAN Student in an Organized Health Care Education/Training Program; FAMILY PHYSICIAN Family Medicine
PROC: 0DBB4ZZ Excision of Ileum, Percutaneous Endoscopic Approach (ICD-10-PCS; 2024-08-14)
PROC: 0DB84ZZ Excision of Small Intestine, Percutaneous Endoscopic Approach (ICD-10-PCS; 2024-08-14)
DX: K56.690 Other partial intestinal obstruction (principal); K66.0 Peritoneal adhesions (postprocedural) (postinfection); K21.9 Gastro-esophageal reflux disease without esophagitis; F41.0 Panic disorder [episodic paroxysmal anxiety]; F32.A Depression, unspecified; Z85.41 Personal history of malignant neoplasm of cervix uteri; F12.90 Cannabis use, unspecified, uncomplicated; Z90.710 Acquired absence of both cervix and uterus; Z88.2 Allergy status to sulfonamides; Z85.6 Personal history of leukemia
CPT/HCPCS: 74018; 74177; 80048; 80053; 81003; 83605; 83690; 85025; 85027; 88307; 93005; 96374; 96375; 96376; 99284; C1776; J1335; Q9967